=== PATIENT | female | born 1950 | race Caucasian/White ===

== ENCOUNTER → 2018-07-19 10:52 | Outpatient (CLI) | payer MEDICARE, SELFPAY ==
[2018-07-19 10:41] VITALS: BMI 39.2
== END ==
PROVIDERS: PCP Family Medicine; Referring Provider Orthopaedic Surgery; Visit Provider Orthopaedic Surgery
DX: M25.561 Pain in right knee (principal); M25.562 Pain in left knee

== ENCOUNTER → 2018-07-19 10:57 | Outpatient (CLI) | payer MEDICARE, SELFPAY ==
[2018-07-19 10:41] VITALS: BMI 39.2
--- NOTE | 2018-07-19 11:09 | RAD_ITS ---
STUDY: X-RAY - LEFT KNEE REASON FOR EXAM: Female, 67 years old. Knee pain. TECHNIQUE: 4 view(s) of the knee. COMPARISON: None. FINDINGS: Normal visualized distal femur. Normal visualized proximal tibia and fibula. Normal proximal tibiofibular articulation. There is no demonstrated fracture. There is severe degenerative arthrosis of the medial femorotibial compartment with severe joint space narrowing. There is severe degenerative arthrosis of the lateral femorotibial compartment with severe joint space narrowing. There is severe degenerative arthrosis of the patellofemoral articulation. There is no demonstrated joint effusion. The soft tissue structures are unremarkable. RAD/Knee 4 or More Views IMPRESSION: Severe degenerative arthrosis. Electronically Signed: Singh Gomez MD at 23:49 EST Tel , Service support ,
--- NOTE | 2018-07-19 11:09 | RAD_ITS ---
STUDY: X-RAY - RIGHT KNEE REASON FOR EXAM: Female, 67 years old. Knee pain. TECHNIQUE: 4 view(s) of the knee. COMPARISON: None. FINDINGS: Normal visualized distal femur. Normal visualized proximal tibia and fibula. Normal proximal tibiofibular articulation. There is no demonstrated fracture. There is severe degenerative arthrosis of the medial femorotibial compartment with severe joint space narrowing. There is severe degenerative arthrosis of the lateral femorotibial compartment with severe joint space narrowing. There is severe degenerative arthrosis of the patellofemoral articulation. There is lateral subluxation of the patella. There is no demonstrated joint effusion. The soft tissue structures are unremarkable. RAD/Knee 4 or More Views IMPRESSION: Severe degenerative arthrosis. Electronically Signed: Singh Gomez MD at 23:48 EST Tel , Service support ,
--- OUTSIDE RECORDS SUMMARY | 2018-09-20 21:12 | XMS RPT_ITS ---
:1950 Author Organization OHIP Care Team Providers Name Role Phone Armen Westfall Attending Unavailable Natalia Valladares Attending Unavailable BRYCE SOMERS Referring Unavailable Armen Westfall Attending Unavailable Armen Westfall Referring Unavailable Armen Westfall Attending Unavailable Armen Westfall Referring Unavailable ADONIS WEST Attending Unavailable IMNATHANIEL Referring Unavailable Bryce Somers Primary Care Unavailable PROBLEMS PROBLEMS DATE TYPE CONDITION / CODE ATTENDING STATUS SOURCE 07/19/2018 Unknown M25.561 - Pain in Armen Westfall Active [place] right knee / Community M25.561(ICD-10) Hospital Repository 07/19/2018 Unknown M25.562 - Pain in Armen Westfall Active [place] left knee / Community M25.562(ICD-10) Hospital Repository 07/19/2018 Unknown M17.0 - Bilateral Armne Westfall Active [place] primary Community osteoarthritis of Hospital knee / M17.0(ICD-10) Repository PROCEDURES PROCEDURES No Procedure Records FoundRESULTS RESULTS ORTHOPEDIC VISIT Observed: 07/19/2018 Status: F Source: [place] REPORT 12:38 PM [facility] REPOSITORY [facility] [address] [place] [address] [address] [place] [address] OFFICE VISIT Date of Service: 07/19/18 MR#: [id number] Acct: [id number] Name: CONCHIS CHAPPELL Rep #: [id number] : 1950 Provider: Armen Westfall DO Age/Sex: 67/F [place] [facility] Status: Signed Intake Vital Signs07/19/18 Body Mass Index (BMI) 39.2 07/19/18 Height 5 ft 3 in 07/19/18 Weight: 215 lb 07/19/18 Body Mass Index (BMI) 38.0 Intake Visit Reasons: BILAT KNEES Is patient in pain?: Yes Pain scale (1-10): 5 Allergies No Known Allergies Allergy (Verified 07/19/18 10:41) Medications levothyroxine 175 mcg tablet 175 mcg PO DAILY 05/18/18 [History Confirmed 05/18/18] lisinopril 10 mg-hydrochlorothiazide 12.5 mg tablet 1 tab PO DAILY 05/18/18 [History Confirmed 05/18/18] PFSH Medical History Thyroid disorder (Acute) Hypertension (Chronic) Surgical History History of hip replacement (Acute) Hx of cholecystectomy (Acute) Family History Father Heart disease Social History Smoking Status: Never smoker alcohol intake: never substance use type: does not use caffeine: Yes what type of physical activity do you participate in: walking seatbelt use: always do you feel safe at home: Yes additional social history: Gary- both are retired HPI BILAT KNEES: Details: CONCHIS CHAPPELL is a 67 year old F new patient here today for bilateral knee pain, left greater than right. Patient states that she has had bilateral knee pain for many years. Patient notes that she fell directly on her left knee which has increased her pain this past March. Her pain is over her lateral knees. Patient has popping and clicking. She has swelling. Patient has increased pain with ambulation or prolonged standing. She notes that she had supartz injections into her left knee a few years ago which was helpful. She denies any recent cortisone injections. Patient denies any formal physical therapy. She denies any knee bracing. Patient denies any recent xrays or MRI.Denies numbness, tingling or other associated symptoms.She denies any pain medications. Patient has a history of a right hip replacement in 2013. ROS Const Reports system reviewed and no additional complaints, except as docu Eyes Reports system reviewed and no additional complaints, except as docu ENT Reports system reviewed and no additional complaints, except as docu Card Reports system reviewed and no additional complaints, except as docu Resp Reports system reviewed and no additional complaints, except as docu GI Reports system reviewed and no additional complaints, except as docu Reports system reviewed and no additional complaints, except as docu Musc Reports joint pain Skin/Breast Reports system reviewed and no additional complaints, except as docu Neuro Yes system reviewed and no additional complaints, except as docu Psych Reports system reviewed and no additional complaints, except as docu Endo Reports system reviewed and no additional complaints, except as docu Ortho Exam Right Knee Patella Translation: 1 Left Knee Contralateral Normal: No Swelling: No Examination: Yes med jt line tenderness, Yes Lat jt line tenderness Stability: NML: Anterior Drawer, NML: Posterior Drawer, NML: Valgus 0, NML: Varus 0 Patella Translation: 1 KNEE: mild edema. -6 degrees of extension. no jt effusion or erythema. 68 degrees in flexion. faint pedal pulse. No gross motor or sensory deficit Supplemental Info Personally reviewed patients bilateral knee xrays from 07/19/18 which showed severe tricompartmental osteoarthritis. Assessment AND Plan Problems 1. Bilateral primary osteoarthritis of knee M17.0 Plan Discussed continued conservative care versus surgical management risk benefits and alternative alternatives for both were reviewed extensively including risk of bleeding infection blood clot continued pain and stiffness and expected postoperative course for total knee replacement Patient has a history of gastris with naprosyn. Spoke with the patient about being a candidate of a total knee arthroplasty due to her severe OA. Explained the surgery procedure and recovery. She will be in the hospital for a few days and then may go home for home PT. She would begin outpatient PT at 2 weeks post op. Spoke with her about the risk of stiffness. She should begin PT prior to surgery as she would like to wait for surgery to work on her range of motion and quad strengthening. Patient will be on a blood thinner. Follow up 1 month prior to surgery for surgery consent or sooner if pain, swelling, numbness or associated symptoms, or concerns develop. All questions answered. Patient in agreement of plan. Orders Orders: Coding Level of Care Code Off vis,est,level 3 Diagnoses Bilateral primary osteoarthritis of knee M17.0 07/19/18 1238 <Electronically signed by Armen Borruso DO> Date Armen Westfall DO Cosigner Signature: Date (if applicable) CC: Bryce Somers DO KNEE 4 OR MORE Observed: 07/19/2018 Status: F Source: [place] VIEWS 11:10 AM [facility] REPOSITORY [facility] Imaging Services [address] [place] [address] Knee 4 or More Views MR#: [id number] Acct: [id number] Name: CONCHIS CHAPPELL Rep #: [id number] : 1950 F 67 From: Singh Gomez MD PCP: Bryce Somers DO Status: REG CLI Study: Knee 4 or More Views Date of Exam: 07/19/18 Exam# [id number] Ordering Dr: Armen Westfall DO STUDY: X-RAY - RIGHT KNEE REASON FOR EXAM: Female, 67 years old. Knee pain. TECHNIQUE: 4 view(s) of the knee. COMPARISON: None. FINDINGS: Normal visualized distal femur. Normal visualized proximal tibia and fibula. Normal proximal tibiofibular articulation. There is no demonstrated fracture. There is severe degenerative arthrosis of the medial femorotibial compartment with severe joint space narrowing. There is severe degenerative arthrosis of the lateral femorotibial compartment with severe joint space narrowing. There is severe degenerative arthrosis of the patellofemoral articulation. There is lateral subluxation of the patella. There is no demonstrated joint effusion. The soft tissue structures are unremarkable. RAD/Knee 4 or More Views IMPRESSION: Severe degenerative arthrosis. Electronically Signed: Singh Gomez MD at 23:48 EST Tel , Service support , CC: Bryce Somers DO; Armen Westfall DO Digital Advertising Specialist: Signed KNEE 4 OR MORE Observed: 07/19/2018 Status: F Source: [place] VIEWS 11:10 AM [facility] REPOSITORY [facility] Imaging Services [address] [place] [address] Knee 4 or More Views MR#: [id number] Acct: [id number] Name: CONCHIS CHAPPELL Rep #: [id number] : 1950 F 67 From: Singh Gomez MD PCP: Bryce Somers DO Status: REG CLI Study: Knee 4 or More Views Date of Exam: 07/19/18 Exam# [id number] Ordering Dr: Armen Westfall DO STUDY: X-RAY - LEFT KNEE REASON FOR EXAM: Female, 67 years old. Knee pain. TECHNIQUE: 4 view(s) of the knee. COMPARISON: None. FINDINGS: Normal visualized distal femur. Normal visualized proximal tibia and fibula. Normal proximal tibiofibular articulation. There is no demonstrated fracture. There is severe degenerative arthrosis of the medial femorotibial compartment with severe joint space narrowing. There is severe degenerative arthrosis of the lateral femorotibial compartment with severe joint space narrowing. There is severe degenerative arthrosis of the patellofemoral articulation. There is no demonstrated joint effusion. The soft tissue structures are unremarkable. RAD/Knee 4 or More Views IMPRESSION: Severe degenerative arthrosis. Electronically Signed: Singh Gomez MD at 23:49 EST Tel , Service support , CC: Bryce Somers DO; Armen Westfall DO Digital Advertising Specialist: Signed FRAMING INSPECTOR OFFICE VISIT Observed: 05/26/2018 Status: F Source: [place] REPORT 4:15 PM [facility] [place] [place] [facility] [address] [place] [address] OFFICE VISIT Date of Service: 05/18/18 MR#: [id number] Acct: [id number] Name: CONCHIS CHAPPELL Rep #: [id number] : 1950 Provider: Natalia Valladares MD Age/Sex: 67/F Location: [facility] [place] Status: Signed Intake Vital Signs05/18/18 Height 5 ft 2.75 in 05/18/18 Weight: 220 lb 05/18/18 Body Mass Index (BMI) 39.2 05/18/18 Blood Pressure 110/90 H Intake Visit Reasons: PROLAPSE? REFERRED BY PCP Chief Complaint: Prolapse, referred by pcp Die Cast Operator Required: No Is patient in pain?: No Allergies No Known Allergies Allergy (Unverified 05/18/18 15:49) Medications levothyroxine 175 mcg tablet 175 mcg PO DAILY 05/18/18 [History Confirmed 05/18/18] lisinopril 10 mg-hydrochlorothiazide 12.5 mg tablet 1 tab PO DAILY 05/18/18 [History Confirmed 05/18/18] Is last menstrual period known: No Post menopausal: Yes Patient : No : No PFSH Medical History Thyroid disorder (Acute) Hypertension (Chronic) Surgical History History of hip replacement (Acute) Hx of cholecystectomy (Acute) Family History Father Heart disease Social History Smoking Status: Never smoker alcohol intake: never substance use type: does not use caffeine: Yes what type of physical activity do you participate in: walking seatbelt use: always do you feel safe at home: Yes additional social history: Gary- both are retired HPI PROLAPSE? REFERRED BY PCP: Details: CONCHIS CHAPPELL is a 67 year old who presents for rectal vaginal pressure, no urinary issues. no fecal incontinence. she has had this for several months worsening and her PCP referred her here. She denies any abnormal bleeding or discharge Pregancy History 4 Elective abortions Hx Para 4 Spontaneous abortions Past Pregnancies Del. DateName GA/Weeks Outcome Route Bth WeighInfant GeLabor LgtAnesthesiDel LocatProvider FOB t n h a n ROS Const Constitutional: Denies poor appetite, headache(s), fever(s), increased appetite, weight gain, weight loss or fatigue Cardio Card: Denies chest pain Resp Resp: Denies dyspnea or cough GI GI: Reports as per HPI; denies vomiting, nausea, abdominal pain or constipation : Reports as per HPI; denies urinary urgency, vaginal discharge, urinary frequency, vaginal itching, vaginal odor, vaginal dryness, urinary incontinence, urinary hesitancy, difficulty urinating, painful urination or nipple discharge Skin Skin/Breast: Denies breast lump, breast pain, breast skin changes, nipple discharge or change in hair Exam Const General: cooperative, healthy appearing, comfortable, no acute distress, well developed Nutritional Appearance: average body habitus Orientation: alert HENMT Head: normal to inspection, normocephalic Neck Neck: normal visual inspection, trachea midline Thyroid: thyroid normal Resp Effort AND Inspection: normal respiratory effort GI Inspection: normal to inspection, non-distended Palpation: soft, no hepatosplenomegaly General: bladder normal to palpation External Female Exam: normal external appearance, normal appearance of the urethra Urethra: normal appearance of the urethra, normal palpation, no discharge Speculum Exam - Vagina: normal appearance of the vagina, normal vaginal discharge Speculum Exam - Cervix: normal appearance of the cervix, nontender Bimanual Exam- Vagina AND Uterus: bladder normal to palpation, No cervical tenderness, normal bimanual exam, uterine size normal, uterine shape normal, uterine mobility normal, uterine consistency normal, normal cervical palpation, uterus non-tender Bimanual Exam- Adnexa, other: normal adnexae, adnexae mobile, no adnexal masses, rectocele, cystocele, vaginal apex descent Pelvic Support: rectocele, cystocele, vaginal apex descent Skin General: no rashes or lesions noted Assessment AND Plan Problems 1. Incomplete uterovaginal prolapse N81.2 Plan discussed options and patient fitted for pessary to try and if unsuccessful recommend urogyn consult Orders Referrals: Coding Level of Care Code Off vis,new,level 3 Diagnoses Incomplete uterovaginal prolapse N81.2 05/26/18 8057 <Electronically signed by Natalia Valladares MD> Date Natalia Adkins Signature: Date (if applicable) CC: ALLERGIES ALLERGIES DATE TYPE / CODE NAME / CODE REACTION SEVERITY SOURCE 07/19/2018 Drug No Known Unknown [facility] Allergy/416 Allergies/C59859 [facility] 426404(SNOM 0388(RXNORM) Repository ED CT) [id number] NO KNOWN [place] [address]([facility] CT) Repository ENCOUNTERS ENCOUNTERS ADMIT/DISCHARGE ACCOUNT NUMBER ADMITTING ENCOUNTER LOCATION SOURCE CLASS 07/19/2018 [id number] [facility] ding:HPRAD Repository 07/19/2018 [id number] Ambulatory [facility] ding:HPRAD Repository 07/19/2018/07/19/19 [id number] Ambulatory BMSBuilding: [place] [facility] Repository 05/18/2018/05/18/20 [id number] Ambulatory BMSBuilding: [place] [facility] Repository 01/27/2018 [id number] Ambulatory [facility] Repository CENTERBuildi ng:[id number] PAYERS PAYERS ENCOUNTER GUARANTOR PAYER SUBSCRIBER SOURCE 07/19/2018 CONCHIS Primary CONCHIS [place] [id number] Insurance:OWEN SCHAEFFER: Community [place] MEDICARE [place]olicy [id number] Number[place] Repository [id number]: (323) [id number] [phone] () Date:[id number] FELISA MILLS 52818SZ: 07/19/2018 Secondary NOT GIVENUNK [place] Insurance:SELF PAY [facility] Number: Effective Repository Date:2018-07-19 07/19/2018 CONCHIS Primary CONCHIS [place] [id number] Insurance:OWEN CHAPPELLB: Community [place] MEDICARE PPOPolicy [id number] Number: Repository [phone]: [phone]) [id number] [phone] (HP) Date:[id number] [address] [place] [address]AI: 07/19/2018 Secondary NOT GIVENUNK [place] Insurance:SELF PAY [facility] Hospital Number: Effective Repository Date:2018-07-19 07/19/2018 CONCHIS E Primary CONCHIS E [place] [id number] Insurance:BEATRIZKUMAR YVESCHANDUB: Community [place] MEDICARE PPOPolicy [id number] Number: Repository [id number]: (330) [id number] [phone] (HP) Date:4577-23-14AL [address] [place] [address]OQ: 07/19/2018 Secondary NOT GIVENUNK [place] Insurance:SELF PAY [facility] Number: Effective Repository Date:2018-07-19 05/18/2018 CONCHIS Primary CONCHIS [place] [id number] Insurance:BEATRIZKUMAR YVESCHANDUB: Community [place] MEDICARE PPOPolicy [id number] Number: Repository [id number]: (330) [id number] [phone] (HP) Date:[id number] [address] [place] [address] 51119NA: 05/18/2018 Secondary NOT GIVENUNK [place] Insurance:SELF PAY [facility] Number: Effective Repository Date:2018-05-18 01/27/2018 CONCHIS E Primary CONCHIS E [place] [facility] BALYERDOB: Insurance:OWEN SCHAEFFER: Health System MEDIBLUE [id number], [place] Number: [id number]: (330) [id number] [phone] (HP) Date:
== END ==
PROVIDERS: PCP Family Medicine; Referring Provider Orthopaedic Surgery; Visit Provider Orthopaedic Surgery
DX: M25.562 Pain in left knee (principal); M25.561 Pain in right knee
CPT/HCPCS: 73564

== ENCOUNTER → 2018-10-18 06:41 | Outpatient (CLI) | payer MEDICARE, SELFPAY ==
[2018-10-06 08:06] VITALS: BMI 38.6
--- NOTE | 2018-10-18 09:37 | STRESSREP_ITS ---
Stress Test Report Date: 10-18-18 Procedure: Pharmacologic stress nuclear imaging study Indications: Atrial fibrillation; CAD; preoperative cardiovascular evaluation Consent: Per the patient Procedure: The patient underwent pharmacologic (Regadenoson) evaluation with a peak heart rate of 126 beats per minute (83 %predicted maximal heart rate) and a peak blood pressure of 158/82 mmHg. The baseline ECG demonstrated atrial fibrillation. The peak pharmacologic ECG demonstrated no obvious ECG changes. There were no cardiac dysrhythmias pretest, during pharmacologic infusion, or recovery. There was no complaint of chest discomfort during pharmacologic infusion or recovery. The examination was discontinued secondary to completion of protocol. Impression: 1. Pharmacologic (Regadenoson) evaluation 2. Peak pharmacologic ECG with no obvious ECG changes. 3. There were no cardiac dysrhythmias pretest, during pharmacologic infusion, or recovery. 4. Nuclear images pending Myocardial perfusion imaging study: Technique: The patient was injected with 11.5 millicuries of technetium 99m Cardiolite and subsequently rest SPECT Cardiolite nuclear imaging was obtained in the horizontal long, vertical long, and short axis views. The patient underwent pharmacologic (Regadenoson) evaluation with a peak heart rate of 126 beats per minute (83 % percent predicted maximal heart rate) and a peak blood pressure of 158/82 mmHg. The patient was injected with 35.6 millicuries of technetium 99m Cardiolite and subsequently stress SPECT Cardiolite nuclear imaging was obtained in the horizontal long, vertical long, and short axis views. A gated Cardiolite study at peak stress was obtained. Interpretation: Rest and stress SPECT Cardiolite nuclear imaging status post realignment, normalization, and attenuation correction demonstrate relative uniform tracer uptake and myocardial perfusion appearing within normal limits. There is end systolic thickening and brightening. The gated Cardiolite study demonstrates myocardial thickening and inward wall motion. The reported LVEF is 69 %. Impression: 1. Rest and stress SPECT Cardiolite nuclear imaging demonstrate relative uniform tracer uptake and myocardial perfusion appearing within normal limits. 2. The gated Cardiolite study reports an LVEF of 69 %. This note was generated with Stroz Friedbergation software. It may contain incorrect words, spelling, and punctuation that were not noted in checking the note before signing.
== END ==
PROVIDERS: Family Provider Family Medicine; PCP Family Medicine; Referring Provider Internal Medicine Cardiovascular Disease; Visit Provider Internal Medicine Cardiovascular Disease
DX: Z01.810 Encounter for preprocedural cardiovascular examination (principal); I25.10 Atherosclerotic heart disease of native coronary artery without angina pectoris
CPT/HCPCS: 78452; 93017; A9500; A4216; J2785

== ENCOUNTER 2018-11-16 11:20 | Inpatient (IN) | payer MEDICARE, SELFPAY ==
--- NOTE | 2018-11-01 01:28 | HP_ITS ---
Intake Vital Signs 11/01/18 Body Mass Index (BMI) 38.6 Intake Visit Reasons: LEFT KNEE Is patient in pain?: Yes Allergies adhesive tape Adverse Reaction (Intermediate, Verified 11/01/18 10:39) Rash ibuprofen Adverse Reaction (Verified 10/06/18 08:07) Unknown sulfamethoxazole [From Febra] Adverse Reaction (Verified 10/06/18 08:07) Unknown trimethoprim [From ] Adverse Reaction (Verified 10/06/18 08:07) Unknown Medications apixaban 5 mg tablet 5 mg PO BID 09/13/18 [History Confirmed 10/06/18] aspirin 81 mg tablet,delayed release 81 mg PO DAILY 10/01/18 [History Confirmed 10/06/18] levothyroxine 150 mcg tablet 150 mcg PO DAILY 10/01/18 [History Confirmed 10/06/18] lisinopril 20 mg-hydrochlorothiazide 25 mg tablet 1 tab PO DAILY 10/01/18 [History] lactobacillus combination no.4 3 billion cell capsule 3,000 mmu cells PO DAILY 10/06/18 [History Confirmed 10/06/18] metoprolol succinate ER 50 mg tablet,extended release 24 hr 50 mg PO DAILY #90 tab 10/06/18 [Rx Confirmed 10/06/18] multivitamin tablet 1 tab PO DAILY 10/06/18 [History Confirmed 10/06/18] PFSH Medical History Essential (primary) hypertension (Chronic) Acquired hypothyroidism (Chronic) Obesity (Chronic) Osteoarthritis (Chronic) Rosacea (Chronic) Cystitis (Resolved) Surgical History History of total right hip replacement (Resolved) History of tubal ligation (Resolved) Hx of cholecystectomy (Resolved) Family History Father Heart disease CVA (cerebral vascular accident) Sister Cancer lung cancer Social History Smoking Status: Former smoker quit date: 03/22/90 pack-years: 30 alcohol intake: never substance use type: does not use caffeine: Yes what type of physical activity do you participate in: walking seatbelt use: always do you feel safe at home: Yes additional social history: Gary- both are retired HPI LEFT KNEE: Chief Complaint: Left knee Surgical H&P: Yes Details: Parts of this documentation were recorded by a scribe, this documentation accurately reflects the service provided and the decisions made by , Armen Westfall DO 11/01/18 [id number]. CONCHIS CHAPPELL is a 68 year old F here today for surgery consent and review clearance. Her pain continues to ache in the lateral and anterior aspect of the left knee that increases with weather changes and prolonged walking. She is not walking with any assistive devices today. Denies numbness, tingling or other associated symptoms. She does have some lower extremity left leg swelling today. She is taking Eliquis and a baby aspirin Ortho Exam Right Knee Skin/Wound: No erythema, No ecchymosis, Yes swelling Homans Sign: No Knee ROM: Yes ROM-Extension -20 to 0 (5), Yes ROM-Flexion 0-140 (100) Examination: Yes Med jt line tenderness Quad Atrophy: No Stability: NML: Anterior Drawer, NML: Valgus 0, NML: Valgus 30 Patella Translation: 1 Apprehension with Lateral Translation: No Patella Grind: Yes KNEE: No gross motor or sensory deficits she does have mild swelling bilateral lower extremity Left Knee Skin/Wound: Yes swelling Homans Sign: No Knee ROM: No ROM-Extension -20 to 0, No ROM-Flexion 0-140 Examination: Yes Lat jt line tenderness, Yes Pain with flexion Patella Translation: 1 Assessment & Plan Plan Reviewed her use of anti coagulant and that she will need to stop the Eliquis for 72 hrs prior to surgery than can begin again the morning after surgery. Will also get medical clearance from Dr Somers. stop aspirin 1 wk prior. Risks, benefits and alternatives of surgery reviewed including but not limited to bleeding, infection, nerve, artery and/or tissue damage, fracture, VTE, mechanical feel of the knee, continued pain, stiffness and expected post- operative course. Follow up 2 wks post op or sooner if pain, swelling, numbness or associated symptoms, or concerns develop. All questions answered. Patient in agreement of plan. Coding Level of Care Code Off vis,est,level 3 11/01/18 2774 <Electronically signed by Armen Westfall DO> Date Armen Westfall DO
[2018-11-01 10:27] VITALS: BMI 38.6
[2018-11-09 09:08] VITALS: BP 122/90; PULSE 99; RESP 16; TEMP 36.6; O2SAT 95; BMI 39.5
--- NOTE | 2018-11-09 09:33 | SDCEKG_ITS ---
Test Reason : Blood Pressure : / mmHG Vent. Rate : 093 BPM Atrial Rate : 300 BPM P-R Int : 000 ms QRS Dur : 098 ms QT Int : 352 ms P-R-T Axes : 000 -38 -18 degrees QTc Int : 437 ms Atrial fibrillation Left axis deviation Abnormal ECG Confirmed by VIANCA MCCORMICK ([id number]), photographic editor MEAGHAN SUAREZ ([id number]) on 11/15/2018 3:42:28 PM Referred By: Armen Westfall Confirmed By:VIANCA MCCORMICK
--- NOTE | 2018-11-11 12:33 | CASEMGMT ---
Attempted to contact patient at home phone [phone] to discuss discharge planning after LTK surgery, automated message states wireless customer not available. Gloria Rg LPN Clinical Support
[2018-11-16] VITALS (9 sets, daily range): BP systolic 104–135; BP diastolic 63–82; PULSE 79–113; RESP 16–18; TEMP 36–36.7; O2SAT 95–99; BMI 39.5
[2018-11-16] MEDS: oxyCODONE HCl Cr 10 MG Tablet PO (07:16)
[2018-11-16] MEDS: Acetaminophen 500 MG Tablet PO (07:16)
[2018-11-16] MEDS: Pregabalin 75 MG Capsule PO (07:17)
[2018-11-16] MEDS: Cefazolin 2 GM in 0.9% Normal Saline 100 ML IV ×2 (08:25→16:55)
[2018-11-16] MEDS: Morphine 4 MG/ML Syringe (10:15)
[2018-11-16] MEDS: Bupivacaine 0.5% PF 10 ML VIAL (10:15)
--- NOTE | 2018-11-16 11:30 | PCM.OPRPT ---
Report of Operation Date of Procedure: 11/16/18 Description of Surgical Findings:: Preoperative diagnosis: [Left] knee DJD with severe stiffness Postoperative diagnosis: [Same] Procedure: [Left] total knee arthroplasty Implant: [place] triathlon cemented [left] femoral component size 6, cemented tibial baseplate size 5, cemented [asymmetric] patella size 29, polyethylene X3 size [9] [PS] Anesthesia: Spinal with adductor canal block Tourniquet time: 120 minutes at 300 mmHg Complications: None Estimated blood loss: [25] cc Indication for procedure: This is a extent 68-year-old female with long standing degenerative joint disease of the knee who has failed conservative treatment and wished to proceed with elective total knee arthroplasty. She did have preoperative flexion contracture of 50 degrees from full extension and only 75 degrees of flexion. risk benefits and alternatives were reviewed including; risk of bleeding, infection, nerve artery and tissue damage, continued pain, postoperative stiffness, venous thromboembolism, need for postoperative rehabilitation, mechanical feel to the knee, and expected postoperative course. Procedure: The patient was met in the preoperative holding area. The operative extremity was identified by both patient and physician and was marked. Patient was met by anesthesia. An adductor canal block was placed by anesthesia postoperatively. The patient was brought back to the operating room on a wheeled cart and transferred to the operating table in the supine position. Anesthesia was started. A well-padded tourniquet was placed on the operative extremity. The patient was prepped and draped in the usual sterile fashion. A timeout was called to ensure the proper patient procedure and extremity were being contemplated. An Esmarch was used to exsanguinate the extremity. The tourniquet was inflated. A 10 blade scalpel was used to make a midline incision down through the skin and subcutaneous tissue. Skin retractors placed. Bovie was used to perform meticulous hemostasis. full-thickness flaps were elevated medial and lateral along the joint capsule. A deep blade scalpel was used to perform a medial parapatellar arthrotomy, due to the severity of the knee stiffness a quadriceps snip was performed. The knee was brought to full extension. A Bovie was used to release the soft tissues off the most proximal aspect of the medial tibial plateau a three-quarter inch curved osteotome was also used for this process. The infrapatellar fat pad was excised. [The fat pad was excised partially anterior lateral portion the anterior medial was elevated from the femur]. the patella had significant wear and with large osteophytes which were removed with a rongure and was everted. The knee was brought into flexion. An intramedullary drill was used followed by flexible intramedullary guide joe. The distal femoral cutting block was placed and set to remove 10 mm of bone and [5] degrees of valgus. The block was secured with pins and an oscillating saw was used to complete the distal femoral cut. During this, and all bony cuts retractors were used to protect the collateral ligaments. At this point a femoral sizer was used to measure the AP dimension of the femur. The sizer block was pinned in however there was significant posterior wear on the posterior femoral condyle so the cutting block was pinned and 0 degrees of external rotation which was perpendicular to Whitesides line and parallel to the epicondylar axis. The sizing block was removed and the appropriately sized 4-in-1 cutting block was placed over the previously made pinholes. It was checked with an alexander wing and the block was secured with pins. An oscillating saw was used to complete the anterior cut followed by the posterior cut followed by the posterior chamfer cut followed by the anterior chamfer cut. The block was removed as well as the fragments. A ronguer was used to remove excess osteophytes. The medial and lateral meniscus were excised as well as the ACL. A box cutting guide was attached to the distal end of the femur and pinned into place. The blunt end of an osteotome was placed over the tibial plateau and a reciprocating saw was used on the bower for the box cut. An osteotome was used at the base of the box. The cutting guide was removed and a Stefano and a Bovie were used to remove the bone and PCL from the box. A rasp was also used. At this point a PCL retractor was placed and an intramedullary drill was passed down the tibial canal followed by a solid intramedullary guide joe. The tibial cutting block was attached and set to remove 9 mm of bone from the high side. This was checked with an external alignment drop joe for slope and tilt. It was pinned into place. An oscillating saw was used to complete the tibial plateau cut and the block was removed. A large osteotome was used to elevate the fragment and a Rafael and a Bovie were used to free the fragment from the surrounding soft tissue. A rongeur was once again used to remove osteophytes a lamina juvenile court liaison was used to evaluate the posterior capsular structures. A three-quarter inch curved osteotome was used to remove posterior osteophytes. A spacer block was inserted in both extension and flexion to ensure adequate spacing. Trials were inserted full extension and flexion were achieved in varus and valgus stability throughout range of motion were seen, balancing techniques were performed. At this point the attention was turned towards the patella. A caliper was used to ensure sufficient bone stock to remove 10 mm of bone. A reamer was used to perform this task. Lug holes were made for the appropriate-sized patella. The patella trial was inserted and there was good patellar tracking with knee range of motion. The tibial baseplate was allowed to float into rotation and was marked on the tibial plateau with a Bovie. Trials were removed. The tibial baseplate was then sized and its preparation was completed with a fin punch. The knee was thoroughly irrigated. A posterior capsular injection was performed . The knee was brought into flexion and irrigated again. The tibial baseplate was cemented. Excess cement was removed with curettes. The femoral component was cemented. The polyethylene component was inserted. The knee was brought into full extension and placed on a bump. The patellar component was cemented. At this point a Betadine rinse was placed and thoroughly irrigated after a few minutes. At this point all gloves were changed. The knee was thoroughly irrigated the joint capsule was closed with #1 Ethibond. Tourniquet was let down followed by 0 Vicryl and 2-0 Vicryl in the subcutaneous tissues. followed by daljit in the skin. Dressing was applied in the form of Xeroform 4 x 4 ABD web roll and an Rell wrap from the foot to the groin. The patient tolerated the procedure well, all counts were correct patient was brought back to the PACU in stable condition.
--- NOTE | 2018-11-16 11:48 | RAD_ITS ---
STUDY: X-RAY - LEFT KNEE REASON FOR EXAM: Female, 68 years old. Total knee replacement. TECHNIQUE: 2 view(s) of the knee. COMPARISON: Comparison is made with prior study dated July 19, 2018. FINDINGS: Normal visualized distal femur. Normal visualized proximal tibia and fibula. Normal proximal tibiofibular articulation. The patient is status post total knee replacement. There is good alignment. Postoperative soft tissue changes. RAD/Knee 1 or 2 Views IMPRESSION: Total knee replacement. There is good alignment. Postoperative soft tissue changes. Electronically Signed: James Carter, at 14:00 EDT , Service support ,
[2018-11-16] MEDS: Lactated Ringers 1,000 ML 100 ML IV ×2 (13:05→23:03)
[2018-11-16] MEDS: Acetaminophen 500 MG Tablet 1000 MG PO ×2 (13:05→22:52)
[2018-11-16] MEDS: Glucerna Shake 120 ML LIQUID PO (16:55)
[2018-11-16] MEDS: oxyCODONE 5 MG Tablet PO ×2 (17:53→19:48)
[2018-11-16] MEDS: Senna/Docusate Sodium 1 Tablet 2 TABLET PO (22:51)
[2018-11-16] MEDS: HYDROmorphone 0.5 MG/0.5 ML SYRINGE IV (22:52)
[2018-11-16] MEDS: 0.9% NaCl Peripheral Flush Adult/Peds IV (22:52)
[2018-11-17] MEDS: Cefazolin 2 GM in 0.9% Normal Saline 100 ML IV (00:21)
[2018-11-17 04:45] VITALS: BP 132/114; PULSE 129; RESP 20; TEMP 36.7; O2SAT 95
[2018-11-17] MEDS: oxyCODONE 5 MG Tablet PO ×5 (04:50→23:22)
[2018-11-17] MEDS: Levothyroxine 150 MCG Tablet PO (05:02)
[2018-11-17] MEDS: Acetaminophen 500 MG Tablet 1000 MG PO ×3 (05:03→23:01)
[2018-11-17 06:19] LABS: Hematocrit 35.6 % (37-47); Hemoglobin 11.9 g/dl (12.0-15.0); Mean Corp Hgb Conc 33.4 g/gl (32-36); Mean Corpuscular Hgb 31.9 pg (27.0-32.0); Mean Corpuscular Volume 95.4 fL (81-99); Mean Platelet Vol. 10.5 fl (6.2-12.0); Platelet Count 188 K/mm3 (150-450); RBC Distribution Width CV 12.9 % (11.6-14.6); RBC Distribution Width SD 43.3 fl (35.1-43.9); Red Blood Count 3.73 M/mm3 (4.2-5.4); White Blood Count 11.4 K/mm3 (4.4-11.0)
[2018-11-17 06:20] LABS: Scan Indicated on CBC? Y/N NO
[2018-11-17] MEDS: APIXABAN 2.5 MG TABLET PO ×2 (06:25→23:00)
[2018-11-17 06:50] LABS: Anion Gap 9 (5-15); BUN 16 mg/dL (7-18); BUN/Creat Ratio 19.1 RATIO (10-20); Calcium,Total 8.1 mg/dL (8.5-10.1); Chloride 102 mmol/L (98-107); Creatinine, Serum 0.84 mg/dL (0.55-1.02); EST Glomerular Filtration Rate 72 mL/min (>60); Est Glom Filt Rate - Afr Amer 87 mL/min (>60); Estimated Creatinine Clearance 52.29 ml/min; Glucose 150 mg/dL (74-106); Potassium 3.7 mmol/L (3.5-5.1); Sodium Level 134 mmol/L (136-145)
[2018-11-17] MEDS: 0.9% NaCl Peripheral Flush Adult/Peds IV ×2 (07:15→23:24)
--- NOTE | 2018-11-17 07:27 | PCM.PN.ORT ---
Patient Problems: Active and Suspected Problems (Last Reviewed 10/06/18 @ 10:56 by Wilian Taylor MD) Total knee replacement status (Acute) Subjective: Seen and examined doing well. No fevers chills nausea vomiting shortness of breath chest pain pain controlled. Was able to sleep overnight no complaints - Physical Exam General: Alert, Oriented x3, Cooperative, No apparent distress Extremities: - - Left lower extremity dressing clean dry and intact compartments soft thigh and calf neurovascularly intact EHL tibialis anterior gastrocsoleus intact sensation to light touch good pulses Vital Signs Temp Pulse Resp BP Pulse Ox 98.0 F 129 H 20 H 132/114 H 95 11/17/18 04:45 11/17/18 04:45 11/17/18 04:45 11/17/18 04:45 11/17/18 04:45 Oxygen Delivery Method Room Air Weight: 223 lb 1.725 oz Body Mass Index (BMI) 39.5 Intake and Output for Last 24 Hours 11/15/18 11/16/18 11/17/18 23:59 23:59 23:59 Intake Total 4331 / 4331 308 / 308 Balance 4331 / 4331 308 / 308 Laboratory Tests Past 24 Hrs 11/17/18 11/17/18 05:50 05:50 WBC 11.4 H RBC 3.73 L Hgb 11.9 L Hct 35.6 L MCV 95.4 MCH 31.9 MCHC 33.4 RDW 12.9 RDW Differential 43.3 Plt Count 188 MPV 10.5 Sodium 134 L Potassium 3.7 Chloride 102 Carbon Dioxide 23.0 Anion Gap 9 BUN 16 Creatinine 0.84 Estim Creat Clear Calc 52.29 Est GFR (MDRD) Af Amer 87 Est GFR (MDRD) Non-Af 72 BUN/Creatinine Ratio 19.1 Glucose 150 H Calcium 8.1 L Medical Necessity - Tobacco Use Smoking Status: Former smoker Tobacco Use: Cigarettes Assessment/Plan All Active Problems (Last Reviewed 10/06/18 @ 10:56 by Wilian Taylor MD) Total knee replacement status (Acute) Preop cardiovascular exam (Acute) New onset atrial fibrillation (Acute) Postop day #1 left total knee arthroplasty Eliquis 2.5 mg twice daily started this a.m. we will resume 5 mg twice daily her home dose tomorrow morning continue SCDs JOHN hose physical therapy weightbearing as tolerated plan for discharge home tomorrow with home health care Dressing to be changed in the a.m. by nursing and cleaned daily at this point
[2018-11-17 08:15] VITALS: PULSE 126
[2018-11-17] MEDS: Metoprolol(XL)Succ 50 MG Tablet PO (08:15)
[2018-11-17] MEDS: Senna/Docusate Sodium 1 Tablet 2 TABLET PO ×2 (08:15→23:00)
[2018-11-17] MEDS: Multivitamins,Therapeutic Tablet 1 TABLET PO (08:15)
[2018-11-17] MEDS: hydroCHLOROthiazide 25 MG Tablet PO (08:16)
[2018-11-17] MEDS: Glucerna Shake 120 ML LIQUID PO ×2 (08:16→11:07)
[2018-11-17] MEDS: Lisinopril 20 MG Tablet PO (08:16)
[2018-11-17 10:45] VITALS: BP 128/85; PULSE 92; RESP 18; TEMP 37.1; O2SAT 95
--- NOTE | 2018-11-17 12:10 | CASEMGMT ---
NEHEMIAS CROFT Face to Face with patient for initial transition planning/care coordination assessment. RN CM introduced self and role at [facility]. Patient sitting in chair, alert and oriented, at bedside. Patient willing to participate in assessment and is able to answer all questions appropriately. Care providers, pharmacy, and demographics verified. Patient wishes to discharge home with [facility] and would like [facility]. Patient states she has no further needs or concerns at this time. CM to follow for discharge planning needs that may arise. Referral sent to [facility] and they are able to accept the patient. PCP: Yonis Specialists: Claudia associate counsel Preferred Pharmacy: [facility] Mian Insurance: [employer] [facility] Prescription Benefit: yes Living Will/HPOA: yes, Gary Michelle LNOK: Living Arrangements: Patient lives with in 1 story home with 3 step to enter the home. will be getting a railing for steps. Transportation: DME/HHC: Patient states she has a walker, shower chair, raised toilet seat at home. HHC setup with [facility]. Disposition Plan: Patient to discharge home with [facility], family support, and follow-up plans in place. Inez PACHECO, RN, CM
[2018-11-17 16:45] VITALS: BP 115/63; PULSE 102; RESP 18; TEMP 36.9; O2SAT 97
[2018-11-17 22:45] VITALS: BP 129/94; PULSE 118; RESP 20; TEMP 37; O2SAT 96
[2018-11-18] MEDS: oxyCODONE 5 MG Tablet PO ×3 (03:47→12:08)
[2018-11-18 03:49] VITALS: BP 117/72; PULSE 117; RESP 18; TEMP 36.8; O2SAT 96
[2018-11-18 05:50] LABS: Hematocrit 35.5 % (37-47); Hemoglobin 11.8 g/dl (12.0-15.0); Mean Corp Hgb Conc 33.2 g/gl (32-36); Mean Corpuscular Hgb 31.8 pg (27.0-32.0); Mean Corpuscular Volume 95.7 fL (81-99); Mean Platelet Vol. 10.3 fl (6.2-12.0); Platelet Count 176 K/mm3 (150-450); RBC Distribution Width CV 13.2 % (11.6-14.6); RBC Distribution Width SD 44.1 fl (35.1-43.9); Red Blood Count 3.71 M/mm3 (4.2-5.4); Scan Indicated on CBC? Y/N NO
[2018-11-18] MEDS: Levothyroxine 150 MCG Tablet PO (06:15)
[2018-11-18] MEDS: Acetaminophen 500 MG Tablet 1000 MG PO (06:16)
--- NOTE | 2018-11-18 07:17 | DCINST_ITS ---
Discharge Diet: No Restrictions Weight Bearing Status: Weight bearing as tolerated Call your doctor if you observe: Fever of 101 or Higher, Shortness of breath, Chest pain, Uncontrolled pain Additional Instructions: Ice and elevate next week while not ambulating. Encourage ambulation weightbearing as tolerated. Encourage FULL knee extension and flexion 1 time EVERY time you get up and down and MULTIPLE times per day. Begin showering postop day #3. Remove the dressing prior to shower gently wash with warm water and antibacterial soap then pat dry place ABD pad and JOHN hose over top. This is to be done daily. If not showering daily must clean incision and change dressing daily. Do not allow animals near incision keep clean. Follow anticoagulation recommendations. Call Dr. Westfall with any concerns. Allergies/Adverse Reactions: Allergies adhesive tape Adverse Reaction (Intermediate, Verified 11/09/18 09:01) Rash ibuprofen Adverse Reaction (Verified 11/09/18 09:01) Unknown sulfamethoxazole [From ] Adverse Reaction (Verified 11/09/18 09:01) Unknown trimethoprim [From ] Adverse Reaction (Verified 11/09/18 09:01) Unknown Medications to take at Discharge apixaban 5 mg tablet 5 mg PO BID 09/13/18 levothyroxine 150 mcg tablet 150 mcg PO DAILY 10/01/18 lisinopril 20 mg-hydrochlorothiazide 25 mg tablet 1 tab PO DAILY 10/01/18 lactobacillus combination no.4 3 billion cell capsule 3,000 mmu cells PO DAILY 10/06/18 multivitamin tablet 1 tab PO DAILY 10/06/18 Metoprolol Succinate 50 mg PO DAILY 11/09/18 Apixaban [Eliquis] 5 mg PO BID tablet 11/18/18 Oxycodone [Oxyir] 5 - 10 mg PO Q4H PRN PRN 7 Days tablet 11/18/18 Oxycodone [Oxyir] 5 - 10 mg PO Q4H PRN PRN 7 Days #60 tablet 11/18/18 The following prescriptions were given: Oxycodone [Oxyir] 5 - 10 mg PO Q4H PRN PRN 7 Days tablet PRN Reason: Mod-Severe Pain (4-10/10) Oxycodone [Oxyir] 5 - 10 mg PO Q4H PRN PRN 7 Days #60 tablet PRN Reason: Pain Primary Care Physician: Bryce Somers [Primary Care Provider] - Test Results: Test results from this visit will be discussed in further detail at your follow- up appointment, if applicable. Please Follow Up With: Armen Westfall DO - 2 weeks
--- NOTE | 2018-11-18 07:21 | DS.PCM_ITS ---
Discharge Date and Diagnosis - Problem List Patient Problems: Active and Suspected Problems (Last Reviewed 10/06/18 @ 10:56 by Wilian Taylor MD) Total knee replacement status (Acute) Date of Admission: 11/16/18 Date of Discharge: 11/18/18 - Primary Discharge Diagnosis Active and Suspected Problems (Last Reviewed 10/06/18 @ 10:56 by Wilian Taylor MD) Total knee replacement status (Acute) - Secondary Discharge Diagnosis Chronic Problems (Last Reviewed 10/06/18 @ 10:56 by Wilian Taylor MD) Essential (primary) hypertension (Chronic) Hospital Course and Treatment Summary of Care Provided: The patient is a 68 year old F who has long history of degenerative joint disease to the knee who has failed conservative treatment and wished to undergo elective total knee arthroplasty. Patient underwent the A4 mentioned procedure on the admission date without any intraoperative complications, she did have a severe stiffness and deformity of the knee. She did receive pre-and postoperative antibiotics which were discontinued within 23 hours postoperatively. She did receive spinal anesthesia as well as an adductor canal block postoperatively her pain was controlled with IV and transition to p.o. pain medication she will be discharged home with oxycodone and will continue Tylenol as well. She had minimal intraoperative blood loss and tranexamic acid was administered there was no need for postoperative blood transfusion her vital signs remained stable. She was started on both mechanical and chemical DVT per prophylaxis postoperatively in the form of SCDs JOHN hose and Eliquis 2.5 mg twice daily on postop day #1 postop day #2 she resumed her 5 mg twice daily dose for which she will continue post hospital discharge. Her dressing was changed on postop day #2 without any concerning signs she will begin showering on postop day #3 and will change her dressing daily at this point. She will follow-up in the office in 2 weeks. No intrahospital complications. Patient Problems: Active and Suspected Problems (Last Reviewed 10/06/18 @ 10:56 by Wilian Taylor MD) Total knee replacement status (Acute) Subjective: Alert and oriented no acute distress no complaints of chest pain palpitation shortness of breath nausea vomiting or dizziness slept well overnight - Physical Exam General: Alert, Oriented x3, Cooperative Musculoskeletal: - - Incision well approximated daljit intact nose significant drainage no sign of infection compartments soft Vital Signs Temp Pulse Resp BP Pulse Ox 98.2 F 117 H 18 117/72 96 11/18/18 03:49 11/18/18 03:49 11/18/18 03:49 11/18/18 03:49 11/18/18 03:49 Oxygen Delivery Method Room Air Weight: 223 lb 1.725 oz Body Mass Index (BMI) 39.5 Intake and Output for Last 24 Hours 11/16/18 11/17/18 11/18/18 23:59 23:59 23:59 Intake Total 4331 / 4331 308 / 308 650 / 650 Balance 4331 / 4331 308 / 308 650 / 650 Laboratory Tests Past 24 Hrs 11/18/18 05:18 WBC 13.0 H RBC 3.71 L Hgb 11.8 L Hct 35.5 L MCV 95.7 MCH 31.8 MCHC 33.2 RDW 13.2 RDW Differential 44.1 H Plt Count 176 MPV 10.3 Discharge Diet: No Restrictions Weight Bearing Status: Weight bearing as tolerated Call your doctor if you observe: Fever of 101 or Higher, Shortness of breath, Chest pain, Uncontrolled pain Home Medications: Medications to take at Discharge apixaban 5 mg tablet 5 mg PO BID 09/13/18 levothyroxine 150 mcg tablet 150 mcg PO DAILY 10/01/18 lisinopril 20 mg-hydrochlorothiazide 25 mg tablet 1 tab PO DAILY 10/01/18 lactobacillus combination no.4 3 billion cell capsule 3,000 mmu cells PO DAILY 10/06/18 multivitamin tablet 1 tab PO DAILY 10/06/18 Metoprolol Succinate 50 mg PO DAILY 11/09/18 Apixaban [Eliquis] 5 mg PO BID tablet 11/18/18 Oxycodone [Oxyir] 5 - 10 mg PO Q4H PRN PRN 7 Days tablet 11/18/18 Oxycodone [Oxyir] 5 - 10 mg PO Q4H PRN PRN 7 Days #60 tablet 11/18/18 Following Prescrptions Were Given to Patient: Oxycodone [Oxyir] 5 - 10 mg PO Q4H PRN PRN 7 Days tablet PRN Reason: Mod-Severe Pain (4-1010) Oxycodone [Oxyir] 5 - 10 mg PO Q4H PRN PRN 7 Days #60 tablet PRN Reason: Pain Primary Care Physician: Bryce Somers [Primary Care Provider] - Please Follow Up With: Armen Westfall DO - 2 weeks Additional Instructions: Ice and elevate next week while not ambulating. Encourage ambulation weightbearing as tolerated. Encourage FULL knee extension and flexion 1 time EVERY time you get up and down and MULTIPLE times per day. Begin showering postop day #3. Remove the dressing prior to shower gently wash with warm water and antibacterial soap then pat dry place ABD pad and JOHN hose over top. This is to be done daily. If not showering daily must clean incision and change dressing daily. Do not allow animals near incision keep clean. Follow an ticoagulation recommendations. Call Dr. Westfall with any concerns. Medical Necessity - Tobacco Use Smoking Status: Former smoker Tobacco Use: Cigarettes Meaningful Use Info Meaningful Use Diagnoses (Choose all that apply): None applicable
[2018-11-18] MEDS: Multivitamins,Therapeutic Tablet 1 TABLET PO (08:29)
[2018-11-18] MEDS: Glucerna Shake 120 ML LIQUID PO ×2 (08:33→11:20)
[2018-11-18 08:34] VITALS: BP 127/83; PULSE 135; RESP 18; TEMP 36.1; O2SAT 97
[2018-11-18 09:40] VITALS: PULSE 118
[2018-11-18 09:42] VITALS: PULSE 118
[2018-11-18] MEDS: Metoprolol(XL)Succ 50 MG Tablet PO (09:42)
[2018-11-18] MEDS: Lisinopril 20 MG Tablet PO (09:42)
[2018-11-18] MEDS: APIXABAN 5 MG TABLET PO (09:43)
[2018-11-18] MEDS: hydroCHLOROthiazide 25 MG Tablet PO (09:43)
[2018-11-18] MEDS: Senna/Docusate Sodium 1 Tablet 2 TABLET PO (09:43)
[2018-11-18 11:15] VITALS: BP 140/85; PULSE 116; RESP 18; TEMP 36.7; O2SAT 94
== END 2018-11-18 13:10 | disposition home or self-care (01) | DRG 470 ==
PROVIDERS: Admitting Provider Orthopaedic Surgery; Family Provider Family Medicine; PCP Family Medicine; Referring Provider Orthopaedic Surgery; Visit Provider Orthopaedic Surgery
PROC: 0SRD0J9 Replacement of Left Knee Joint with Synthetic Substitute, Cemented, Open Approach (ICD-10-PCS; CPT 27447; principal; 2018-11-16 08:00)
DX: M17.12 Unilateral primary osteoarthritis, left knee (principal); I10 Essential (primary) hypertension; I48.91 Unspecified atrial fibrillation; E03.9 Hypothyroidism, unspecified; Z87.891 Personal history of nicotine dependence; Z79.01 Long term (current) use of anticoagulants; Z96.641 Presence of right artificial hip joint; Z98.51 Tubal ligation status; Z90.49 Acquired absence of other specified parts of digestive tract; L71.9 Rosacea, unspecified; E66.9 Obesity, unspecified; Z68.39 Body mass index [BMI] 39.0-39.9, adult
CPT/HCPCS: 36415; 73560; 80048; 85027; 87081; 93005; 97110; 97116; 97162; 97166; 97530; 97535; C1776; J7120; A4216; J2405; J3490

== ENCOUNTER 2018-12-28 07:20 | Day surgery (SDC) | payer MEDICARE, SELFPAY ==
[2018-12-27 10:50] VITALS: BMI 39.5
[2018-12-28] VITALS (9 sets, daily range): BP systolic 100–153; BP diastolic 66–129; PULSE 89–143; RESP 18–24; TEMP 36.2–36.6; O2SAT 93–100; BMI 38.2
--- NOTE | 2018-12-28 09:57 | PCM.HP.BLA ---
History and Physical Date of Admission: 12/28/18 MR#: [id number] Acct: [id number] Name: CONCHIS CHAPPELL Rep #: [id number] : 1950 Provider: Armen Westfall DO Age/Sex: 68/F Location: [facility] [place] Status: Signed Intake Vital Signs 12/27/18 Body Mass Index (BMI) 39.5 Intake Visit Reasons: LEFT KNEE Chief Complaint: 6 week post left TKA. Accompanied by: Self Is patient in pain?: Yes Pain scale (1-10): 3 Allergies adhesive tape Adverse Reaction (Intermediate, Verified 12/27/18 10:24) Rash ibuprofen Adverse Reaction (Verified 12/27/18 10:24) Unknown sulfamethoxazole [From ] Adverse Reaction (Verified 12/27/18 10:24) Unknown trimethoprim [From ] Adverse Reaction (Verified 12/27/18 10:24) Unknown Medications apixaban 5 mg tablet 5 mg PO BID 09/13/18 [History Confirmed 12/27/18] levothyroxine 150 mcg tablet 150 mcg PO DAILY 10/01/18 [History Confirmed 12/27/18] lisinopril 20 mg-hydrochlorothiazide 25 mg tablet 1 tab PO DAILY 10/01/18 [History Confirmed 12/27/18] lactobacillus combination no.4 3 billion cell capsule 3,000 mmu cells PO DAILY 10/06/18 [History Confirmed 12/27/18] multivitamin tablet 1 tab PO DAILY 10/06/18 [History Confirmed 12/27/18] Metoprolol Succinate 50 mg PO DAILY 11/09/18 [History Confirmed 12/27/18] Apixaban [Eliquis] 5 mg PO BID tab 11/18/18 [Rx Confirmed 12/27/18] hydrocodone 5 mg-acetaminophen 325 mg tablet 1 tab PO Q4H PRN #50 tab 11/24/18 [Rx Confirmed 12/27/18] hydrocodone 5 mg-acetaminophen 325 mg tablet 1 tab PO Q6H PRN #56 tab 12/06/18 [Rx Confirmed 12/27/18] PFSH Medical History Essential (primary) hypertension (Chronic) Acquired hypothyroidism (Chronic) Obesity (Chronic) Osteoarthritis (Chronic) Rosacea (Chronic) Cystitis (Resolved) Surgical History History of total right hip replacement (Resolved) History of tubal ligation (Resolved) Hx of cholecystectomy (Resolved) Family History Father Heart disease CVA (cerebral vascular accident) Sister Cancer lung cancer Social History (Updated 12/27/18 @ 11:53 by Armen Westfall DO) Smoking Status: Former smoker quit date: 03/22/90 pack-years: 30 alcohol intake: never substance use type: does not use caffeine: Yes what type of physical activity do you participate in: walking seatbelt use: always do you feel safe at home: Yes additional social history: Gary- both are retired HPI LEFT KNEE: Chief Complaint: Left knee arthrofibrosis Surgical H&P: Yes Details: Parts of this documentation were recorded by a scribe, this documentation accurately reflects the service provided and the decisions made by me, Armen Westfall DO 12/27/18 08. CONCHIS CHAPPELL is a 68 year old F here today for 6 week post left TKA. Continues on physical therapy with out complaint. site still has some bruising, but pt states feels tight and has been using ice. She rates pain a 3/10 will come and go with ambulation, and also notes that movement feels stiff. Last Thursday a small red lump was noticed at top of incision site, and was asked if a stitch or staple may have been left in, she denies any abnormal discomfort in that area. To recall her preoperative range of motion was very poor for many years Ortho Exam Right Knee Date of Surgery: 11/16/18 Skin/Wound: Yes swelling Knee ROM: No ROM-Extension -20 to 0 (8), No ROM-Flexion 0-140 (58) Examination: Yes Pain with flexion Left Knee Skin/Wound: No ecchymosis, No erythema, No swelling Homans Sign: Yes Knee ROM: Yes ROM-Extension -20 to 0 (8), Yes ROM-Flexion 0-140 (158) KNEE: Small stitch abscess at the superior part of the incision no sign of infection of the knee compartments soft thigh and calf. There is mild low intensity purplish discoloration which is appropriate from her bruising. Negative [facility] Assessment & Plan Problems 1. Orthopedic aftercare Z47.89 2. 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 Instructed to continue to progress through PT and she may benefit from an LENO to get to a goal of 90. She has the same rom as prior to surgery but needs some progression. Explained that she will have some return of pain and we will prescribe pain medication to aid in relief to work on rom. Instructed to monitor the knee for redness from the suture and keep it clean and dry. She may resume driving when she can get in and out of car well and is not using pain medications. Reviewed the pre-operative plans with the patient. Risks and benefits of the procedure were fully explained, including but not limited to infection, neurovascular injury, continued pain, arthritis, stiffness, need for further surgery, re-injury, DVT, PE, general risks of anesthesia, and loss of limb or life. The patient understands all the risks and does wish to proceed with written consent. Also risk of tendon rupture or periprosthetic fracture Follow up in one month or sooner if pain, swelling, numbness or associated symptoms, or concerns develop. All questions answered. Patient in agreement of plan. 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
[2018-12-28] MEDS: Cefazolin 2 GM in 0.9% Normal Saline 100 ML IV (09:58)
--- NOTE | 2018-12-28 10:28 | OP.PCM_ITS ---
Report of Operation Date of Procedure: 12/28/18 Description of Surgical Findings:: Preoperative diagnosis: Left knee arthrofibrosis Postoperative diagnosis: Same Procedure: Left knee manipulation under anesthesia Anesthesia: MAC EBL: None Complications: None Condition: Stable to PACU Indication for procedure: This is a 68-year-old female patient who underwent total knee arthroplasty approximately 6 weeks ago. She had a history of knee contracture with only about 50 degrees of knee flexion for many years pos toperatively she failed to gain flexion limiting her flexion to only 50 degrees we did discuss risk benefits of a manipulation including risk of bleeding tendon rupture fracture increased pain and recurrence of contracture Procedure: Patient was met in the preoperative holding area once again the operative extremity was identified by both patient and physician was marked. Patient was brought back to the operating room and transferred the operating table supine position anesthesia was started. A timeout was called to ensure the proper patient procedure and extremity are being contemplated. With gentle technique the knee was brought to full extension patellar mobilization was performed followed by flexion of the knee able to achieve 100 degrees of knee flexion with the knee just hanging to gravity patient tolerated the procedure well she was brought back to the PACU in stable condition no complications
== END 2018-12-28 11:54 | disposition home or self-care (01) ==
LOC: SDC 07:21 → AC 07:23
PROVIDERS: Family Provider Family Medicine; PCP Family Medicine; Referring Provider Orthopaedic Surgery; Visit Provider Orthopaedic Surgery
PROC: (CPT 27570; principal; 2018-12-28 09:05)
DX: M24.662 Ankylosis, left knee (principal); I10 Essential (primary) hypertension; M19.90 Unspecified osteoarthritis, unspecified site; E66.9 Obesity, unspecified; Z68.38 Body mass index [BMI] 38.0-38.9, adult; Z71.3 Dietary counseling and surveillance; L71.9 Rosacea, unspecified; E03.9 Hypothyroidism, unspecified; Z79.899 Other long term (current) drug therapy; Z87.891 Personal history of nicotine dependence; T81.41XA Infection following a procedure, superficial incisional surgical site, initial encounter; Y83.8 Other surgical procedures as the cause of abnormal reaction of the patient, or of later complication, without mention of misadventure at the time of the procedure
CPT/HCPCS: 27570; J7120

== ENCOUNTER 2019-01-20 16:30 | Outpatient (RCR) | payer MEDICARE, SELFPAY ==
[2018-11-16 12:54] VITALS: BMI 39.5
--- NOTE | 2018-12-08 16:17 | HP.PTEVAL_ITS ---
Patient's Visit Information CONCHIS CHAPPELL is a 68 year old F referred to Physical Therapy by Armen Westfall DO with a diagnosis of Left TKR 11/16/18. Date of Evaluation: 12/08/18 Physical Therapist: Tiana Lara DPT - Visit Plan Frequency: 3x /Week Duration: 4 Weeks Plan: Focus on LE ROM and functional mobility- sustained holds for ROM - Subjective Findings: Left TKR 11/16/[address] Gonzalez. Went home a few days after surgery- has had home health- discharged yesterday. Single story home with a basement- not [employer] using- lives with her who can help as needed. 2 stairs to enter home. Knee was bad for at least 15 years prior to surgery- no AD prior to surgery and was fully I. 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 The knee is sore- and feels really tight. Pain is located on the medial and lateral joint line- no radiating pain. Describes the pain as achy. Worst: 5/10 Agg: standing on it for awhile. Eases: elevating it, ice, medication Best: 3/10. Sleep: not disturbed- sleeping on the couch in a reclyned position. She is able to roll a little better now. Has exercises from home health- most she ever got was 75 degrees- but is mostly around 65 degrees of flexion. PMHx/Meds: none since surgery. - Objective Posture: FH, RS, increased kyphosis- can correct but does not maintan. Gait: straight cane- decreased stance on the left LE with poor heel/toe pattern and decreased bandar. Stairs: asc- recip with circumduction bilateral LE to avoid bending the knee uses 2 HR, desc- sideways with the right LE leading 2 hands on single rail. HR/TR: able with UE A- HR decreased by 50%. SLS: Weight shift but can only SLS for approx 2 seconds. Observation: incision healing well- single steri-strip left. ROM: 5-65 degrees. Strength: Ankle: 4+/5, Knee: 4/5, Hip: 4- /5 throughout Core: fair minus. Palpation: tender along medial and lateral joint line - Goals Goal 1:: Patient will be I with HEP and progression Goal Time Frame: 4-6 Weeks Goal 2:: Patient will asc/desc 8 stairs recip with 1 HR Goal Time Frame: 4-6 Weeks Goal 3:: Patient will ambulate >300 feet with a normalized gait pattern and no AD Goal Time Frame: 4-6 Weeks Goal 4:: Patient will report sleeping through the night for 1 week in bed with no pain Goal Time Frame: 4-6 Weeks Goal 5:: Patient will demo 0-100 degrees of ROM Goal Time Frame: 4-6 Weeks - Rehabilitation Potential Physical Therapy Diagnosis: Patient presents with hypomobility- she has decreased ROm, strength, flex and muscular endurance s/p TKR leading to abnormal gait and decreased particpiation in ADL's. Rehabilitation Potential: Fair - Anticipated Interventions Patient/Client Instruction: Educate patient on: Benefits of Fitness Program Therapeutic Exercise to Include: Strength training, Endurance training, Balance training, Coordination, Agility training, Body mechanics, Postural training, Flexibilty training, Gait and locomotor training, Passive ROM, Active ROM, Dynamic Lumbar Stabilization, Scapular Strength/Stabilization For the Purpose of:: To improve muscle performance and motor function Manual Therapy Techniques to Include: Passive ROM, Soft tissue mobilization For the Purpose of:: To improve nutrient delivery to tissue TENS: Yes Cryotherapy (ice pack, ice massage): Yes Thermo therapy (hot pack): Yes Ultrasound (thermal/non thermal): No For the Purpose of:: To decrease pain Thank you for the opportunity to evaluate your patient. For Medicare and Medicare HMO plans, please review the plan of care and approve it. It will need to be FAXED BACK to us at [phone] for Medicare purposes. For Medicare only, by signing this I certify the plan of care. Please let me know if there are questions or concerns regarding this plan of care. Physician Signature: Date:
--- NOTE | 2019-01-20 16:59 | HP.PTDCSUM ---
HP - PT D/C Summary It has been my pleasure to treat CONCHIS CHAPPELL under orders from Armen Westfall DO, for the diagnosis of Left TKR 11/16/18 for a total of 7 visit(s). Discharge Date: Please see the following information for a summary of their discharge status. - Subjective Subjective: Reports that she had to have a manipulation and its bending better now. Worst: 5/10 Best: 3/10. There is no ADL's that she is unable to perform. Feels that she is 85% better. The other knee is really bad but she does not want to have it done becuase of the pain. - Pain LEFT KNEE Pain Intensity (Out of 10): 3 - Overall Improvement % Improvement: 85 - Objective Objective/Function: Posture: FH, RS, increased kyphosis- can correct but does not maintan. Gait: no AD- decreased stance on the left LE with decreased heel/toe pattern. Stairs: step to pattern with 2 HR HR/TR: able with UE A. SLS: Weight shift but can only SLS for approx 4 seconds. ROM: 5-90 degrees. Palpation: tender along medial and lateral joint line Strength: Ankle: 4+/5, Knee: 4+5, Hip: 4-/5 throughout Core: fair minus. - Goals Goal 1:: Patient will be I with HEP and progression Goal Progress: Goal Met Goal 2:: Patient will asc/desc 8 stairs recip with 1 HR Goal Progress: Progressing Goal 3:: Patient will ambulate >300 feet with a normalized gait pattern and no AD Goal Progress: Progressing Goal 4:: Patient will report sleeping through the night for 1 week in bed with no pain Goal Progress: Goal Met Goal 5:: Patient will demo 0-100 degrees of ROM Goal Progress: Progressing - Plan Plan: Patient reports that she would like to be discharged to home exercise program. Reviewed today. Encouraged ROM. - D/C Information If there are questions or concerns regarding this patient's physical therapy, please feel free to call me at [phone]. Thank you for the referral of this patient. Sincerely, Tiana Lara DPT
== END 2019-01-20 17:20 | disposition home or self-care (01) ==
LOC: PT 16:30
PROVIDERS: Family Provider Family Medicine; PCP Family Medicine; Referring Provider Orthopaedic Surgery; Visit Provider Orthopaedic Surgery
DX: Z98.890 Other specified postprocedural states (principal)
CPT/HCPCS: 97110; 97161; 97164

== ENCOUNTER → 2019-04-11 09:22 | Outpatient (CLI) | payer MEDICARE, SELFPAY ==
[2019-04-04 11:37] VITALS: BMI 38.0
== END ==
LOC: PSN 09:24
PROVIDERS: Family Provider Family Medicine; PCP Family Medicine; Referring Provider Physician Assistant Medical; Visit Provider Physician Assistant Medical
DX: I48.91 Unspecified atrial fibrillation (principal)
CPT/HCPCS: 93225; 93226

== ENCOUNTER → 2019-11-30 10:55 | Outpatient (CLI) | payer MEDICARE, SELFPAY ==
[2019-11-30 10:52] VITALS: BMI 38.0
--- NOTE | 2019-11-30 10:56 | RAD_ITS ---
STUDY: X-RAY - LEFT KNEE REASON FOR EXAM: Female, 69 years old. PAIN TECHNIQUE: 4 view(s) of the knee. COMPARISON: None. FINDINGS: Knee prosthesis is noted in anatomic alignment and position. No acute fracture or dislocation. No radiographic evidence for loosening or infection. This may be further assessed with three-phase bone scan if indicated RAD/Knee 4 or More Views IMPRESSION: Stable appearance to knee prosthesis. No acute fracture or other significant bony pathology Electronically Signed: Dixon Avilez MD at 21:25 EDT , Service support ,
== END ==
PROVIDERS: PCP Family Medicine; Referring Provider Orthopaedic Surgery; Visit Provider Orthopaedic Surgery
DX: Z96.659 Presence of unspecified artificial knee joint (principal)
CPT/HCPCS: 73564

== ENCOUNTER 2022-05-03 19:27 | Inpatient (IN) | payer MEDICARE, SELFPAY ==
[2022-05-03 19:28] VITALS: BP 118/60; BP 136/95; PULSE 132; PULSE 144; RESP 18; RESP 28; TEMP 38.5; O2SAT 92; BMI 43.9
[2022-05-03 19:40] VITALS: O2SAT 93
--- NOTE | 2022-05-03 19:43 | EKG12_ITS ---
Test Reason : DYSRYTHMIA Blood Pressure : / mmHG Vent. Rate : 139 BPM Atrial Rate : 000 BPM P-R Int : 000 ms QRS Dur : 088 ms QT Int : 296 ms P-R-T Axes : 000 -49 083 degrees QTc Int : 450 ms Atrial fibrillation with rapid ventricular response Left anterior fascicular block Nonspecific ST abnormality Abnormal ECG Confirmed by MARGE MONCADA, MAURICE ([id number]), story editor JNAEY MILLER ([id number]) on 05/05/2022 1:04:58 PM Referred By: ANASTASIA Confirmed By:MAURICE BIRD MD
--- NOTE | 2022-05-03 20:04 | CT_ITS ---
STUDY: CT BRAIN WITHOUT CONTRAST REASON FOR EXAM: Female, 71 years old. fall on eliquis. Confused RADIATION DOSAGE (If Supplied By Facility): CTDIvol = ( 44.99 ) mGy, DLP = ( 796.11 ) mGycm TECHNIQUE: Transaxial CT imaging of the brain was performed without administration of intravenous contrast material. Individualized dose optimization techniques were used for this CT. COMPARISON: No relevant priors. FINDINGS: Normal soft tissue structures. Normal calvarium. There is mild cerebral atrophy with widening of the extra-axial spaces and ventricular dilatation. Normal white matter tracts of the cerebral hemispheres. There is no intracranial hemorrhage. There are no findings of an acute ischemic infarction. Normal visualized paranasal sinuses. CT/Brain/Head without Contrast IMPRESSION: No acute findings. Chronic involutional changes of the brain. Electronically Signed: Mayra Rodriguez MD at 21:18 EDT Reading Location ID and State: [id number] / Tel , Service support ,
--- NOTE | 2022-05-03 20:08 | EDS_ITS ---
HPI History of Present Illness Chief Complaint: Shortness of Breath Detail of Chief Complaint: Generalized weakness. Fall. A. fib. Informant: patient and spouse/S.O. Onset/Context/Timing Onset: Today Context: Gradual Onset Timing: Continuous Current Severity: Moderate Maximum Severity: Moderate Narrative Narrative: 71-year-old female history of A. fib on Eliquis. According to her and her she been feeling well. He went out to run some errands. When he came home she was on the floor. Patient does not believe she fell. She denies any headache or neck pain. said he got out of bed she seemed little confused and not right. They brought her in the emergency department. She denies any recent illness. She denies any headache, chest pain or injuries.. She denies any abdominal pain. Prior similar symptoms: No Recent Illness/Hospitalization: No [facility], [facility] Medical History (Updated 05/03/22 @ 22:[address] Javed Carlos MD) Acquired hypothyroidism Cystitis Essential (primary) hypertension New onset atrial fibrillation (09/2018) Obesity Osteoarthritis Persistent atrial fibrillation Preop cardiovascular exam Rosacea Home Medications levothyroxine 150 mcg tablet 150 mcg PO DAILY thyroid 10/01/18 [History Last Taken 12/28/18 05:30] multivitamin 1 tab PO DAILY supplement 10/06/18 [History Last Taken Unknown] hydrocodone-acetaminophen 5-325mg 5mg-325mg 1 tab PO Q4H PRN pain #56 tabs 12/27/18 [Rx Last Taken Unknown] lisinopril 20 mg-hydrochlorothiazide 25 mg tablet 1 tab PO DAILY blood pressure #90 tabs 10/10/20 [Rx Last Taken Unknown] metoprolol succinate 50 mg tablet,extended release 24 hr 50 mg PO BID heart #180 tabs 11/18/21 [Rx Last Taken Unknown] apixaban 5 mg tablet (Eliquis) 5 mg PO BID afib #180 tabs 01/07/22 [Rx Last Taken Unknown] Allergy/AdvReac Type Severity Reaction Status Date / Time adhesive tape AdvReac Intermediate Rash Verified 09/25/21 11:23 ibuprofen AdvReac Unknown Verified 09/25/21 11:23 sulfamethoxazole AdvReac Unknown Verified 09/25/21 11:23 [From ] trimethoprim [From ] AdvReac Unknown Verified 09/25/21 11:23 Family History Father Heart disease CVA (cerebral vascular accident) Sister Cancer lung cancer Surgical History History of left knee replacement History of total right hip replacement History of tubal ligation Hx of cholecystectomy Social History Smoking Status: Former smoker quit date: 03/22/90 pack-years: 30 alcohol intake: never substance use type: does not use caffeine: Yes what type of physical activity do you participate in: walking seatbelt use: always do you feel safe at home: Yes additional social history: Gary- both are retired ROS ROS ED ROS Narrative Weakness. Review of Systems ROS Unobtainable: Denies due to encephalopathy Constitutional Constitutional ED: Denies chills or fever(s) Eyes Eyes: Denies blurry vision ENT ENT ED: Denies ear pain Cardiovascular Cardiovascular: Denies chest pain Respiratory/Chest Respiratory/Chest: Denies cough or dyspnea Gastrointestinal Gastrointestinal: Denies abdominal pain Genitourinary Genitourinary ED: Denies dysuria or hematuria Musculoskeletal Musculoskeletal: Denies arthralgias Integumentary Denies abscess Neurologic Neurologic: Denies headache(s) Psychiatric Psychiatric: Denies anxiety Endocrine Endocrinology: Denies cold intolerance Hematologic/Lymphatic Hematologic/Lymphatic: Reports none Allergic/Immunologic Allergic/Immunologic ED: Denies mouth swelling or tongue swelling EXAM Physical Exam Narrative Exam Narrative: 69-year-old female vital signs her temperature is one 1.3. Heart rates 140s in A. fib. Pulse ox 90% room air no hypoxia. She does not look septic or toxic. H EENT exam unremarkable atraumatic. Neck nontender. Lungs clear to auscultation bilaterally. Heart irregular irregular A. fib rate about 145. Chest were nontender. Abdomen soft nontender. Moving all 4 extremities. Nontender no deformity. Hips are nontender. Back nontender. Neurologically she is awake and alert. She knows the date, month, year where she is at. She knows the president night states. She has no focal motor deficits. Const Vital Signs: 05/03/22 19:28 05/03/22 19:28 05/03/22 19:40 Temperature 101.3 F H Temperature Source Oral Pulse Rate 132 H 144 H Respiratory Rate 18 28 H Respiratory Effort Normal Blood Pressure 136/95 H 118/60 Blood Pressure Mean 108 79 Pulse Ox 92 92 Oxygen Delivery Method Room Air Room Air Room Air Oxygen Flow Rate (L/min) 05/03/22 20:50 05/03/22 21:07 Temperature Temperature Source Pulse Rate 104 H 98 Respiratory Rate 18 20 H Respiratory Effort Blood Pressure 87/38 L 82/59 L Blood Pressure Mean 54 66 Pulse Ox 94 96 Oxygen Delivery Method Nasal Cannula Nasal Cannula Oxygen Flow Rate (L/min) 2 2 Positive well nourished, well developed and obese; Negative for cachectic, contractures or unkempt General Appearance ED: well developed and NAD; Negative for unkempt, cachectic, contractures, cyanotic or diaphoretic Nutritional Appearance: obese; Negative for cachectic HEENT Reports moist mucous membranes; Denies dry mucous membranes or other Negative for trauma, tenderness or other Mouth ED: No dry mucous membranes Mouth: No dry mucous membranes Eyes PERRL and EOMs intact bilaterally General Eye ED: Negative for pale conjunctiva or scleral icterus Neck no lymphadenopathy, supple and no JVD Lymph Lymphatic: Negative for other Chest Wall inspection of chest normal and palpation of chest normal Chest: Negative for other Resp normal respiratory effort and clear to auscultation bilaterally Effort and Inspection: Negative for retractions, pain with movement or other Auscultation: Negative for rales, rhonchi or wheezes Cardio S1 normal heart sound, S2 normal heart sound and no murmurs; Negative for regular rate or regular rhythm Rate: tachycardic and other Other Details: A. fib RVR rate around 145. GI normal to inspection, nondistended, normoactive bowel sounds, non-tender, non- distended and no masses Inspection: Negative for abdominal distention Auscultation: normoactive bowel sounds Palpation: soft; Negative for tender or guarding Back/Spine no CVA tenderness General Back: Negative for CVA tenderness Cervical Spine: Negative for cervical spine tenderness Extremity normal to inspection General Extremety ED: Negative for edema or tenderness General Extremity: Negative for edema Neuro oriented x3 Sensorium / Orientation: alert and orientation impaired; Negative for lethargic or stuporous Motor Exam: strength 5/5 throughout Psych mental status grossly normal Appearance: Negative for unkempt Attitude: No agitated Mood & Affect: Negative for depressed, anxious or tearful Skin no rashes or lesions noted and no wounds Rashes: No rashes noted Trauma: Negative for abrasion Wounds: Negative for wounds noted MDM MDM MDM Narrative Medical decision making narrative: 71-year-old female with fever, generalized weakness transient confusion and A. fib RVR. Undergoing work-up. CAT scan of her head. IV fluids. Patient most likely need to be admitted. Will be started on IV Cardizem. Tylenol for fever. Repeat exam patient is resting comfortably at 10:20 PM. Blood pressure is 101/ 60. Heart rates 95-105 remains in A. fib. She and I went over her test results. I will speak to the hospitalist for admission. I do not have a specific source for her fever. Lab Data Attestation: I reviewed the patient's lab results. Lab results narrative: CBC normal white count of 10 H&H of 14.1 and 42. Platelets 300. Lactic acid normal 1.9. Chemistries unremarkable. Sodium 135. Normal BUN and creatinine. Normal gap. BUN and creatinine 18 and 1. Liver enzymes unremarkable. Urinalysis negative. No white or red cells. No nitrates. Chest x-ray unremarkable. Rapid COVID test negative. Troponin normal at 32. Labs: Laboratory Results - last 24 hr 05/03/22 05/03/22 05/03/22 20:10 20:10 20:10 WBC 10.0 RBC 4.31 Hgb 14.1 Hct 42.4 MCV 98.4 MCH 32.7 H MCHC 33.3 RDW Std Deviation 47.9 H RDW Coeff of Jeovanny 13.3 Plt Count 300 MPV 9.6 Immature Gran % (Auto) 0.900 Neut % (Auto) 88.4 H Lymph % (Auto) 5.6 L [place] % (Auto) 4.8 Eos % (Auto) 0.0 Baso % (Auto) 0.3 Absolute Neuts (auto) 8.8 H Absolute Lymphs (auto) 0.56 L Nucleated RBC % 0 Differential Comment SCANNED Sodium Cancelled Potassium Cancelled Chloride Cancelled Carbon Dioxide Cancelled Anion Gap Cancelled BUN Cancelled Creatinine Cancelled Estim Creat Clear Calc Cancelled Est GFR (MDRD) Af Amer Cancelled Est GFR (MDRD) Non-Af Cancelled BUN/Creatinine Ratio Cancelled Glucose Cancelled Lactic Acid 1.9 Calcium Cancelled Total Bilirubin Cancelled AST Cancelled ALT Cancelled Alkaline Phosphatase Cancelled Troponin I High Sens Cancelled Total Protein Cancelled Albumin Cancelled Globulin Cancelled Albumin/Globulin Ratio Cancelled Urine Color Urine Clarity Urine pH Ur Specific [place] Urine Protein Urine Glucose (UA) Urine Ketones Urine Occult Blood Urine Nitrite Urine Bilirubin Urine Urobilinogen Ur Leukocyte Esterase Urine RBC Urine WBC Ur Squamous Epith Cells Urine Bacteria Urine Mucus 05/03/22 05/03/22 20:40 20:45 WBC RBC Hgb Hct MCV MCH MCHC RDW Std Deviation RDW Coeff of Jeovanny Plt Count MPV Immature Gran % (Auto) Neut % (Auto) Lymph % (Auto) [place] % (Auto) Eos % (Auto) Baso % (Auto) Absolute Neuts (auto) Absolute Lymphs (auto) Nucleated RBC % Differential Comment Sodium 135 L Potassium 4.1 Chloride 104 Carbon Dioxide 23.0 Anion Gap 8 BUN 18 Creatinine 1.03 H Estim Creat Clear Calc 39.05 Est GFR (MDRD) Af Amer 68 Est GFR (MDRD) Non-Af 56 L BUN/Creatinine Ratio 17.5 Glucose 122 H Lactic Acid Calcium 8.1 L Total Bilirubin 0.60 AST 52 H ALT 28 Alkaline Phosphatase 67 Troponin I High Sens 32 Total Protein 7.2 Albumin 2.6 L Globulin 4.6 H Albumin/Globulin Ratio 0.6 L Urine Color Yellow Urine Clarity Clear Urine pH 8.0 Ur Specific [place] 1.015 Urine Protein Negative Urine Glucose (UA) Normal Urine Ketones Negative Urine Occult Blood Negative Urine Nitrite Negative Urine Bilirubin Negative Urine Urobilinogen Normal Ur Leukocyte Esterase Negative Urine RBC 0 SEEN Urine WBC 0 SEEN Ur Squamous Epith Cells 0 SEEN Urine Bacteria 0 SEEN Urine Mucus 0 SEEN Radiography Chest X-Ray - ED: 1 View, Read by ED Physician, Heart, Lungs, Mediastinum, Bony Structures, No Acute Disease and Chronic Changes Diagnostic Testing: Clinical Impression(s) from Imaging Studies Brain CT 05/03/22 20:04 IMPRESSION: No acute findings. Chronic involutional changes of the brain. Electronically Signed: Mayra Rodriguez MD at 21:18 EDT Reading Location ID and State: [id number] / Tel , Service support , Chest X-Ray 05/03/22 20:50 IMPRESSION: No radiographic evidence of acute cardiopulmonary disease. Electronically Signed: Mayra Rodriguez MD at 21:21 EDT , Chest x-ray, portable, single view interpreted by myself and radiologist shows no acute process. Chronic changes. No infiltrates. Rhythm Strip Rhythm Strip: A-fib Rate: 139 Ectopy: None EKG Initial EKG: Attestation: I personally reviewed and interpreted this EKG as follows: Interpretation: No Acute Injury Pattern and Atrial Fibrillation Comments: A. fib with rapid ventricular rate of 139. No acute signs of LA or ischemia. Discharge Plan Triage Chief Complaint: Shortness of Breath ED Provider: Javed Carlos Dx/Rx/DC Orders Clinical Impression: Atrial fibrillation with rapid ventricular response, Weakness, Fall, Fever, Chronic anticoagulation Prescriptions: No Action multivitamin tablet 1 tab PO DAILY hydrocodone-acetaminophen 5-325 mg tablet 1 tab PO Q4H PRN (Reason: pain) Qty: 56 0RF Rx Instructions: 1-2 tabs po Q 4hr prn pain lisinopril-hydrochlorothiazide 20-25 mg tablet 1 tab PO DAILY Qty: 90 3RF levothyroxine 150 mcg tablet 150 mcg PO DAILY metoprolol succinate 50 mg tablet extended release 24 hr 50 mg PO BID Qty: 180 3RF Eliquis 5 mg tablet 5 mg PO BID Qty: 180 3RF Primary Care Provider: Bryce Somers Referrals: Bryce Somers DO [Primary Care Provider] - Disposition Disposition: Acute Care Hospital [facility]
[2022-05-03] MEDS: dilTIAZem 25 MG/5 ML Vial IV BOLUS (20:15)
[2022-05-03] MEDS: Acetaminophen 500 MG Tablet 1000 MG PO (20:16)
[2022-05-03] MEDS: 0.9% Normal Saline 1,000 ML 999 ML IV (20:17)
[2022-05-03 20:19] LABS: Absolute Lymphocyte Count 0.56 X10^3/uL (0.83-4.51); Absolute Neutrophil Count 8.8 X10^3/uL (2.0-7.7); Basophil# 0.03 X10^3/uL; Basophil% 0.3 % (0-1); Hematocrit 42.4 % (37-47); Hemoglobin 14.1 g/dL (12.0-15.0); Lymphocyte # 0.56 X10^3/ul (0.83-4.51); Lymphocyte % 5.6 % (19-41); Mean Corp Hgb Conc 33.3 g/dL (32-36); Mean Corpuscular Hgb 32.7 pg (27.0-32.0); Mean Corpuscular Volume 98.4 fL (81-99); Mean Platelet Vol. 9.6 fl (6.2-12.0); Monocyte# 0.48 X10^3/uL; Monocyte% 4.8 % (0-10); NRBC Flagged by Analyzer 0 % (0-5); Neutrophil # 8.79 X10^3/uL (2.7-7.7); Neutrophil % 88.4 % (47-70); POSITIVE DIFFERENTIAL YES; Platelet Count 300 K/mm3 (150-450); RBC Distribution Width CV 13.3 % (11.6-14.6); RBC Distribution Width SD 47.9 fl (35.1-43.9); Red Blood Count 4.31 M/mm3 (4.2-5.4)
[2022-05-03 20:25] LABS: Differential Indicated SCAN CRITERIA MET
[2022-05-03 20:43] LABS: Bacteria 0 SEEN /hpf (None Seen); Mucous, Urine 0 SEEN /hpf (<or=2+); Red Blood Cells-Urine 0 SEEN /hpf (0-5); Squamous Epithelial Cells - UA 0 SEEN /hpf (5-10); White Blood Cells 0 SEEN /hpf (0-5)
[2022-05-03 20:48] LABS: Color, Urine Yellow (Yellow); Glucose, Dipstick Normal (Normal); Ketone-Dipstick Negative (Negative); Leukocyte Esterase-Dipstick Negative /ul (Negative); Nitrite-Dipstick Negative (Negative); Occult Blood-Urine Negative /ul (Negative); Protein-Dipstick Negative (Negative); Specific Gravity, Urine 1.015 (1.002-1.030); Urine Bilirubin Dipstick Negative (Negative); Urine Clarity Clear (Clear); Urine Urobilinogen Normal (Normal)
[2022-05-03 20:50] VITALS: BP 87/38; PULSE 104; RESP 18; O2SAT 94
--- NOTE | 2022-05-03 20:50 | RAD_ITS ---
INDICATION: weakness EXAMINATION/TECHNIQUE: X-RAY - XR Chest 1 View COMPARISON: None. FINDINGS: LINES/DEVICES: None. LUNGS: No consolidation, edema or effusion. No pneumothorax. MEDIASTINUM AND CARDIOVASCULAR STRUCTURES: Cardiac silhouette not enlarged. Central airways and mediastinal contour are unremarkable. BONES AND SOFT TISSUES: Unremarkable. RAD/Chest 1 View (Portable) IMPRESSION: No radiographic evidence of acute cardiopulmonary disease. Electronically Signed: Mayra Rodriguez MD at 21:21 EDT Reading Location ID and State: [id number] / Tel , Service support ,
[2022-05-03 20:53] LABS: Lactic Acid 1.9 mmol/L (0.4-1.9)
[2022-05-03 21:05] LABS: Differential Comment SCANNED
[2022-05-03 21:07] VITALS: BP 82/59; PULSE 98; RESP 20; O2SAT 96
[2022-05-03 21:20] LABS: ALB/GLOB Ratio 0.6 RATIO (0.9-2.4); AST(SGOT) 52 U/L (15-37); Alanine Aminotransfer ALT/SGPT 28 U/L (13-56); Albumin, Serum 2.6 g/dL (3.2-5.0); Alkaline Phosphatase 67 U/L (45-117); Anion Gap 8 (5-15); BUN 18 mg/dL (7-18); BUN/Creat Ratio 17.5 RATIO (10-20); Calcium,Total 8.1 mg/dL (8.5-10.1); Chloride 104 mmol/L (98-107); Creatinine, Serum 1.03 mg/dL (0.55-1.02); EST Glomerular Filtration Rate 56 mL/min (>60); Est Glom Filt Rate - Afr Amer 68 mL/min (>60); Estimated Creatinine Clearance 39.05 ml/min; Globulin 4.6 g/dL (2.2-4.2); Glucose 122 mg/dL (74-106); Potassium 4.1 mmol/L (3.5-5.1); Protein, Total 7.2 g/dL (6.4-8.2); Sodium Level 135 mmol/L (136-145); Troponin-I HS (w/2H Reflex) 32 pg/mL (3.0-54.0)
[2022-05-03 22:20] VITALS: BP 101/52; PULSE 102; RESP 16; TEMP 37; O2SAT 96
[2022-05-03 22:37] VITALS: BP 87/64; PULSE 104; RESP 20; TEMP 37; O2SAT 97
--- NOTE | 2022-05-03 22:39 | ECHOD_ITS ---
Reason For Study: afib Procedure This was a 2D Doppler, Color Flow transthoracic echocardiogram. Exam performed portable in patient room. Left Ventricle Normal LV size. Left ventricular systolic function is normal. The estimated ejection fraction is 60 %. No regional wall motion abnormalities noted. Right Ventricle Normal RV size. Normal systolic function. Atria The left atrium is mildly enlarged. Normal right atrium. Mitral Valve There is mild to moderate mitral annular calcification. Mild (1+) eccentric mitral valve insufficiency. Tricuspid Valve Normal tricuspid valve. Mild tricuspid valve insufficiency. Pulmonary artery systolic pressure is 21 mmHg. Aortic Valve Trisinus/trileaflet aortic valve. Pulmonic Valve Normal pulmonic valve. Great Vessels Normal aortic root. The pulmonary artery is normal size. Normal inferior vena cava. Pericardium/Pleural No pericardial effusion. MMode/2D Measurements & Calculations LVIDd: 4.7 cm IVSd: 0.80 cm Ao root diam: 2.8 cm LVIDs: 4.1 cm LVPWd: 0.88 cm RVDd: 3.1 cm FS: 13.0 % LAV(MOD-bp): 81.9 ml LVAd ap4: 25.3 cm2 SV(MOD-sp4): 47.4 ml LAV(MOD-bp) Indexed: 39.1 ml/m2 LVLd ap4: 7.0 cm LAV(MOD-sp2): 76.2 ml EDV(MOD-sp4): 73.9 ml LAV(MOD-sp4): 79.8 ml EDV(sp4-el): 77.0 ml LVAs ap4: 13.4 cm2 LVLs ap4: 6.2 cm ESV(MOD-sp4): 26.5 ml ESV(sp4-el): 24.5 ml EF(MOD-sp4): 64.1 % EF(sp4-el): 68.2 % SV(sp4-el): 52.5 ml LA A4 area: 25.8 cm2 LA dimension(2D): 4.3 cm RA A4 area: 20.9 cm2 Doppler Measurements & Calculations MV E max kathleen: 98.3 cm/sec MV V2 max: 111.4 cm/sec Ao V2 max: 167.7 cm/sec MV max P.0 mmHg Ao max P.3 mmHg MV V2 mean: 66.0 cm/sec Ao V2 mean: 122.4 cm/sec MV mean P.1 mmHg Ao mean P.7 mmHg MV V2 VTI: 19.9 cm Ao V2 VTI: 31.6 cm LV V1 max: 81.8 cm/sec PA V2 max: 103.2 cm/sec TR max kathleen: 212.1 cm/sec LV V1 max P.7 mmHg PA V2 mean: 72.5 cm/sec TR max P.0 mmHg LV V1 mean P.7 mmHg LV V1 mean: 60.5 cm/sec LV V1 VTI: 15.9 cm ECHO/Echo Complete Interpretation Summary Normal LV size. Left ventricular systolic function is normal. The estimated ejection fraction is 60 %. The left atrium is mildly enlarged. There is mild to moderate mitral annular calcification. Mild (1+) eccentric mitral valve insufficiency. Ordering Physician: Emerita Jarrett Performed By: Diamond Hamilton RCS
--- NOTE | 2022-05-03 22:41 | HP.PCM.HOS_ITS ---
HPI - General General Date of Admission: 05/03/22 Date of Service: 05/03/22 Chief Complaint: Shortness of breath HPI Narrative CONCHIS CHAPPELL, is a 71 F who presented to the emergency department [facility] on 05/03/2022 with shortness of breath. Upon presentation her was present he told the emergency department physician that she had been feeling well. He indicated he went out to run some errands and when he returned she was on the floor. The patient did not believe that she fell but was unable to completely recall the events that occurred. Her indicated that when she got out of bed she seemed confused so he brought her to the emergency department. She denied any recent illnesses and reported that she been feeling well. She denied headache, nasal congestion or drainage, fever or chills, chest pain, abdominal pain, nausea or vomiting, constipation, or tingling numbness or focal weakness. She has had some generalized weakness and is complaining of some left knee pain that has been ongoing for couple months now. She does have that knee replaced previously. Vital signs upon presentation demonstrated a fever of 101.3, heart rate of 132 and the patient was noted to be in A. fib with RVR, blood pressure 136/95 however her blood pressure did drop after she got 25 of Cardizem and she was temporarily hypotensive but responded to some IV fluids. Her oxygen saturation was 92% on room air however she did have some drop in her oxygenation per discussion with the ER physician so she was placed on 2 L nasal cannula. Respiratory rate has been anywhere from 16-28. Her CBC was unremarkable with a normal white count however she does have a left shift with a neutrophilia of 88.4%. Her chemistry panel was overall unimpressive. Her lactic acid was 1.9. Her AST was mildly elevated at 52 however her ALT was normal. Initial troponin was 32. Her UA is unremarkable. Her chest x-ray shows no acute process. Her COVID-19 test was negative. The patient does have a chronic history of atrial fibrillation however she was noted to be in RVR and was given diltiazem 25 mg x 1 some acetaminophen for her fever and a normal saline bolus in the emergency department. Blood cultures were obtained but no empiric antibiotics were started at that time. Request for admission was made given her A. fib with RVR and fever of unknown etiology. [facility], [facility] Medical History (Reviewed 05/04/22 @ 01:[address] Emerita Jarrett DO) Acquired hypothyroidism Chronic anticoagulation Cystitis Essential (primary) hypertension Obesity Osteoarthritis Persistent atrial fibrillation Preop cardiovascular exam Rosacea Home Medications levothyroxine 150 mcg tablet 150 mcg PO DAILY thyroid 10/01/18 [History Last Taken 05/02/22] multivitamin 1 tab PO DAILY supplement 10/06/18 [History Last Taken 05/02/22] hydrocodone-acetaminophen 5-325mg 5mg-325mg 1 tab PO Q4H PRN pain #56 tabs 12/27/18 [Rx Last Taken Unknown] metoprolol succinate 50 mg tablet,extended release 24 hr 50 mg PO BID heart #180 tabs 11/18/21 [Rx Last Taken 05/02/22] apixaban 5 mg tablet (Eliquis) 5 mg PO BID afib #180 tabs 01/07/22 [Rx Last Taken 05/02/22] lisinopril 20 mg-hydrochlorothiazide 25 mg tablet 0.5 tab PO DAILY blood pressure 05/03/22 [History Last Taken 05/02/22] Allergy/AdvReac Type Severity Reaction Status Date / Time adhesive tape AdvReac Intermediate Rash Verified 09/25/21 11:23 ibuprofen AdvReac Unknown Verified 09/25/21 11:23 sulfamethoxazole AdvReac Unknown Verified 09/25/21 11:23 [From Septra] trimethoprim [From Septra] AdvReac Unknown Verified 09/25/21 11:23 Family History (Reviewed 05/04/22 @ 01:[address] Emerita Jarrett DO) Father Heart disease CVA (cerebral vascular accident) Sister Cancer lung cancer Surgical History (Reviewed 05/04/22 @ 01:[address] Emerita Jarrett DO) History of left knee replacement History of total right hip replacement History of tubal ligation Hx of cholecystectomy Social History (Reviewed 05/04/22 @ 01:[address] Emerita Jarrett DO) Smoking Status: Former smoker quit date: 03/22/90 pack-years: 30 alcohol intake: never substance use type: does not use caffeine: Yes what type of physical activity do you participate in: walking seatbelt use: always do you feel safe at home: Yes additional social history: Melvin lee are retired ROS Constitutional Constitutional: Denies anorexia, change in weight, chills, fatigue, fever(s), malaise, night sweats, weakness or other Eyes Eyes: Denies blurry vision, change in eye color, change in vision, discharge from eye(s), double vision, erythema, eye pain, loss of vision or other ENT HEENT: Denies abnormal hearing, dysphagia, ear pain, epistaxis, headache(s), hearing loss, nasal congestion, nasal discharge, post nasal drip, sinus pressure, sore throat or other Cardiovascular Cardiovascular: Reports dyspnea on exertion and rapid heart rate; Denies chest pain, claudication, edema, lightheadedness, orthopnea, palpitations, paroxysmal nocturnal dyspnea, syncope or other Respiratory/Chest Respiratory/Chest: Reports dyspnea, shortness of breath at rest and shortness of breath with exertion; Denies cough, excessive phlegm production, hemoptysis, productive cough, wheezing or other Gastrointestinal Gastrointestinal: Denies abdominal pain, coffee ground emesis, constipation, diarrhea, dyspepsia, hematemesis, hematochezia, loose stools, melena, nausea, vomiting or other Genitourinary Genitourinary: Denies burning urination, difficulty urinating, dysuria, hematuria, nocturia, urinary frequency, urinary hesitancy, urinary incontinence, urinary urgency or other Musculoskeletal Musculoskeletal: Reports joint pain and other Details: Left knee pain Neurologic Neurologic: Reports abnormal gait Psychiatric Psychiatric: Denies anxiety, depression, homicidal ideation, suicidal ideation or other Endocrine Endocrinology: Denies change in body appearance, cold intolerance, excessive sweating, heat intolerance, polydipsia, polyuria or other Hematologic/Lymphatic Hematologic/Lymphatic: Denies anemia, easy bleeding, easy bruising, lymphadenopathy or other Allergic/Immunologic Allergic/Immunologic: Denies rhinitis, hives, eczemia, asthma or other Vital Signs Vital Signs Vital Signs: 05/03/22 19:28 05/03/22 19:28 05/03/22 19:40 Temperature 101.3 F H Temperature Source Oral Pulse Rate 132 H 144 H Respiratory Rate 18 28 H Respiratory Effort Normal Blood Pressure 136/95 H 118/60 Blood Pressure Mean 108 79 Pulse Ox 92 92 Oxygen Delivery Method Room Air Room Air Room Air Oxygen Flow Rate (L/min) 05/03/22 20:50 05/03/22 21:07 05/03/22 22:20 Temperature 98.6 F Temperature Source Oral Pulse Rate 104 H 98 102 H Respiratory Rate 18 20 H 16 Respiratory Effort Blood Pressure 87/38 L 82/59 L 101/52 L Blood Pressure Mean 54 66 68 Pulse Ox 94 96 96 Oxygen Delivery Method Nasal Cannula Nasal Cannula Nasal Cannula Oxygen Flow Rate (L/min) 2 2 2 05/03/22 22:37 Temperature 98.6 F Temperature Source Oral Pulse Rate 104 H Respiratory Rate 20 H Respiratory Effort Blood Pressure 87/64 L Blood Pressure Mean 71 Pulse Ox 97 Oxygen Delivery Method Nasal Cannula Oxygen Flow Rate (L/min) 2 Weight Weight: 108.9 kg Body Mass Index (BMI) 43.9 Physical Exam Const alert, oriented x3, no apparent distress and well nourished Constitutional Narrative: Morbidly obese, white female, older, sitting up in bed, appears comfortable and nontoxic General Appearance: cooperative HEENT normocephalic, head/scalp atraumatic, hearing grossly normal bilaterally and moist oral mucous membranes HEENT Narrative: Dentition is poor, Mallampati is 2-3, no thrush Eyes PERRL, EOMs intact bilaterally and conjunctivae normal Eyes Narrative: No scleral icterus Neck no lymphadenopathy, supple, no JVD and no carotid bruits Neck Narrative: Trachea midline, no thyroid enlargement Resp normal respiratory effort, no retractions, no use of accessory muscles and clear to auscultation bilaterally Auscultation: Negative for crackles, rales, rhonchi or wheezes Cardio S1 normal heart sound, S2 normal heart sound, no murmurs, no rub, no gallops and no clicks Cardio Narrative: Irregular irregular rhythm with rate between 101 10 GI normal to inspection, nondistended, normoactive bowel sounds, soft to palpation and non-tender Extremity no clubbing, cyanosis or edema Extremity Narrative: 2+ pedal pulses Skin Skin Narrative: Increased tissue temperature over left knee with pain on palpation, no significant effusion appreciated on exam, pain with passive range of motion Neuro oriented x3, CN's II-XII intact bilaterally, moves all extremities and no focal motor deficits Neuro Narrative: Generalized weakness Speech: speech normal Psych affect normal Psych Narrative: Very pleasant and appropriately interactive Results Lab / Micro Data Attestation: I reviewed the patient's lab results. Result Diagrams: 05/03/22 20:10 05/03/22 20:45 Labs: Laboratory Results - last 24 hr 05/03/22 20:10: WBC 10.0, RBC 4.31, Hgb 14.1, Hct 42.4, MCV 98.4, MCH 32.7 H, MCHC 33.3, RDW Std Deviation 47.9 H, RDW Coeff of Jeovanny 13.3, Plt Count 300, MPV 9.6, Immature Gran % (Auto) 0.900, Neut % (Auto) 88.4 H, Lymph % (Auto) 5.6 L, [place] % (Auto) 4.8, Eos % (Auto) 0.0, Baso % (Auto) 0.3, Absolute Neuts (auto) 8.8 H, Absolute Lymphs (auto) 0.56 L, Nucleated RBC % 0, Differential Comment SCANNED 05/03/22 20:10: Sodium Cancelled, Potassium Cancelled, Chloride Cancelled, Carbon Dioxide Cancelled, Anion Gap Cancelled, BUN Cancelled, Creatinine Cancelled, Estim Creat Clear Calc Cancelled, Est GFR (MDRD) Af Amer Cancelled, Est GFR (MDRD) Non-Af Cancelled, BUN/Creatinine Ratio Cancelled, Glucose Ca ncelled, Calcium Cancelled, Total Bilirubin Cancelled, AST Cancelled, ALT Cancelled, Alkaline Phosphatase Cancelled, Troponin I High Sens Cancelled, Total Protein Cancelled, Albumin Cancelled, Globulin Cancelled, Albumin/Globulin Ratio Cancelled 05/03/22 20:10: Lactic Acid 1.9 05/03/22 20:40: Urine Color Yellow, Urine Clarity Clear, Urine pH 8.0, Ur Sp ecific [place] 1.015, Urine Protein Negative, Urine Glucose (UA) Normal, Urine Ketones Negative, Urine Occult Blood Negative, Urine Nitrite Negative, Urine Bilirubin Negative, Urine Urobilinogen Normal, Ur Leukocyte Esterase Negative, Urine RBC 0 SEEN, Urine WBC 0 SEEN, Ur Squamous Epith Cells 0 SEEN, Urine Bacteria 0 SEEN, Urine Mucus 0 SEEN 05/03/22 20:45: Sodium 135 L, Potassium 4.1, Chloride 104, Carbon Dioxide 23.0, Anion Gap 8, BUN 18, Creatinine 1.03 H, Estim Creat Clear Calc 39.05, Est GFR (MDRD) Af Amer 68, Est GFR (MDRD) Non-Af 56 L, BUN/Creatinine Ratio 17.5, Glucose 122 H, Calcium 8.1 L, Total Bilirubin 0.60, AST 52 H, ALT 28, Alkaline Phosphatase 67, Troponin I High Sens 32, Total Protein 7.2, Albumin 2.6 L, Globulin 4.6 H, Albumin/Globulin Ratio 0.6 L Micro: Microbiology 05/03/22 20:10 Nasal Secretion SARS-CoV-2 Antigen (Rapid) - Final Rhythm Strip Rhythm Strip: A-fib Rate: 139 Ectopy: None Radiology Impression Brain CT 05/03/22 20:04 IMPRESSION: No acute findings. Chronic involutional changes of the brain. Electronically Signed: Mayra Rodriguez MD at 21:18 EDT Reading Location ID and State: [place] / Tel , Service support , Chest X-Ray 05/03/22 20:50 IMPRESSION: No radiographic evidence of acute cardiopulmonary disease. Electronically Signed: Mayra Rodriguez MD at 21:21 EDT Reading Location ID and State: [place] Pacheco MD Tel , Service support , Assessment & Plan Assessment/Plan (1) Atrial fibrillation with rapid ventricular response: (2) Fever: (3) Fall: (4) Weakness: (5) Left knee pain: PLAN: Plan Fever -Etiology unclear -Chest x-ray is unremarkable -UA is not suggestive of infection -Blood cultures are pending -Respiratory viral panel pending -X-ray of her knee is unremarkable -Check procalcitonin -Check ESR and CRP -Start broad-spectrum antibiotics with vancomycin and Zosyn given etiology of fever is unclear -If above work-up is unremarkable may want to consider MRI/CT of left knee to rule out septic joint -Fever did come down nicely with acetaminophen A. fib with RVR -Patient with persistent atrial fibrillation at baseline -Continue home oral -Continue home apixaban -Patient was given Cardizem 25x1 dose the emergency department--> this did result in some temporary hypotension -Check TSH -Last echo in 2019 therefore we will repeat echocardiogram -Cycle cardiac enzymes Left knee pain -X-ray overtly unremarkable -If etiology of fever is not clear with work-up could consider advanced imaging -Patient did have left knee replacement remotely -Patient was placed on broad-spectrum antibiotics on admission given her fever Generalized weakness/fall -PT/OT consultation Hypothyroidism -Continue home levothyroxine Hypertension -Continue home metoprolol -Hold home lisinopril/hydrochlorothiazide given soft blood pressure after Cardizem -May be able to restart lisinopril/hydrochlorothiazide tomorrow depending on blood pressures -As needed hydralazine available for systolic pressure greater than 160 Morbid obesity -Recommend weight loss -Complicates treatment, prognosis, outcomes -BMI 41.5 DVT prophylaxis -Apixaban CODE STATUS -Full code Charges/Coding Visit Charges Inpatient E&M: 70748 Init Hosp L3
[2022-05-03 22:56] LABS: Reflex Troponin-HS? (from REC) Y
--- NOTE | 2022-05-03 23:25 | RAD_ITS ---
INDICATION: pain EXAMINATION/TECHNIQUE: X-RAY - LEFT XR Knee 3 Views 3 VIEWS COMPARISON: 11/30/2019 FINDINGS: SOFT TISSUES: No soft tissue swelling or gas. No radiopaque foreign body. BONES/JOINTS: No acute fracture. Stable appearance of the knee prosthesis without pathologic lucency. Degenerative changes of the patellofemoral joint.. No sclerotic or destructive changes observed. RAD/Knee 3 Views IMPRESSION: Status post left knee replacement with stable degenerative changes. No acute bony abnormality. Electronically Signed: Michael Hurst MD at 1:02 EDT ,
[2022-05-03 23:50] VITALS: BMI 41.5
[2022-05-04] VITALS (15 sets, daily range): BP systolic 108–137; BP diastolic 69–98; PULSE 87–102; RESP 18–20; TEMP 35.9–37.2; O2SAT 95–98
[2022-05-04] LABS: Troponin-I HS 41 pg/mL (3.0-54.0)
[2022-05-04] MEDS: 0.9% Saline Lock 10 ML Syringe IV ×3 (01:20→13:53)
[2022-05-04 02:48] LABS: Procalcitonin 0.56 ng/mL (0.00-0.09)
[2022-05-04 02:57] LABS: Erythrocyte Sedimentation Rate 67 mm/hr (0-30)
[2022-05-04 03:11] LABS: Troponin-I HS 38 pg/mL (3.0-54.0)
--- NOTE | 2022-05-04 03:57 | PCM.RX.CS ---
Consult Pharmacy has been consulted to manage selected antiobiotic: Vancomycin Type of Consult: New start Labs: Sodium 135 mmol/L (136-145) L 05/03/22 20:45 Potassium 4.1 mmol/L (3.5-5.1) 05/03/22 20:45 Chloride 104 mmol/L (98-107) 05/03/22 20:45 Carbon Dioxide 23.0 mmol/L (21.0-32.0) 05/03/22 20:45 Anion Gap 8 (5-15) 05/03/22 20:45 BUN 18 mg/dL (7-18) 05/03/22 20:45 Creatinine 1.03 mg/dL (0.55-1.02) H 05/03/22 20:45 Est GFR (MDRD) Af Amer 68 mL/min (>60) 05/03/22 20:45 Est GFR (MDRD) Non-Af 56 mL/min (>60) L 05/03/22 20:45 BUN/Creatinine Ratio 17.5 RATIO (10-20) 05/03/22 20:45 Glucose 122 mg/dL (74-106) H 05/03/22 20:45 Microbiology: Microbiology 05/03/22 20:10 Nasal Secretion SARS-CoV-2 Antigen (Rapid) - Final Goal Trough: 15-20 mcg/mL Pharmacy Plan for Drug Dosing: Pharmacy Service will continue to monitor and adjust dosing as required. Medications Vancomycin HCl (Vancomycin) 1,000 mg in 200 mls @ 200 mls/hr IV Q12H CAIT Discontinued Medications Vancomycin HCl 2,000 mg/ (Sodium Chloride) 540 mls @ 250 mls/hr IV X1 ONE Stop: 05/04/22 02:39 Last Admin: 05/04/22 03:43 Dose: Infused Follow-Up Labs: Trough Vancomycin Labs to be done on [date and time ordered]: 05/05 @ 1230
[2022-05-04] MEDS: Levothyroxine 150 MCG Tablet PO (05:37)
--- NOTE | 2022-05-04 07:45 | PCM.PN.HOSP ---
Subjective Subjective Follow-up for fever, A. fib with RVR Objective Data Objective Data Vital Signs: Vital Signs Temp Pulse Resp BP Pulse Ox O2 Del Method O2 Flow Rate 97.9 F 92 20 H 124/69 H 97 Room Air 2 05/04/22 05:36 05/04/22 06:43 05/04/22 05:36 05/04/22 05:36 05/04/22 05:36 05/04/22 05:36 05/03/22 22:37 Oxygen Flow Rate (L/min) 2 Oxygen Delivery Method Room Air Weight: 234 lb 5.622 oz Body Mass Index (BMI) 41.5 Intake & Output: Intake and Output for Last 24 Hours 05/02/22 05/03/22 05/04/22 23:59 23:59 22:59 Intake Total 1000 / 1000 830 / 830 Balance 1000 / 1000 830 / 830 Lab / Micro Data Result Diagrams: 05/04/22 01:55 EST 05/04/22 08:40 Labs: Laboratory Results - last 24 hr 05/03/22 20:10: WBC 10.0, RBC 4.31, Hgb 14.1, Hct 42.4, MCV 98.4, MCH 32.7 H, MCHC 33.3, RDW Std Deviation 47.9 H, RDW Coeff of Jeovanny 13.3, Plt Count 300, MPV 9.6, Immature Gran % (Auto) 0.900, Neut % (Auto) 88.4 H, Lymph % (Auto) 5.6 L, [place] % (Auto) 4.8, Eos % (Auto) 0.0, Baso % (Auto) 0.3, Absolute Neuts (auto) 8.8 H, Absolute Lymphs (auto) 0.56 L, Nucleated RBC % 0, Differential Comment SCANNED 05/03/22 20:10: Sodium Cancelled, Potassium Cancelled, Chloride Cancelled, Carbon Dioxide Cancelled, Anion Gap Cancelled, BUN Cancelled, Creatinine Cancelled, Estim Creat Clear Calc Cancelled, Est GFR (MDRD) Af Amer Cancelled, Est GFR (MDRD) Non-Af Cancelled, BUN/Creatinine Ratio Cancelled, Glucose Cancelled, Calcium Cancelled, Total Bilirubin Cancelled, AST Cancelled, ALT Cancelled, Alkaline Phosphatase Cancelled, Troponin I High Sens Cancelled, Total Protein Cancelled, Albumin Cancelled, Globulin Cancelled, Albumin/Globulin Ratio Cancelled 05/03/22 20:10: Lactic Acid 1.9 05/03/22 20:40: Urine Color Yellow, Urine Clarity Clear, Urine pH 8.0, Ur Specific [place] 1.015, Urine Protein Negative, Urine Glucose (UA) Normal, Urine Ketones Negative, Urine Occult Blood Negative, Urine Nitrite Negative, Urine Bilirubin Negative, Urine Urobilinogen Normal, Ur Leukocyte Esterase Negative, Urine RBC 0 SEEN, Urine WBC 0 SEEN, Ur Squamous Epith Cells 0 SEEN, Urine Bacteria 0 SEEN, Urine Mucus 0 SEEN 05/03/22 20:45: Sodium 135 L, Potassium 4.1, Chloride 104, Carbon Dioxide 23.0, Anion Gap 8, BUN 18, Creatinine 1.03 H, Estim Creat Clear Calc 39.05, Est GFR (MDRD) Af Amer 68, Est GFR (MDRD) Non-Af 56 L, BUN/Creatinine Ratio 17.5, Glucose 122 H, Calcium 8.1 L, Total Bilirubin 0.60, AST 52 H, ALT 28, Alkaline Phosphatase 67, Troponin I High Sens 32, Total Protein 7.2, Albumin 2.6 L, Globulin 4.6 H, Albumin/Globulin Ratio 0.6 L 05/03/22 23:35: Troponin I High Sens 41 05/04/22 01:55 EST: Troponin I High Sens 38, C-React Prot Ext Range 14.20 H 05/04/22 01:55 EST: ESR 67 H 05/04/22 01:55 EST: Procalcitonin 0.56 H Micro: Microbiology 05/03/22 20:10 Nasal Secretion SARS-CoV-2 Antigen (Rapid) - Final Radiography Diagnostic Testing: Radiology Impression Brain CT 05/03/22 20:04 IMPRESSION: No acute findings. Chronic involutional changes of the brain. Electronically Signed: Mayra Rodriguez MD at 21:18 EDT Reading Location ID and State: [id number] / Tel , Service support , Chest X-Ray 05/03/22 20:50 IMPRESSION: No radiographic evidence of acute cardiopulmonary disease. Electronically Signed: Mayra Rodriguez MD at 21:21 EDT , Knee X-Ray 05/03/22 23:25 IMPRESSION: Status post left knee replacement with stable degenerative changes. No acute bony abnormality. Electronically Signed: Michael Hurst MD at 1:02 EDT , Rhythm Strip Rhythm Strip: A-fib Rate: 139 Ectopy: None Physical Exam Narrative Patient admitted with shortness of breath, not feeling well and fever. She also has left knee pain, swelling and warmth for 2 to 3 weeks. She states he slept from the bed and on the floor but denies any major impact or injury. She had left TKR in 2019. T-max in ED 101.3 Fahrenheit Physical exam General: Alert, Oriented x3, Cooperative HEENT: Atraumatic, PERRLA, EOMI, Normocephalic Oral: No Gingival or Mucosal Lesions/ Ulcerations Neck: Supple, No JVD, Negative Carotid Bruits Lungs: Air entry diminished in bilateral lung bases. No crepitation/rhonchi Cardiovascular: Irregular rate and rhythm, A. fib in 90s, Normal S1, Normal S2, No murmurs Abdomen: Bowel Sounds Present, Soft, Non Tender, Non-Distended : No renal angle tenderness. No suprapubic tenderness. Extremities: No edema, Capillary Refill Less than 3 Seconds Skin: No rashes, No breakdown Musculoskeletal: Left knee status post TKR, mild warmth, tenderness. No appreciable swelling compared to right. Right knee degenerative arthritis Neurological: Cranial nerves II-XII grossly intact, DTR 2+/4 and Symmetrical, Neuro grossly intact Psych/Mental Status: Normal Affect, Appropriate. Assessment & Plan Assessment/Plan (1) Atrial fibrillation with rapid ventricular response: (2) Fever: (3) Fall: (4) Weakness: (5) Left knee pain: PLAN: Plan This is an 7-year-old female was admitted for shortness of breath, A. fib with RVR not feeling good for about 1 week and 2 to 3 weeks of left knee pain, warmth generalized weakness and fever: 1. Fever, exact etiology unclear, rule out left PJI: Patient is being admitted in PCU. I called orthopedic surgeon Dr. Westfall and requested to see patient to rule out PUI. Left knee x-ray reports prosthesis in alignment position with no acute bony abnormality. Patient is on broad-spectrum IV antibiotic vancomycin and Zosyn. ESR and CRP are elevated. Procalcitonin 0.56.Rapid SARS-CoV-2 antigen negative.Blood culture and respiratory panel pending. Continue broad-spectrum antibiotic IV vancomycin and Zosyn. Lactic acid normal. Chest x-ray does not show acute abnormality. UA WBC 0, 0 bacteria. Patient does not have acute dysuria/lower urinary tract symptoms. 2. A. fib with RVR: Heart rate is controlled in 90s. Patient is on apixaban. Cardizem 25 IV bolus was given in ED which helped to transient hypotension but patient BP recovered. TSH 39.8. Free T4 ordered. Patient on levothyroxine 150 mg daily increased to 175 mcg daily. Serial troponins negative. ACS ruled -Last echo in 2018, repeat echo ordered. Last echo in 08/2018 reported EF 60% with severely dilated LA. Stress test in 2019 was negative for ischemia. 3. Generalized weakness/fall -PT/OT consultation 4. Hypothyroidism: Levothyroxine dose increased as TSH is high. Rest as mentioned above Hypertension -Continue home metoprolol -Hold home lisinopril/hydrochlorothiazide given transient low blood pressure after Cardizem. Blood pressure is still systolic 119 therefore continue holding it - Morbid obesity -Recommend weight loss -Complicates treatment, prognosis, outcomes -BMI 41.5 DVT prophylaxis -Apixaban CODE STATUS -Full code Total time of the visit including total time spent in counseling or coordination of care, (more than 50% of the total time, spent in obtaining medical information from nurses and other ancillary care providers,explaining to the patient about labs, imaging, diagnosis and management of active complex medical conditions), discussion with orthopedic surgeon, review of labs and imaging is 40 minutes. Clinical Impression(s) from Imaging Studies Brain CT 05/03/22 20:04 IMPRESSION: No acute findings. Chronic involutional changes of the brain. Electronically Signed: Mayra Rodriguez MD at 21:18 EDT Reading Location ID and State: [id number] / Tel , Service support , Chest X-Ray 05/03/22 20:50 IMPRESSION: No radiographic evidence of acute cardiopulmonary disease. Electronically Signed: Mayra Rodriguez MD at 21:21 EDT Reading Location ID and State: [place] / Tel , Service support , Knee X-Ray 05/03/22 23:25 IMPRESSION: Status post left knee replacement with stable degenerative changes. No acute bony abnormality. Microbiology Past 72 Hours 05/03/22 20:10 Nasal Secretion SARS-CoV-2 Antigen (Rapid) - Final Laboratory Results 05/03/22 20:10: WBC 10.0, RBC 4.31, Hgb 14.1, Hct 42.4, MCV 98.4, MCH 32.7 H, MCHC 33.3, RDW Std Deviation 47.9 H, RDW Coeff of Jeovanny 13.3, Plt Count 300, MPV 9.6, Immature Gran % (Auto) 0.900, Neut % (Auto) 88.4 H, Lymph % (Auto) 5.6 L, [place] % (Auto) 4.8, Eos % (Auto) 0.0, Baso % (Auto) 0.3, Absolute Neuts (auto) 8.8 H, Absolute Lymphs (auto) 0.56 L, Nucleated RBC % 0, Differential Comment SCANNED 05/03/22 20:10: Lactic Acid 1.9 05/03/22 20:40: Urine Color Yellow, Urine Clarity Clear, Urine pH 8.0, Ur Specific [place] 1.015, Urine Protein Negative, Urine Glucose (UA) Normal, Urine Ketones Negative, Urine Occult Blood Negative, Urine Nitrite Negative, Urine Bilirubin Negative, Urine Urobilinogen Normal, Ur Leukocyte Esterase Negative, Urine RBC 0 SEEN, Urine WBC 0 SEEN, Ur Squamous Epith Cells 0 SEEN, Urine Bacteria 0 SEEN, Urine Mucus 0 SEEN 05/03/22 20:45: Sodium 135 L, Potassium 4.1, Chloride 104, Carbon Dioxide 23.0, Anion Gap 8, BUN 18, Creatinine 1.03 H, Estim Creat Clear Calc 39.05, Est GFR (MDRD) Af Amer 68, Est GFR (MDRD) Non-Af 56 L, BUN/Creatinine Ratio 17.5, Glucose 122 H, Calcium 8.1 L, Total Bilirubin 0.60, AST 52 H, ALT 28, Alkaline Phosphatase 67, Troponin I High Sens 32, Total Protein 7.2, Albumin 2.6 L, Globulin 4.6 H, Albumin/Globulin Ratio 0.6 L 05/03/22 23:35: Troponin I High Sens 41 05/04/22 01:55 EST: WBC 9.7, RBC 4.32, Hgb 14.2, Hct 42.6, MCV 98.6, MCH 32.9 H, MCHC 33.3, RDW Std Deviation 48.8 H, RDW Coeff of Jeovanny 13.3, Plt Count 307, MPV 10.2, Immature Gran % (Auto) 0.800, Neut % (Auto) 88.7 H, Lymph % (Auto) 5.8 L, [place] % (Auto) 4.2, Eos % (Auto) 0.1, Baso % (Auto) 0.4, Absolute Neuts (auto) 8.6 H, Absolute Lymphs (auto) 0.56 L, Nucleated RBC % 0, Differential Comment SCANNED 05/04/22 01:55 EST: Troponin I High Sens 38, C-React Prot Ext Range 14.20 H 05/04/22 01:55 EST: ESR 67 H 05/04/22 01:55 EST: Procalcitonin 0.56 H 05/04/22 08:40: Sodium 139, Potassium 3.4 L, Chloride 104, Carbon Dioxide 26.0, Anion Gap 9, BUN 14, Creatinine 0.86, Estim Creat Clear Calc 48.91, Est GFR (MDRD) Af Amer 83, Est GFR (MDRD) Non-Af 68, BUN/Creatinine Ratio 16.2, Glucose 101, Calcium 7.9 L, Phosphorus 2.2 L, Magnesium 2.1, Total Bilirubin 0.60, AST 84 H, ALT 37, Alkaline Phosphatase 66, Total Protein 6.8, Albumin 2.6 L, Globulin 4.2, Albumin/Globulin Ratio 0.6 L, TSH 39.80 H Charges/Coding Visit Charges Inpatient E&M: 81813 Subs Hosp L3
[2022-05-04 07:46] LABS: Absolute Lymphocyte Count 0.56 X10^3/uL (0.83-4.51); Absolute Neutrophil Count 8.6 X10^3/uL (2.0-7.7); Basophil# 0.04 X10^3/uL; Basophil% 0.4 % (0-1); Eosinophil# 0.01 X10^3/uL; Eosinophils% 0.1 % (0-5); Hematocrit 42.6 % (37-47); Hemoglobin 14.2 g/dL (12.0-15.0); Lymphocyte # 0.56 X10^3/ul (0.83-4.51); Lymphocyte % 5.8 % (19-41); Mean Corp Hgb Conc 33.3 g/dL (32-36); Mean Corpuscular Hgb 32.9 pg (27.0-32.0); Mean Corpuscular Volume 98.6 fL (81-99); Mean Platelet Vol. 10.2 fl (6.2-12.0); Monocyte# 0.41 X10^3/uL; Monocyte% 4.2 % (0-10); NRBC Flagged by Analyzer 0 % (0-5); Neutrophil # 8.61 X10^3/uL (2.7-7.7); Neutrophil % 88.7 % (47-70); POSITIVE DIFFERENTIAL YES; Platelet Count 307 K/mm3 (150-450); RBC Distribution Width CV 13.3 % (11.6-14.6); RBC Distribution Width SD 48.8 fl (35.1-43.9); Red Blood Count 4.32 M/mm3 (4.2-5.4); White Blood Count 9.7 K/mm3 (4.4-11.0)
[2022-05-04 07:51] LABS: Differential Indicated SCAN CRITERIA MET
[2022-05-04] MEDS: APIXABAN 5 MG TABLET PO ×2 (08:27→21:58)
[2022-05-04] MEDS: Multivitamins,Therapeutic Tablet 1 TABLET PO (08:27)
[2022-05-04] MEDS: Metoprolol(XL)Succ 50 MG Tablet PO ×2 (08:27→21:58)
[2022-05-04 09:16] LABS: Differential Comment SCANNED
[2022-05-04 09:23] LABS: ALB/GLOB Ratio 0.6 RATIO (0.9-2.4); AST(SGOT) 84 U/L (15-37); Alanine Aminotransfer ALT/SGPT 37 U/L (13-56); Albumin, Serum 2.6 g/dL (3.2-5.0); Alkaline Phosphatase 66 U/L (45-117); Anion Gap 9 (5-15); BUN 14 mg/dL (7-18); BUN/Creat Ratio 16.2 RATIO (10-20); Calcium,Total 7.9 mg/dL (8.5-10.1); Chloride 104 mmol/L (98-107); Creatinine, Serum 0.86 mg/dL (0.55-1.02); EST Glomerular Filtration Rate 68 mL/min (>60); Est Glom Filt Rate - Afr Amer 83 mL/min (>60); Estimated Creatinine Clearance 48.91 ml/min; Globulin 4.2 g/dL (2.2-4.2); Glucose 101 mg/dL (74-106); Magnesium 2.1 mg/dL (1.6-2.6); Phosphorus 2.2 mg/dL (2.5-4.9); Potassium 3.4 mmol/L (3.5-5.1); Protein, Total 6.8 g/dL (6.4-8.2); Sodium Level 139 mmol/L (136-145)
[2022-05-04] MEDS: Vancomycin IV 1,000 MG/200 ML BAG 200 MG IV (12:28)
--- NOTE | 2022-05-04 15:10 | CON.PCM.OR_ITS ---
HPI Consult Data Date of Consult: 05/04/22 HPI Narrative HPI Narrative: CONCHIS CHAPPELL, is a 71 F who is being consulted on today regarding left knee pain and concern for possible joint infection. She had a left knee TKA DOS: 11/16/2018 and a left knee manipulation under anaesthesia, DOS: 12/28/2018. Patient presented to the ED 05/03/2022 due to shortness of breath and confusion. She denies any recent illnesses and per the patient and her they state that over the last few months she has been well without any significant health concerns. However, they state that for at least 2 weeks, if not 3, her left knee has become painful especially with ambulation and stairs. She even made an appointment for 05/05/22 to follow up with Dr. Westfall regarding her concerns about new onset swelling, pain and warmth of her left knee. Before this, her left TKA had been without any issues or concerns. However, she was admitted to [facility] 05/04/2022 for atrial fibrillation with RVR and fever of unknown etiology. No history of gout. [facility] Medical History (Reviewed 05/04/22 @ 01:[address] Emerita Jarrett DO) Acquired hypothyroidism Chronic anticoagulation Cystitis Essential (primary) hypertension Obesity Osteoarthritis Persistent atrial fibrillation Preop cardiovascular exam Rosacea Home Medications levothyroxine 150 mcg tablet 150 mcg PO DAILY thyroid 10/01/18 [History Last Taken 05/02/22] multivitamin 1 tab PO DAILY supplement 10/06/18 [History Last Taken 05/02/22] hydrocodone-acetaminophen 5-325mg 5mg-325mg 1 tab PO Q4H PRN pain #56 tabs 12/27/18 [Rx Last Taken Unknown] metoprolol succinate 50 mg tablet,extended release 24 hr 50 mg PO BID heart #180 tabs 11/18/21 [Rx Last Taken 05/02/22] apixaban 5 mg tablet (Eliquis) 5 mg PO BID afib #180 tabs 01/07/22 [Rx Last Taken 05/02/22] lisinopril 20 mg-hydrochlorothiazide 25 mg tablet 0.5 tab PO DAILY blood pressure 05/03/22 [History Last Taken 05/02/22] Allergy/AdvReac Type Severity Reaction Status Date / Time adhesive tape AdvReac Intermediate Rash Verified 09/25/21 11:23 ibuprofen AdvReac Unknown Verified 09/25/21 11:23 sulfamethoxazole AdvReac Unknown Verified 09/25/21 11:23 [From Febra] trimethoprim [From ] AdvReac Unknown Verified 09/25/21 11:23 Family History (Reviewed 05/04/22 @ 01:[address] Emerita Jarrett DO) Father Heart disease CVA (cerebral vascular accident) Sister Cancer lung cancer Surgical History (Reviewed 05/04/22 @ 01:[address] Emerita Jarrett DO) History of left knee replacement History of total right hip replacement History of tubal ligation Hx of cholecystectomy Social History (Reviewed 05/04/22 @ 01:[address] Emerita Jarrett DO) Smoking Status: Former smoker quit date: 03/22/90 pack-years: 30 alcohol intake: never substance use type: does not use caffeine: Yes what type of physical activity do you participate in: walking seatbelt use: always do you feel safe at home: Yes additional social history: Gary- both are retired ROS Gastrointestinal Gastrointestinal: Denies nausea or vomiting Musculoskeletal Musculoskeletal: Reports arthralgias, difficulty walking, joint pain, joint stiffness, joint swelling, limited range of motion and stiffness Integumentary Integumentary: Denies rash Neurologic Neurologic: Denies abnormal speech, confusion or headache(s) Vital Signs Vital Signs Vital Signs: 05/03/22 19:28 05/03/22 19:28 05/03/22 19:40 Temperature 101.3 F H Temperature Source Oral Pulse Rate 132 H 144 H Pulse Strength Respiratory Rate 18 28 H Respiratory Effort Normal Respiratory Depth Respiratory Pattern Blood Pressure 136/95 H 118/60 Blood Pressure Mean 108 79 Blood Pressure Source Blood Pressure Position Blood Pressure Location Pulse Ox 92 92 Oxygen Delivery Method Room Air Room Air Room Air Oxygen Flow Rate (L/min) 05/03/22 20:50 05/03/22 21:07 05/03/22 22:20 Temperature 98.6 F Temperature Source Oral Pulse Rate 104 H 98 102 H Pulse Strength Respiratory Rate 18 20 H 16 Respiratory Effort Respiratory Depth Respiratory Pattern Blood Pressure 87/38 L 82/59 L 101/52 L Blood Pressure Mean 54 66 68 Blood Pressure Source Blood Pressure Position Blood Pressure Location Pulse Ox 94 96 96 Oxygen Delivery Method Nasal Cannula Nasal Cannula Nasal Cannula Oxygen Flow Rate (L/min) 2 2 2 05/03/22 22:37 05/04/22 00:03 05/04/22 01:25 EDT Temperature 98.6 F 96.6 F L Temperature Source Oral Temporal Pulse Rate 104 H 92 87 Pulse Strength Respiratory Rate 20 H 20 H Respiratory Effort Respiratory Depth Respiratory Pattern Blood Pressure 87/64 L 108/69 Blood Pressure Mean 71 82 Blood Pressure Source Monitor Blood Pressure Position Semi-Fowlers Blood Pressure Location Right Arm Pulse Ox 97 97 Oxygen Delivery Method Nasal Cannula Room Air Oxygen Flow Rate (L/min) 2 05/04/22 03:08 05/04/22 05:34 05/04/22 05:36 Temperature 97.9 F 97.9 F Temperature Source Oral Oral Pulse Rate 97 92 92 Pulse Strength Respiratory Rate 20 H 20 H Respiratory Effort Respiratory Depth Respiratory Pattern Blood Pressure 124/69 H 124/69 H Blood Pressure Mean 87 87 Blood Pressure Source Monitor Blood Pressure Position Semi-Fowlers Blood Pressure Location Right Forearm Pulse Ox 97 97 Oxygen Delivery Method Room Air Room Air Oxygen Flow Rate (L/min) 05/04/22 06:43 05/04/22 07:44 05/04/22 08:27 Temperature Temperature Source Pulse Rate 92 98 Pulse Strength Respiratory Rate Respiratory Effort Respiratory Depth Respiratory Pattern Blood Pressure 117/81 H Blood Pressure Mean Blood Pressure Source Blood Pressure Position Blood Pressure Location Pulse Ox 96 Oxygen Delivery Method Room Air Oxygen Flow Rate (L/min) 05/04/22 08:25 05/04/22 08:43 05/04/22 11:30 Temperature 97.9 F Temperature Source Oral Pulse Rate 99 Pulse Strength Normal (2+) Respiratory Rate 18 Respiratory Effort Normal Non-Labored Respiratory Depth Normal Respiratory Pattern Normal Blood Pressure 119/81 H Blood Pressure Mean 93 Blood Pressure Source Monitor Blood Pressure Position Semi-Fowlers Blood Pressure Location Right Forearm Pulse Ox 95 Oxygen Delivery Method Room Air Room Air Oxygen Flow Rate (L/min) 05/04/22 11:30 05/04/22 14:00 Temperature 97.9 F Temperature Source Oral Pulse Rate 99 Pulse Strength Respiratory Rate 18 Respiratory Effort Normal Non-Labored Respiratory Depth Normal Respiratory Pattern Normal Blood Pressure 119/81 H Blood Pressure Mean 93 Blood Pressure Source Blood Pressure Position Blood Pressure Location Pulse Ox 95 Oxygen Delivery Method Room Air Room Air Oxygen Flow Rate (L/min) 2 Weight Weight: 234 lb 5.622 oz Body Mass Index (BMI) 41.5 Physical Exam Const alert, oriented x3 and no apparent distress General Appearance: cooperative Orientation / Consciousness: Negative for confused Extremity Extremity Narrative: Upon inspection of the left lower extremity there is no evident ecchymosis, erythema or open wounds. The incision site is healed. Some minor swelling noted compared to her right knee. Able to fully extend left knee without any pain. Difficultly bilaterally flexing her knees due to her position in bed and pain. Both knees are painful in flexion. Soft compartments. Negative Homans. Intact sensation to light touch throughout left lower extremity. Palpable pedal pulses. Able to plantarflex and dorsiflex. No hypersensitivity to light touch. No obvious palpable defect of the left quadriceps. Lab / Micro Data Result Diagrams: 05/04/22 01:55 EST 05/04/22 08:40 Labs: Laboratory Results - last 24 hr 05/03/22 20:10: WBC 10.0, RBC 4.31, Hgb 14.1, Hct 42.4, MCV 98.4, MCH 32.7 H, MCHC 33.3, RDW Std Deviation 47.9 H, RDW Coeff of Jeovanny 13.3, Plt Count 300, MPV 9.6, Immature Gran % (Auto) 0.900, Neut % (Auto) 88.4 H, Lymph % (Auto) 5.6 L, M lisa % (Auto) 4.8, Eos % (Auto) 0.0, Baso % (Auto) 0.3, Absolute Neuts (auto) 8.8 H, Absolute Lymphs (auto) 0.56 L, Nucleated RBC % 0, Differential Comment SCANNED 05/03/22 20:10: Sodium Cancelled, Potassium Cancelled, Chloride Cancelled, Carbon Dioxide Cancelled, Anion Gap Cancelled, BUN Cancelled, Creatinine Cancelled, Estim Creat Clear Calc Cancelled, Est GFR (MDRD) Af Amer Cancelled, Est GFR (MDRD) Non-Af Cancelled, BUN/Creatinine Ratio Cancelled, Glucose Cancelled, Calcium Cancelled, Total Bilirubin Cancelled, AST Cancelled, ALT Cancelled, Alkaline Phosphatase Cancelled, Troponin I High Sens Cancelled, Total Protein Cancelled, Albumin Cancelled, Globulin Cancelled, Albumin/Globulin Ratio Cancelled 05/03/22 20:10: Lactic Acid 1.9 05/03/22 20:40: Urine Color Yellow, Urine Clarity Clear, Urine pH 8.0, Ur Specific [place] 1.015, Urine Protein Negative, Urine Glucose (UA) Normal, Urine Ketones Negative, Urine Occult Blood Negative, Urine Nitrite Negative, Urine Bilirubin Negative, Urine Urobilinogen Normal, Ur Leukocyte Esterase Negative, Urine RBC 0 SEEN, Urine WBC 0 SEEN, Ur Squamous Epith Cells 0 SEEN, Urine Bacteria 0 SEEN, Urine Mucus 0 SEEN 05/03/22 20:45: Sodium 135 L, Potassium 4.1, Chloride 104, Carbon Dioxide 23.0, Anion Gap 8, BUN 18, Creatinine 1.03 H, Estim Creat Clear Calc 39.05, Est GFR (MDRD) Af Amer 68, Est GFR (MDRD) Non-Af 56 L, BUN/Creatinine Ratio 17.5, Glucose 122 H, Calcium 8.1 L, Total Bilirubin 0.60, AST 52 H, ALT 28, Alkaline Phosphatase 67, Troponin I High Sens 32, Total Protein 7.2, Albumin 2.6 L, Globulin 4.6 H, Albumin/Globulin Ratio 0.6 L 05/03/22 23:35: Troponin I High Sens 41 05/04/22 01:55 EST: WBC 9.7, RBC 4.32, Hgb 14.2, Hct 42.6, MCV 98.6, MCH 32.9 H, MCHC 33.3, RDW Std Deviation 48.8 H, RDW Coeff of [place]ovanny 13.3, Plt Count 307, MPV 10.2, Immature Gran % (Auto) 0.800, Neut % (Auto) 88.7 H, Lymph % (Auto) 5.8 L, [place] % (Auto) 4.2, Eos % (Auto) 0.1, Baso % (Auto) 0.4, Absolute Neuts (auto) 8.6 H, Absolute Lymphs (auto) 0.56 L, Nucleated RBC % 0, Differential Comment SCANNED 05/04/22 01:55 EST: Sodium Cancelled, Potassium Cancelled, Chloride Cancelled, Carbon Dioxide Cancelled, Anion Gap Cancelled, BUN Cancelled, Creatinine Cancelled, Estim Creat Clear Calc Cancelled, Est GFR (MDRD) Af Amer Cancelled, Est GFR (MDRD) Non-Af Cancelled, BUN/Creatinine Ratio Cancelled, Glucose Cance lled, Calcium Cancelled, Phosphorus Cancelled, Magnesium Cancelled, Total Bilirubin Cancelled, AST Cancelled, ALT Cancelled, Alkaline Phosphatase Cancelled, Total Protein Cancelled, Albumin Cancelled, Globulin Cancelled, Albumin/Globulin Ratio Cancelled, TSH Cancelled 05/04/22 01:55 EST: Troponin I High Sens 38, C-React Prot Ext Range 14.20 H 05/04/22 01:55 EST: ESR 67 H 05/04/22 01:55 EST: Procalcitonin 0.56 H 05/04/22 08:40: Sodium 139, Potassium 3.4 L, Chloride 104, Carbon Dioxide 26.0, Anion Gap 9, BUN 14, Creatinine 0.86, Estim Creat Clear Calc 48.91, Est GFR (MDRD) Af Amer 83, Est GFR (MDRD) Non-Af 68, BUN/Creatinine Ratio 16.2, Glucose 101, Calcium 7.9 L, Phosphorus 2.2 L, Magnesium 2.1, Total Bilirubin 0.60, AST 84 H, ALT 37, Alkaline Phosphatase 66, Total Protein 6.8, Albumin 2.6 L, Globulin 4.2, Albumin/Globulin Ratio 0.6 L, TSH 39.80 H Micro: Microbiology 05/03/22 20:10 Nasal Secretion SARS-CoV-2 Antigen (Rapid) - Final Rhythm Strip Rhythm Strip: A-fib Rate: 139 Ectopy: None Radiology Impression Brain CT 05/03/22 20:04 IMPRESSION: No acute findings. Chronic involutional changes of the brain. Electronically Signed: Mayra Rodriguez MD at 21:18 EDT Reading Location ID and State: [place] MD Tel , Service support , Chest X-Ray 05/03/22 20:50 IMPRESSION: No radiographic evidence of acute cardiopulmonary disease. Electronically Signed: Mayra Rodriguez MD at 21:21 EDT Reading Location ID and State: [place] MD Tel , Service support , Knee X-Ray 05/03/22 23:25 IMPRESSION: Status post left knee replacement with stable degenerative changes. No acute bony abnormality. Electronically Signed: Michael Hurst MD at 1:02 EDT , Assessment & Plan Assessment/Plan (1) Left knee pain: (2) S/P total knee arthroplasty: (3) Fever: PLAN: Plan Patient was consulted on for concerns regarding left knee pain, swelling and fever with unknown etiology. She has a history of left TKA, DOS:11/16/2018. Reviewed x-rays of the left knee that were taken on 05/03/22 and these revealed no acute abnormalities. Reviewed recent labs. Significant findings - ESR 67mm/hr, CRP 14.2 mg/L, procalcitonin 0.56 ng/mL. She is afebrile currently, T max 101.3. Currently on broad spectrum IV antibiotics vancomycin and Zosyn. Discussed the case with Dr. Westfall. He will preform a joint aspiration tomorrow morning and the joint fluid will be sent for analysis. Will order a uric acid as well. Will follow up with the results from these tests and discuss further plans. The patient and her husbands questions were answered. They are in agreement with the plan.
[2022-05-04 17:06] LABS: Uric Acid 4.3 mg/dL (2.6-6.0)
[2022-05-04 17:10] LABS: Probe Check PASS; Specimen Processing Control PASS
[2022-05-05] VITALS (16 sets, daily range): BP systolic 112–142; BP diastolic 75–86; PULSE 88–100; RESP 16–20; TEMP 36–36.9; O2SAT 94–98
[2022-05-05] MEDS: Vancomycin IV 1,000 MG/200 ML BAG 200 MG IV ×2 (01:03→12:32)
[2022-05-05] MEDS: Levothyroxine 175 MCG Tablet PO (05:12)
[2022-05-05 07:03] LABS: Absolute Neutrophil Count 5.7 X10^3/uL (2.0-7.7); Basophil# 0.04 X10^3/uL; Basophil% 0.4 % (0-1); Eosinophil# 0.16 X10^3/uL; Eosinophils% 1.8 % (0-5); Hematocrit 38.1 % (37-47); Hemoglobin 12.9 g/dL (12.0-15.0); Lymphocyte % 21.1 % (19-41); Mean Corp Hgb Conc 33.9 g/dL (32-36); Mean Corpuscular Hgb 33.4 pg (27.0-32.0); Mean Corpuscular Volume 98.7 fL (81-99); Mean Platelet Vol. 9.6 fl (6.2-12.0); Monocyte# 1.16 X10^3/uL; Monocyte% 12.9 % (0-10); NRBC Flagged by Analyzer 0 % (0-5); Neutrophil # 5.71 X10^3/uL (2.7-7.7); Neutrophil % 63.2 % (47-70); Platelet Count 249 K/mm3 (150-450); RBC Distribution Width CV 13.6 % (11.6-14.6); RBC Distribution Width SD 49.6 fl (35.1-43.9); Red Blood Count 3.86 M/mm3 (4.2-5.4)
[2022-05-05 07:39] LABS: Anion Gap 5 (5-15); BUN 15 mg/dL (7-18); BUN/Creat Ratio 18.3 RATIO (10-20); Calcium,Total 8.4 mg/dL (8.5-10.1); Chloride 106 mmol/L (98-107); Creatinine, Serum 0.82 mg/dL (0.55-1.02); EST Glomerular Filtration Rate 73 mL/min (>60); Est Glom Filt Rate - Afr Amer 88 mL/min (>60); Glucose 103 mg/dL (74-106); Potassium 3.5 mmol/L (3.5-5.1); Sodium Level 135 mmol/L (136-145); T4 Free Direct 0.37 ng/dL (0.76-1.46)
--- NOTE | 2022-05-05 08:37 | PN.ORTHO_ITS ---
Subjective Subjective And seen and examined and reviewed consultation from my PA yesterday and agree. In regards to her left knee she has had about 2 weeks of pain although she states since being admitted to the hospital her pain is resolved. Concern was from standpoint that she had elevated ESR CRP fever with her admission A. fib with RVR with history of knee pain wanting to rule out infection. She did have stiffness postoperatively and did require manipulation her stiffness and range of motion has not changed acutely. She denies calf pain or radicular symptoms. No fevers or chills reported by patient currently, or prior to admission but did have elevated temperature in the hospital, no white count. Objective Data Objective Data Vital Signs: Vital Signs Temp Pulse Resp BP Pulse Ox O2 Del Method O2 Flow Rate 96.8 F L 98 16 112/78 94 Room Air 2 05/05/22 08:14 05/05/22 08:14 05/05/22 08:14 05/05/22 08:14 05/05/22 08:14 05/05/22 08:14 05/04/22 17:30 Oxygen Flow Rate (L/min) 2 Oxygen Delivery Method Room Air Weight: 234 lb 5.622 oz Body Mass Index (BMI) 41.5 Intake & Output: Intake and Output for Last 24 Hours 05/04/22 05/04/22 05/05/22 00:59 23:59 23:59 Intake Total 490 / 490 Output Total 450 / 450 Balance 40 / 40 Lab / Micro Data Result Diagrams: 05/05/22 06:15 05/05/22 06:15 Labs: Laboratory Results - last 24 hr 05/04/22 01:55 EST: Differential Comment SCANNED 05/04/22 08:40: Sodium 139, Potassium 3.4 L, Chloride 104, Carbon Dioxide 26.0, Anion Gap 9, BUN 14, Creatinine 0.86, Estim Creat Clear Calc 48.91, Est GFR (MDRD) Af Amer 83, Est GFR (MDRD) Non-Af 68, BUN/Creatinine Ratio 16.2, Glucose 101, Calcium 7.9 L, Phosphorus 2.2 L, Magnesium 2.1, Total Bilirubin 0.60, AST 84 H, ALT 37, Alkaline Phosphatase 66, Total Protein 6.8, Albumin 2.6 L, Globulin 4.2, Albumin/Globulin Ratio 0.6 L, TSH 39.80 H 05/04/22 08:40: Uric Acid 4.3 05/04/22 14:55: COVID-19 (JENNY) Negative 05/05/22 06:15: Sodium 135 L, Potassium 3.5, Chloride 106, Carbon Dioxide 24.0, Anion Gap 5, BUN 15, Creatinine 0.82, Estim Creat Clear Calc 51.30, Est GFR (MDRD) Af Amer 88, Est GFR (MDRD) Non-Af 73, BUN/Creatinine Ratio 18.3, Glucose 103, Calcium 8.4 L, Free T4 0.37 L 05/05/22 06:15: WBC 9.0, RBC 3.86 L, Hgb 12.9, Hct 38.1, MCV 98.7, MCH 33.4 H, MCHC 33.9, RDW Std Deviation 49.6 H, RDW Coeff of Jeovanny 13.6, Plt Count 249, MPV 9.6, Immature Gran % (Auto) 0.600, Neut % (Auto) 63.2, Lymph % (Auto) 21.1, [place] % (Auto) 12.9 H, Eos % (Auto) 1.8, Baso % (Auto) 0.4, Absolute Neuts (auto) 5.7, Absolute Lymphs (auto) 1.90, Nucleated RBC % 0 Micro: Microbiology 05/03/22 20:10 Nasal Secretion SARS-CoV-2 Antigen (Rapid) - Final Rhythm Strip Rhythm Strip: A-fib Rate: 139 Ectopy: None Physical Exam Const alert, oriented x3 and no apparent distress Extremity Extremity Narrative: Patient is obese bilateral lower extremity swelling no erythema around the knee she does have varicosities. Very faint if any joint effusion on examination. Intact extensor mechanism no collateral instability 0 to 75 degrees of flexion without pain. Negative Homans. Assessment & Plan Assessment/Plan (1) S/P total knee arthroplasty: (2) Left knee pain: (3) Atrial fibrillation with rapid ventricular response: PLAN: Plan Discussed with patient concern since we do not have a focus for reason for fever and elevated inflammatory markers with 2-week of left knee pain although resolved now, would like to confirm no periprosthetic joint infection left knee patient agrees and obtained verbal consent. Patient's left knee was prepped with alcohol and Betadine and using a standard superior lateral approach an 18- gauge needle was used to aspirate 9 cc of cloudy synovial fluid had more of an inflammatory appearance than an infectious appearance possibly resembling gout, and only 9 cc would expect more with periprosthetic joint infection, sent for stat synovial fluid analysis we will also check uric acid level crystals culture and recommendations to follow.
[2022-05-05 08:41] LABS: Synovial Fld Mononuclear WBC # 3.245 10^3/ul; Synovial Fld Mononuclear WBC % 9.9 %; Synovial Fld Polynuclear WBC % 90.1 %
[2022-05-05 08:45] LABS: RBC /Synovial Fluid 0.008 10^6/uL (0)
[2022-05-05 08:45] LABS: Uric Acid 3.2 mg/dL (2.6-6.0)
[2022-05-05 08:50] LABS: AUTO B FLUID DILUENT BKGD CT WBC <0.1 RBC <0.01 (W<.1,R<.01); Source- Body Fluid SYNOVIAL
[2022-05-05 08:51] LABS: Appearance /Synovial Fluid Turbid (CLEAR); Color / Synovial Fluid Yellow (Pale Yellow); Source / Synovial Fluid LFT KNEE; Viscosity / Synovial Fluid Mod. Viscous (HIGH)
[2022-05-05] MEDS: Metoprolol(XL)Succ 50 MG Tablet PO ×2 (09:33→21:19)
[2022-05-05] MEDS: Multivitamins,Therapeutic Tablet 1 TABLET PO (09:34)
[2022-05-05] MEDS: APIXABAN 5 MG TABLET PO (09:34)
[2022-05-05 10:46] LABS: Lymph 5 %; Monocyte /Synovial Fluid 8 %; Neutrophil 87 % (0-25)
[2022-05-05 10:49] LABS: Body Fluid QC Type(s) BF1Q,BF2Q
[2022-05-05 13:02] LABS: Pathologist Comment Reviewed
[2022-05-05 13:11] LABS: Vancomycin, Trough Level 12.5 ug/mL (5.0-15.0)
--- NOTE | 2022-05-05 13:37 | CASEMGMT ---
Attempts x2 to see pt without success as has had pt care both times. CM to attempt again later. SStshiela RN CM
--- NOTE | 2022-05-05 13:53 | PCM.RX.CS ---
Consult Pharmacy has been consulted to manage selected antiobiotic: Vancomycin Type of Consult: Follow-up Labs: Sodium 135 mmol/L (136-145) L 05/05/22 06:15 Potassium 3.5 mmol/L (3.5-5.1) 05/05/22 06:15 Chloride 106 mmol/L (98-107) 05/05/22 06:15 Carbon Dioxide 24.0 mmol/L (21.0-32.0) 05/05/22 06:15 Anion Gap 5 (5-15) 05/05/22 06:15 BUN 15 mg/dL (7-18) 05/05/22 06:15 Creatinine 0.82 mg/dL (0.55-1.02) 05/05/22 06:15 Est GFR (MDRD) Af Amer 88 mL/min (>60) 05/05/22 06:15 Est GFR (MDRD) Non-Af 73 mL/min (>60) 05/05/22 06:15 BUN/Creatinine Ratio 18.3 RATIO (10-20) 05/05/22 06:15 Glucose 103 mg/dL (74-106) 05/05/22 06:15 Vancomycin Trough 12.5 ug/mL (5.0-15.0) 05/05/22 12:30 Microbiology: Microbiology 05/05/22 07:20 Fluid - Synovial (joint) Gram Stain - Final 05/03/22 20:10 Nasal Secretion SARS-CoV-2 Antigen (Rapid) - Final Goal Trough: 15-20 mcg/mL Pharmacy Plan for Drug Dosing: VANCOMYCIN LEVEL RECEIVED Current Vancomycin Dose: 1000mg q12h (,) Number of Doses Received: Vancomycin Level: 12.5 Hours Since Last Dose: 11.5 Renal Function: SrCr 0.82 Renal Function Trend: SrCr improving (was 1.03) Lab/Micro: pending Vancomycin Plan/Comments: resulted trough of 12.5 is below the ordered goal trough range of 15-20. recommend increased Vancomycin dose from 1000mg q12h to 1250mg q12h starting 05/06/22 at 0100. trough before the 4th dose Pending Level: 05/07/22 at 1230 Pharmacy Service will continue to monitor and adjust dosing as required. Follow-Up Labs: Trough Vancomycin - 05/07/22 at 1230
--- NOTE | 2022-05-05 14:16 | PCM.CONS.GEN ---
Assessment & Plan Assessment/Plan (1) S/P total knee arthroplasty: (2) Left knee pain: PLAN: Aspiration with elevated wbc, poly predominant. Ortho following. Cxs and crystal study pending. On empiric vanc/zosyn. Will follow, thank you (3) Fever: HPI Consult Data Date of Consult: 05/05/22 HPI Narrative Reason for Consultation: knee pain HPI Narrative: CONCHIS CHAPPELL, is a 71 F who presented 05/03 with sudden onset fatigue, encephalopathy, L knee pain with prior replacement. was gone short period of time and found her on floor. L knee with swelling, redness, tenderness; worse with movement. No fever or chills. No h/o gout. Admitted on vanc/zosyn, feeling a little better. Aspiration done today. Full ROS performed and neg except as noted above. [facility] Medical History Acquired hypothyroidism Chronic anticoagulation Cystitis Essential (primary) hypertension Obesity Osteoarthritis Persistent atrial fibrillation Preop cardiovascular exam Rosacea Home Medications levothyroxine 150 mcg tablet 150 mcg PO DAILY thyroid 10/01/18 [History Last Taken 05/02/22] multivitamin 1 tab PO DAILY supplement 10/06/18 [History Last Taken 05/02/22] hydrocodone-acetaminophen 5-325mg 5mg-325mg 1 tab PO Q4H PRN pain #56 tabs 12/27/18 [Rx Last Taken Unknown] metoprolol succinate 50 mg tablet,extended release 24 hr 50 mg PO BID heart #180 tabs 11/18/21 [Rx Last Taken 05/02/22] apixaban 5 mg tablet (Eliquis) 5 mg PO BID afib #180 tabs 01/07/22 [Rx Last Taken 05/02/22] lisinopril 20 mg-hydrochlorothiazide 25 mg tablet 0.5 tab PO DAILY blood pressure 05/03/22 [History Last Taken 05/02/22] Allergy/AdvReac Type Severity Reaction Status Date / Time adhesive tape AdvReac Intermediate Rash Verified 09/25/21 11:23 ibuprofen AdvReac Unknown Verified 09/25/21 11:23 sulfamethoxazole AdvReac Unknown Verified 09/25/21 11:23 [From ] trimethoprim [From ] AdvReac Unknown Verified 09/25/21 11:23 Family History (Reviewed 05/04/22 @ 01:[address] Emerita Jarrett DO) Father Heart disease CVA (cerebral vascular accident) Sister Cancer lung cancer Surgical History (Reviewed 05/04/22 @ 01:[address] Emerita Jarrett DO) History of left knee replacement History of total right hip replacement History of tubal ligation Hx of cholecystectomy Social History (Reviewed 05/04/22 @ 01:[address] Emerita Jarrett DO) Smoking Status: Former smoker quit date: 03/22/90 pack-years: 30 alcohol intake: never substance use type: does not use caffeine: Yes what type of physical activity do you participate in: walking seatbelt use: always do you feel safe at home: Yes additional social history: Gary- both are retired Physical Exam Const alert, oriented x3 and no apparent distress General Appearance: cooperative HEENT normocephalic and head/scalp atraumatic Eyes PERRL and EOMs intact bilaterally Neck supple and No nodes Resp normal air movement and clear to auscultation bilaterally Cardio Negative for regular rhythm Rate: tachycardic GI soft to palpation, non-tender and non-distended Extremity General Extremity: edema Skin Skin Narrative: L knee with swelling, warmth, soreness Neuro CN's II-XII intact bilaterally Lab / Micro Data Attestation: I reviewed the patient's lab results. Result Diagrams: 05/05/22 06:15 05/05/22 06:15 Labs: Laboratory Results - last 24 hr 05/04/22 08:40: Uric Acid 4.3 05/04/22 14:55: COVID-19 (JENNY) Negative 05/05/22 06:15: Sodium 135 L, Potassium 3.5, Chloride 106, Carbon Dioxide 24.0, Anion Gap 5, BUN 15, Creatinine 0.82, Estim Creat Clear Calc 51.30, Est GFR (MDRD) Af Amer 88, Est GFR (MDRD) Non-Af 73, BUN/Creatinine Ratio 18.3, Glucose 103, Calcium 8.4 L, Free T4 0.37 L 05/05/22 06:15: WBC 9.0, RBC 3.86 L, Hgb 12.9, Hct 38.1, MCV 98.7, MCH 33.4 H, MCHC 33.9, RDW Std Deviation 49.6 H, RDW Coeff of Jeovanny 13.6, Plt Count 249, MPV 9.6, Immature Gran % (Auto) 0.600, Neut % (Auto) 63.2, Lymph % (Auto) 21.1, [place] % (Auto) 12.9 H, Eos % (Auto) 1.8, Baso % (Auto) 0.4, Absolute Neuts (auto) 5.7, Absolute Lymphs (auto) 1.90, Nucleated RBC % 0 05/05/22 06:15: Uric Acid 3.2 05/05/22 07:20: Fluid Crystals SEE PATH REV, Fluid Crystal Source SYNOVIAL, Synovial Source LFT KNEE, Synovial Color Yellow, Synovial Appearance Turbid, Synovial Viscosity Mod. Viscous, Synovial WBC 33.7830 H, Synovial RBC 0.008 H, Synovial Tot Cell Ct 34.0500 H, Synov Polynuclear WBCs 29.500, Synov Mononuclear WBCs 3.245, Synovial Neutrophils 87 H, Synovial Lymphocytes 5, Synovial Monocytes 8, Synovial Polynuclear % 90.1, Synovial Mononuclear % 9.9, Synovial Path Comment Reviewed 05/05/22 12:30: Vancomycin Trough 12.5 Micro: Microbiology 05/05/22 07:20 Fluid - Synovial (joint) Gram Stain - Final Rhythm Strip Rhythm Strip: A-fib Rate: 139 Ectopy: None Radiology Impression Echocardiogram 05/03/22 22:39 Interpretation Summary Normal LV size. Left ventricular systolic function is normal. The estimated ejection fraction is 60 %. The left atrium is mildly enlarged. There is mild to moderate mitral annular calcification. Mild (1+) eccentric mitral valve insufficiency. Ordering Physician: Emerita Jarrett Performed By: Diamond Hamilton RCS
--- NOTE | 2022-05-05 15:15 | PCM.PN.ORT ---
Subjective Subjective Return to discuss aspiration results with patient and . Significantly elevated WBC count 33,000 and setting of a elevated ESR CRP indicative of infection. Antibiotics started prior to consultation and aspiration, no organisms on Gram stains yet to grow. No crystals identified uric acid within normal limits further points to periprosthetic joint infection. considering symptoms have been only present for 2 weeks discussed proceeding with open irrigation debridement and polyethylene exchange with IV antibiotics in attempt to eradicate infection, thorough discussion was had including risk of continued infection despite this. alternatively hardware removal and antibiotic spacers would be an option but considering this being caught early on washout and polyexchange is an option which they wish to proceed with. Ricardo Hunt , plan for surgery 05/07/2022 continue antibiotics. Objective Data Objective Data Vital Signs: Vital Signs Temp Pulse Resp BP Pulse Ox O2 Del Method O2 Flow Rate 96.8 F L 95 16 125/75 H 98 Room Air 2 05/05/22 14:56 05/05/22 15:02 05/05/22 14:56 05/05/22 14:56 05/05/22 14:56 05/05/22 14:56 05/05/22 14:56 Oxygen Flow Rate (L/min) 2 Oxygen Delivery Method Room Air Weight: 234 lb 5.622 oz Body Mass Index (BMI) 41.5 Intake & Output: Intake and Output for Last 24 Hours 05/04/22 05/04/22 05/05/22 00:59 23:59 23:59 Intake Total 740 / 740 Output Total 450 / 450 Balance 290 / 290 Lab / Micro Data Result Diagrams: 05/05/22 06:15 05/05/22 06:15 Labs: Laboratory Results - last 24 hr 05/04/22 08:40: Uric Acid 4.3 05/04/22 14:55: COVID-19 (JENNY) Negative 05/05/22 06:15: Sodium 135 L, Potassium 3.5, Chloride 106, Carbon Dioxide 24.0, Anion Gap 5, BUN 15, Creatinine 0.82, Estim Creat Clear Calc 51.30, Est GFR (MDRD) Af Amer 88, Est GFR (MDRD) Non-Af 73, BUN/Creatinine Ratio 18.3, Glucose 103, Calcium 8.4 L, Free T4 0.37 L 05/05/22 06:15: WBC 9.0, RBC 3.86 L, Hgb 12.9, Hct 38.1, MCV 98.7, MCH 33.4 H, MCHC 33.9, RDW Std Deviation 49.6 H, RDW Coeff of Jeovanny 13.6, Plt Count 249, MPV 9.6, Immature Gran % (Auto) 0.600, Neut % (Auto) 63.2, Lymph % (Auto) 21.1, Josephine % (Auto) 12.9 H, Eos % (Auto) 1.8, Baso % (Auto) 0.4, Absolute Neuts (auto) 5.7, Absolute Lymphs (auto) 1.90, Nucleated RBC % 0 05/05/22 06:15: Uric Acid 3.2 05/05/22 07:20: Fluid Crystals SEE PATH REV, Fluid Crystal Source SYNOVIAL, Synovial Source LFT KNEE, Synovial Color Yellow, Synovial Appearance Turbid, Synovial Viscosity Mod. Viscous, Synovial WBC 33.7830 H, Synovial RBC 0.008 H, Synovial Tot Cell Ct 34.0500 H, Synov Polynuclear WBCs 29.500, Synov Mononuclear WBCs 3.245, Synovial Neutrophils 87 H, Synovial Lymphocytes 5, Synovial Monocytes 8, Synovial Polynuclear % 90.1, Synovial Mononuclear % 9.9, Synovial Path Comment Reviewed 05/05/22 12:30: Vancomycin Trough 12.5 Micro: Microbiology 05/05/22 07:20 Fluid - Synovial (joint) Gram Stain - Final 05/03/22 20:10 Nasal Secretion SARS-CoV-2 Antigen (Rapid) - Final Radiography Diagnostic Testing: Radiology Impression Echocardiogram 05/03/22 22:39 Interpretation Summary Normal LV size. Left ventricular systolic function is normal. The estimated ejection fraction is 60 %. The left atrium is mildly enlarged. There is mild to moderate mitral annular calcification. Mild (1+) eccentric mitral valve insufficiency. Ordering Physician: Emerita Jarrett Performed By: Diamond Hamilton RCS Rhythm Strip Rhythm Strip: A-fib Rate: 139 Ectopy: None
--- NOTE | 2022-05-05 15:25 | CASEMGMT ---
NEHEMIAS CROFT assessment: Face to Face with patient for initial transition planning/care coordination assessment. RN LANG introduced self and role at [facility], pt voices understanding and consents to assessment. Pt is sitting up in bed in no distress on room air. Pt is A/Ox4 and answers all questions appropriately.? Care providers, pharmacy,?and demographics verified. ? Presentation: Pt c/o SOB, not feeling well Admitting dx: Fever, Afib RVR PCP: Yonis Specialists: Khoi, ortho; Claudia, cardio; Luis Carlos uro Preferred Pharmacy: [facility] [place] Insurance: [facility] Prescription Benefit:?Yes Living Will/HPOA: Pt has LW/HPOA and is aware that they are not on file at [facility]. Pt states her , Gary Michelle, is HPOA. LNOK: Gary Michelle, /HPOA; León Michelle, son Living Arrangements: Pt lives with in 1 story home with laundry in basement and states no concerns at home. Pt is independent with ADL's. Transportation: Pt drives self and states no transportation concerns. DME/HHC: Pt has a WW and Shower chair and states no need for any further DME. Pt states has had [facility] s/p knee replacement and has been to [facility] and [place] for rehab in the past. Pt states no concerns with going home at time of discharge. Pt is retired. Pt does not smoke cigarettes or drink ETOH. Pt voices no further concerns/needs. Pt is scheduled to have surgery w/ Dr. Westfall on 05/07/22 for open irrigation debridement and polyethylene exchange with IV antibiotics in attempt to eradicate infection. CM to follow for therapy and ID recommendations for d/c and any further discharge planning/needs. Advised pt to ask for CM if any further questions/concerns/needs arise, voices understanding. ? Pt Goal: Home Plan: TBD, pending clinical course. SStaten NEHEMIAS CROFT
--- NOTE | 2022-05-05 20:27 | PCM.PN.HOSP ---
Subjective Subjective Patient was seen and examined today, I talked with orthopedic surgery about her care, orthopedic surgery is concerned the patient has a left knee periprosthetic infection, the plan is for the patient undergo removal of her left knee hardware on Thursday. Patient is currently on Eliquis which was stopped today. Also talked with infectious diseases about her care and had them see her in consultation. I explained to the patient and her that she would be undergoing surgery on Thursday and that orthopedic surgery will talk with her further today. Objective Data Objective Data Vital Signs: Vital Signs Temp Pulse Resp BP Pulse Ox O2 Del Method O2 Flow Rate 96.8 F L 88 16 125/75 H 98 Room Air 2 05/05/22 14:56 05/05/22 19:56 05/05/22 14:56 05/05/22 14:56 05/05/22 14:56 05/05/22 14:56 05/05/22 14:56 Oxygen Flow Rate (L/min) 2 Oxygen Delivery Method Room Air Weight: 106.3 kg Body Mass Index (BMI) 41.5 Intake & Output: Intake and Output for Last 24 Hours 05/04/22 05/04/22 05/05/22 00:59 23:59 23:59 Intake Total 790 / 790 Output Total 450 / 450 Balance 340 / 340 Lab / Micro Data Result Diagrams: 05/06/22 06:30 05/06/22 06:30 Labs: Laboratory Results - last 24 hr 05/05/22 06:15: Sodium 135 L, Potassium 3.5, Chloride 106, Carbon Dioxide 24.0, Anion Gap 5, BUN 15, Creatinine 0.82, Estim Creat Clear Calc 51.30, Est GFR (MDRD) Af Amer 88, Est GFR (MDRD) Non-Af 73, BUN/Creatinine Ratio 18.3, Glucose 103, Calcium 8.4 L, Free T4 0.37 L 05/05/22 06:15: WBC 9.0, RBC 3.86 L, Hgb 12.9, Hct 38.1, MCV 98.7, MCH 33.4 H, MCHC 33.9, RDW Std Deviation 49.6 H, RDW Coeff of Jeovanny 13.6, Plt Count 249, MPV 9.6, Immature Gran % (Auto) 0.600, Neut % (Auto) 63.2, Lymph % (Auto) 21.1, [place] % (Auto) 12.9 H, Eos % (Auto) 1.8, Baso % (Auto) 0.4, Absolute Neuts (auto) 5.7, Absolute Lymphs (auto) 1.90, Nucleated RBC % 0 05/05/22 06:15: Uric Acid 3.2 05/05/22 07:20: Fluid Crystals SEE PATH REV, Fluid Crystal Source SYNOVIAL, Synovial Source LFT KNEE, Synovial Color Yellow, Synovial Appearance Turbid, Synovial Viscosity Mod. Viscous, Synovial WBC 33.7830 H, Synovial RBC 0.008 H, Synovial Tot Cell Ct 34.0500 H, Synov Polynuclear WBCs 29.500, Synov Mononuclear WBCs 3.245, Synovial Neutrophils 87 H, Synovial Lymphocytes 5, Synovial Monocytes 8, Synovial Polynuclear % 90.1, Synovial Mononuclear % 9.9, Synovial Path Comment Reviewed 05/05/22 12:30: Vancomycin Trough 12.5 Micro: Microbiology 05/05/22 07:20 Fluid - Synovial (joint) Gram Stain - Final 05/03/22 20:10 Nasal Secretion SARS-CoV-2 Antigen (Rapid) - Final Radiography Diagnostic Testing: Radiology Impression Echocardiogram 05/03/22 22:39 Interpretation Summary Normal LV size. Left ventricular systolic function is normal. The estimated ejection fraction is 60 %. The left atrium is mildly enlarged. There is mild to moderate mitral annular calcification. Mild (1+) eccentric mitral valve insufficiency. Ordering Physician: Emerita Jarrett Performed By: Diamond Hamilton RCS Rhythm Strip Rhythm Strip: A-fib Rate: 139 Ectopy: None Physical Exam Const alert, oriented x3, no apparent distress and healthy appearing General Appearance: cooperative, well kempt and well developed Orientation / Consciousness: awake, oriented to person, oriented to place and oriented to time HEENT normocephalic and moist oral mucous membranes Eyes PERRL, EOMs intact bilaterally and conjunctivae normal Neck supple, no JVD, thyroid normal and no carotid bruits General: trachea midline Resp normal respiratory effort and clear to auscultation bilaterally Auscultation: Negative for rales, rhonchi or wheezes Cardio regular rate, regular rhythm, no murmurs, no rub and no gallops GI normal to inspection, nondistended, normoactive bowel sounds, soft to palpation, non-tender and non-distended Extremity no clubbing, cyanosis or edema Skin no rashes or lesions noted General Skin Exam: no breakdown Neuro oriented x3, CN's II-XII intact bilaterally, no focal motor deficits and no sensory deficits noted Sensorium / Orientation: awake and alert Speech: speech normal Psych affect normal Assessment & Plan Assessment/Plan (1) Left knee pain: PLAN: Plan 1. Left periprosthetic knee infection-patient will need surgery later this week, patient is on IV antibiotics, these will be adjusted by infectious diseases. #2 permanent atrial fibrillation with RVR-patient's heart rate is currently controlled on rate limiting medications, patient's Eliquis will have to be held due to her upcoming surgery. #3 essential hypertension-patient will continue on her present medications #4 hypothyroidism-patient will remain on her present medication (Synthroid) Charges/Coding Visit Charges Inpatient E&M: 09360 Subs Hosp L2
[2022-05-05] MEDS: 0.9% Saline Lock 10 ML Syringe IV (21:21)
[2022-05-06] VITALS (17 sets, daily range): BP systolic 114–152; BP diastolic 55–83; PULSE 79–89; RESP 18–20; TEMP 35.9–36.9; O2SAT 94–98; BMI 41.3
[2022-05-06] MEDS: 0.9% Saline Lock 10 ML Syringe IV (05:36)
[2022-05-06] MEDS: Levothyroxine 175 MCG Tablet PO (05:40)
[2022-05-06 07:25] LABS: Absolute Lymphocyte Count 2.04 X10^3/uL (0.83-4.51); Absolute Neutrophil Count 5.3 X10^3/uL (2.0-7.7); Basophil# 0.03 X10^3/uL; Basophil% 0.4 % (0-1); Eosinophil# 0.22 X10^3/uL; Eosinophils% 2.6 % (0-5); Hematocrit 37.3 % (37-47); Hemoglobin 12.5 g/dL (12.0-15.0); Lymphocyte # 2.04 X10^3/ul (0.83-4.51); Lymphocyte % 23.9 % (19-41); Mean Corp Hgb Conc 33.5 g/dL (32-36); Mean Corpuscular Hgb 33.5 pg (27.0-32.0); Mean Platelet Vol. 9.6 fl (6.2-12.0); Monocyte% 10.6 % (0-10); NRBC Flagged by Analyzer 0 % (0-5); Neutrophil # 5.28 X10^3/uL (2.7-7.7); Neutrophil % 61.8 % (47-70); Platelet Count 238 K/mm3 (150-450); RBC Distribution Width CV 13.6 % (11.6-14.6); RBC Distribution Width SD 50.3 fl (35.1-43.9); Red Blood Count 3.73 M/mm3 (4.2-5.4); White Blood Count 8.5 K/mm3 (4.4-11.0)
[2022-05-06 07:53] LABS: Anion Gap 3 (5-15); BUN 12 mg/dL (7-18); BUN/Creat Ratio 14.3 RATIO (10-20); Calcium,Total 8.4 mg/dL (8.5-10.1); Chloride 107 mmol/L (98-107); Creatinine, Serum 0.84 mg/dL (0.55-1.02); EST Glomerular Filtration Rate 71 mL/min (>60); Est Glom Filt Rate - Afr Amer 86 mL/min (>60); Estimated Creatinine Clearance 50.08 ml/min; Glucose 90 mg/dL (74-106); Potassium 3.8 mmol/L (3.5-5.1); Sodium Level 138 mmol/L (136-145)
[2022-05-06] MEDS: Multivitamins,Therapeutic Tablet 1 TABLET PO (09:23)
[2022-05-06] MEDS: Metoprolol(XL)Succ 50 MG Tablet PO ×2 (09:23→20:48)
--- NOTE | 2022-05-06 10:19 | PCM.PN.ID ---
Physical Exam Narrative Feeling about the same, some L knee soreness, no fever, mild loose stool Const alert and no apparent distress Resp normal air movement and clear to auscultation bilaterally Cardio regular rate and regular rhythm GI soft to palpation, non-tender and non-distended Extremity General Extremity: edema Skin Skin Narrative: L knee soreness, no rash ID ID: Route of nutrition/ use of supplements: [] Nutritional Intake: [] IV Site: [] Navarro Catheter: [] Assessment & Plan Assessment/Plan (1) S/P total knee arthroplasty: (2) Left knee pain: PLAN: Aspiration with elevated wbc, poly predominant. Ortho following. Cxs pending and crystal study neg. On empiric vanc/zosyn. Some loose stool, will change zosyn to ceftriaxone. OR planned for tomorrow for knee. Will follow (3) Fever:
--- NOTE | 2022-05-06 15:01 | NURSING ---
This RN taking over care of pt at this time
[2022-05-06 16:31] LABS: GLUCOSE, SYNOVIAL FLUID < 2 mg/dL (.)
--- NOTE | 2022-05-06 18:07 | PN.HOSP_ITS ---
Subjective Subjective Patient was seen and examined today, I talked extensively with the patient and her who was in the room at the time of my examination. Patient is scheduled to have a washout and possibly exchange of her left knee tomorrow. She is now on ceftriaxone and vancomycin per ID. Patient appears medically stable at this time. Patient's white blood cell count today was 8.5. Objective Data Objective Data Vital Signs: Vital Signs Temp Pulse Resp BP Pulse Ox O2 Del Method O2 Flow Rate 97.9 F 81 18 117/75 98 Room Air 2 05/06/22 14:49 05/06/22 14:55 05/06/22 14:49 05/06/22 14:49 05/06/22 14:49 05/06/22 14:49 05/06/22 11:00 Oxygen Flow Rate (L/min) 2 Oxygen Delivery Method Room Air Weight: 106.3 kg Body Mass Index (BMI) 41.5 Intake & Output: Intake and Output for Last 24 Hours 05/04/22 05/05/22 05/06/22 23:59 23:59 23:59 Intake Total 790 / 790 700 / 700 Output Total 450 / 450 Balance 340 / 340 700 / 700 Lab / Micro Data Result Diagrams: 05/06/22 06:30 05/06/22 06:30 Labs: Laboratory Results - last 24 hr 05/05/22 07:20: Synovial Glucose < 2 05/06/22 06:30: WBC 8.5, RBC 3.73 L, Hgb 12.5, Hct 37.3, MCV 100.0 H, MCH 33.5 H , MCHC 33.5, RDW Std Deviation 50.3 H, RDW Coeff of Jeovanny 13.6, Plt Count 238, MPV 9.6, Immature Gran % (Auto) 0.700, Neut % (Auto) 61.8, Lymph % (Auto) 23.9, [place]ley % (Auto) 10.6 H, Eos % (Auto) 2.6, Baso % (Auto) 0.4, Absolute Neuts (auto) 5.3, Absolute Lymphs (auto) 2.04, Nucleated RBC % 0 05/06/22 06:30: Sodium 138, Potassium 3.8, Chloride 107, Carbon Dioxide 28.0, A nion Gap 3 L, BUN 12, Creatinine 0.84, Estim Creat Clear Calc 50.08, Est GFR (MDRD) Af Amer 86, Est GFR (MDRD) Non-Af 71, BUN/Creatinine Ratio 14.3, Glucose 90, Calcium 8.4 L Micro: Microbiology 05/03/22 20:45 Blood Culture (Wb) - Left Hand Blood Culture - Preliminary No growth in 48 hours. 05/03/22 20:10 Blood Culture (Wb) - Left Hand Blood Culture - Preliminary No growth in 48 hours. 05/05/22 07:20 Fluid - Synovial (joint) Gram Stain - Final 05/05/22 07:20 Fluid - Synovial (joint) Body Fluid Culture - Preliminary No growth-Final to follow 05/03/22 20:10 Nasal Secretion SARS-CoV-2 Antigen (Rapid) - Final Rhythm Strip Rhythm Strip: A-fib Rate: 139 Ectopy: None Physical Exam Const alert, oriented x3, no apparent distress and healthy appearing General Appearance: cooperative, well kempt and well developed Orientation / Consciousness: awake, oriented to person, oriented to place and oriented to time HEENT normocephalic and moist oral mucous membranes Eyes PERRL, EOMs intact bilaterally and conjunctivae normal Neck supple, no JVD and thyroid normal General: trachea midline Resp normal respiratory effort, no retractions, no use of accessory muscles and clear to auscultation bilaterally Auscultation: Negative for rales, rhonchi or wheezes Cardio no murmurs, no rub and no gallops Cardio Narrative: Heart rate and rhythm is irregular GI normal to inspection, nondistended, normoactive bowel sounds, soft to palpation, non-tender and non-distended Extremity Extremity Narrative: Patient's left knee is swollen and tender to palpation, it is also is mildly reddened Skin no rashes or lesions noted General Skin Exam: no breakdown Neuro oriented x3, CN's II-XII intact bilaterally, no focal motor deficits and no sensory deficits noted Sensorium / Orientation: awake and alert Speech: speech normal Psych affect normal Assessment & Plan Assessment/Plan (1) Left knee pain: PLAN: Plan 1. 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 #2 permanent atrial fibrillation with RVR-patient's heart rate is currently controlled on rate limiting medications, patient's Eliquis will have to be held due to her upcoming surgery. #3 essential hypertension-patient will continue on her present medications #4 hypothyroidism-patient will remain on her present medication (Synthroid) Charges/Coding Visit Charges Inpatient E&M: 40526 Subs Hosp L2
[2022-05-07] VITALS (21 sets, daily range): BP systolic 100–144; BP diastolic 55–91; PULSE 71–88; RESP 15–18; TEMP 35.6–36.8; O2SAT 93–100; BMI 41.4
[2022-05-07] MEDS: Metoprolol(XL)Succ 50 MG Tablet PO ×2 (10:12→22:08)
[2022-05-07 12:58] LABS: Vancomycin, Trough Level 16.9 ug/mL (5.0-15.0)
[2022-05-07] MEDS: Vancomycin IV 1,000 MG/20 ML Vial 1000 MG IV (16:00)
--- NOTE | 2022-05-07 16:32 | PCM.RX.CS ---
Consult Pharmacy has been consulted to manage selected antiobiotic: Vancomycin Type of Consult: Follow-up Suspected Infection: Skin/Soft tissue Prior Doses of Antibiotics Received/Current Regimen: Currently on 1250mg iv q12h. Labs: Sodium 138 mmol/L (136-145) 05/06/22 06:30 Potassium 3.8 mmol/L (3.5-5.1) 05/06/22 06:30 Chloride 107 mmol/L (98-107) 05/06/22 06:30 Carbon Dioxide 28.0 mmol/L (21.0-32.0) 05/06/22 06:30 Anion Gap 3 (5-15) L 05/06/22 06:30 BUN 12 mg/dL (7-18) 05/06/22 06:30 Creatinine 0.84 mg/dL (0.55-1.02) 05/06/22 06:30 Est GFR (MDRD) Af Amer 86 mL/min (>60) 05/06/22 06:30 Est GFR (MDRD) Non-Af 71 mL/min (>60) 05/06/22 06:30 BUN/Creatinine Ratio 14.3 RATIO (10-20) 05/06/22 06:30 Glucose 90 mg/dL (74-106) 05/06/22 06:30 Vancomycin Trough 16.9 ug/mL (5.0-15.0) H 05/07/22 12:25 Microbiology: Microbiology 05/03/22 23:57 Mucosa - Nose Respiratory Panel (PCR) - Final 05/03/22 20:45 Blood Culture (Wb) - Left Hand Blood Culture - Preliminary No growth in 48 hours. 05/03/22 20:10 Blood Culture (Wb) - Left Hand Blood Culture - Preliminary No growth in 48 hours. 05/05/22 07:20 Fluid - Synovial (joint) Gram Stain - Final 05/05/22 07:20 Fluid - Synovial (joint) Body Fluid Culture - Preliminary No growth-Final to follow 05/03/22 20:10 Nasal Secretion SARS-CoV-2 Antigen (Rapid) - Final Weight used for dosin kg Estimated Creatinine Clearance: 71ml/min Goal Trough: 15-20 mcg/mL Pharmacy Plan for Drug Dosing: Today's trough level was 16.9 and in therapeutic range. Using adjusted body weight of 73.8kg, SCrCl was calculated to be ~71ml/min. Will continue same dose and frequency with another trough level before 4th dose. Pharmacy Service will continue to monitor and adjust dosing as required. Follow-Up Labs: Trough Vancomycin - 05.09.22
--- NOTE | 2022-05-07 16:40 | OP.PCM_ITS ---
Operative Report Date of Procedure: 05/07/22 Preoperative diagnosis: Septic left total knee acute Postoperative diagnosis: Same Procedure: Open irrigation debridement of synovium washout and polyethylene liner exchange Anesthesia: General LMA EBL: 200 Complications: None Condition: Stable to PACU Implants: [place] tibial baseplate polyethylene size 9 posterior stabilized X3 Tourniquet time: 36 minutes 300 mmHg Mammal Control Agent Adrian Persaud. My physician medical record assistant was a vital part of this case. He was important in appropriate retraction during the case, and protection of soft tissues during procedure. His intimate knowledge of the case and my steps aided in safe and expedient completion of the procedure as well as appropriate position of the extremity during the case. He was also vital in assisting with closure under my direct supervision. Indication for procedure: 71-year-old female who underwent total knee arthroplasty in October 2018 patient did have problems with postoperative stiffness and did have a manipulation under anesthesia 6 weeks after she has been fine ever since, she was recently admitted the hospital with A. yaquelin with RVR at which time she had a fever and elevated inflammatory markers and was complaining that over the past 2 weeks she had increased pain and warmth in the left knee. She was started on antibiotics by her admitting physician. I was consulted and did perform an aspiration of her left knee which demonstrated 33,000 white blood cell count with 85% neutrophils, elevated ESR and CRP, this gave her 3 minor criteria and periprosthetic joint infection is assumed, stating however that symptoms were only 2 weeks we discussed risks and benefits of polyethylene exchange with thorough washout and debridement versus a two-stage revision, patient and family member wish to proceed with surgery risk benefits and alternatives were reviewed including risk of bleeding infection nerve, artery, b one, tissue damage, blood clot need for further surgery and continued pain, continued infection. Procedure: Patient was met in the preoperative holding area and the operative extremity was identified by both patient and physician and was marked. Patient was met by anesthesia and brought back to the operating 1 wheeled cart and transferred to the operating table in the supine position anesthesia was started. A well-padded tourniquet was placed on the operative extremity and the patient was prepped and draped in the usual sterile fashion a timeout was called to ensure the proper patient procedure and extremity were being contemplated. Her previous incision was marked and a 10 blade scalpel was used to make full- thickness flaps until the joint capsule was reached hemostasis was achieved with the use of an aqua mantis and electrocautery a medial parapatellar arthrotomy was performed however the patient has significant stiffness of only 70 degrees of flexion therefore quadriceps snip was performed. A radical synovectomy was performed and 2 synovial tissue samples were sent for culture aerobic and anaerobic. The polyethylene spacer was removed with an osteotome and thorough debridement of the posterior joint space was also performed there was some cloudy synovial fluid but no purulence. Thorough irrigation of the knee was performed followed by a Betadine rinse that was allowed to sit for 3 minutes. Curettes were used to further agitate the tissue in the posterior recess as well as the gutters and around the joint capsule ,this was thoroughly irrigated out. A hydrogen peroxide solution with 50:50 3% hydrogen peroxide and normal saline was allowed to sit within the knee joint and it was agitated in the posterior recess for 3 minutes. This was thoroughly irrigated out a scrub brush was used during this time on all metal surfaces to remove any biofilm as well after this was allowed to sit it was thoroughly rinsed out with more saline a total of 6 L of irrigation was used through the pulse lavage. Following this we inserted a new polyethylene component after a when changed her gloves and new instruments were used. We then used an Irrisept lavage and closed the quadriceps with #2 FiberWire and the retinaculum with #1 Ethibond subcutaneous closure was performed with 0 Vicryl and 2-0 Vicryl. [place] in the skin and a Mepilex Ag dressing was placed tourniquet was let down prior to the insertion of the polyethylene component and hemostasis was under control. Patient was brought back to the PACU in stable condition all counts were correct no intraoperative complications she will follow her total knee protocol.
[2022-05-07] MEDS: Lactated Ringers 1,000 ML 125 ML IV (17:43)
--- NOTE | 2022-05-07 20:01 | PCM.PN.HOSP ---
Subjective Subjective Patient was seen and examined today, she went for open irrigation and debridement of synovium washout and polyethylene liner exchange of her left knee. Patient has postsurgical pain at this time but is not complain of any shortness of breath or chest discomfort Objective Data Objective Data Vital Signs: Vital Signs Temp Pulse Resp BP Pulse Ox O2 Del Method O2 Flow Rate 97 F L 71 16 100/55 L 98 Room Air 2 05/07/22 18:24 05/07/22 18:24 05/07/22 18:24 05/07/22 18:24 05/07/22 19:30 05/07/22 19:30 05/07/22 05:00 Oxygen Flow Rate (L/min) 2 Oxygen Delivery Method Room Air Weight: 106 kg Body Mass Index (BMI) 41.3 Intake & Output: Intake and Output for Last 24 Hours 05/05/22 05/06/22 05/07/22 23:59 23:59 23:59 Intake Total 790 / 790 1340 / 1340 689.58 / 689.58 Output Total 450 / 450 900 / 900 Balance 340 / 340 1340 / 1340 -210.42 / -210.42 Lab / Micro Data Result Diagrams: 05/06/22 06:30 05/06/22 06:30 Labs: Laboratory Results - last 24 hr 05/07/22 12:25: Vancomycin Trough 16.9 H Micro: Microbiology 05/03/22 23:57 Mucosa - Nose Respiratory Panel (PCR) - Final 05/03/22 20:45 Blood Culture (Wb) - Left Hand Blood Culture - Preliminary No growth in 48 hours. 05/03/22 20:10 Blood Culture (Wb) - Left Hand Blood Culture - Preliminary No growth in 48 hours. 05/05/22 07:20 Fluid - Synovial (joint) Gram Stain - Final 05/05/22 07:20 Fluid - Synovial (joint) Body Fluid Culture - Preliminary No growth-Final to follow 05/03/22 20:10 Nasal Secretion SARS-CoV-2 Antigen (Rapid) - Final Rhythm Strip Rhythm Strip: A-fib Rate: 139 Ectopy: None Physical Exam Const alert and oriented x3 Constitutional Narrative: Patient is in moderate distress due to surgical pain in her left knee HEENT head/scalp atraumatic and moist oral mucous membranes Eyes EOMs intact bilaterally and conjunctivae normal Neck supple and no JVD Resp normal respiratory effort, no retractions, no use of accessory muscles and clear to auscultation bilaterally Cardio S1 normal heart sound, S2 normal heart sound, no murmurs and no rub Cardio Narrative: Heart rate and rhythm is irregular GI normal to inspection, nondistended, normoactive bowel sounds, soft to palpation, non-tender and non-distended Neuro oriented x3, CN's II-XII intact bilaterally, moves all extremities and no focal motor deficits Sensorium / Orientation: awake and alert Psych affect normal Assessment & Plan Assessment/Plan (1) S/P total knee arthroplasty: (2) Left knee pain: PLAN: Plan 1. Left periprosthetic knee infection-patient underwent surgery today on her left knee, she will remain on Rocephin and vancomycin #2 permanent atrial fibrillation with RVR-patient's heart rate is currently controlled on rate limiting medications, patient's Eliquis will have to be held due to her upcoming surgery. #3 essential hypertension-patient will continue on her present medications #4 hypothyroidism-patient will remain on her present medication (Synthroid) Charges/Coding Visit Charges Inpatient E&M: 50283 Subs Hosp L2
--- NOTE | 2022-05-07 20:42 | PCM.RX.CS ---
Consult Pharmacy has been consulted to manage selected antiobiotic: Vancomycin Type of Consult: Follow-up Labs: Sodium 138 mmol/L (136-145) 05/06/22 06:30 Potassium 3.8 mmol/L (3.5-5.1) 05/06/22 06:30 Chloride 107 mmol/L (98-107) 05/06/22 06:30 Carbon Dioxide 28.0 mmol/L (21.0-32.0) 05/06/22 06:30 Anion Gap 3 (5-15) L 05/06/22 06:30 BUN 12 mg/dL (7-18) 05/06/22 06:30 Creatinine 0.84 mg/dL (0.55-1.02) 05/06/22 06:30 Est GFR (MDRD) Af Amer 86 mL/min (>60) 05/06/22 06:30 Est GFR (MDRD) Non-Af 71 mL/min (>60) 05/06/22 06:30 BUN/Creatinine Ratio 14.3 RATIO (10-20) 05/06/22 06:30 Glucose 90 mg/dL (74-106) 05/06/22 06:30 Vancomycin Trough 16.9 ug/mL (5.0-15.0) H 05/07/22 12:25 Microbiology: Microbiology 05/03/22 23:57 Mucosa - Nose Respiratory Panel (PCR) - Final 05/03/22 20:45 Blood Culture (Wb) - Left Hand Blood Culture - Preliminary No growth in 48 hours. 05/03/22 20:10 Blood Culture (Wb) - Left Hand Blood Culture - Preliminary No growth in 48 hours. 05/05/22 07:20 Fluid - Synovial (joint) Gram Stain - Final 05/05/22 07:20 Fluid - Synovial (joint) Body Fluid Culture - Preliminary No growth-Final to follow 05/03/22 20:10 Nasal Secretion SARS-CoV-2 Antigen (Rapid) - Final Goal Trough: 15-20 mcg/mL Pharmacy Plan for Drug Dosing: VANCOMYCIN LEVEL RECEIVED Current Vancomycin Dose: 1250MG IV Q12H Number of Doses Received:3 Vancomycin Level: 16.9 Hours Since Last Dose: 11HR Renal Function: 0.84 Renal Function Trend: stable Vancomycin Plan/Comments: The patient had a trough drawn which resulted in a value of 16.9 (15-20). Will continue current dose and recheck a trough. Of note: pt was in surgery and didnt have afternoon dose until 1737. Will retime to make new administration times of 0500/1700 Pending Level: 05/09/22 @1630 Pharmacy Service will continue to monitor and adjust dosing as required.
[2022-05-07] MEDS: HYDROcodone Bitartrate/Apap 5/325 Tablet PO (22:02)
[2022-05-08] VITALS (16 sets, daily range): BP systolic 92–128; BP diastolic 63–81; PULSE 84–98; RESP 16–18; TEMP 35.6–36.2; O2SAT 95–98
[2022-05-08 05:21] LABS: Hematocrit 33.4 % (37-47); Hemoglobin 10.9 g/dL (12.0-15.0); Mean Corp Hgb Conc 32.6 g/dL (32-36); Mean Corpuscular Hgb 32.9 pg (27.0-32.0); Mean Corpuscular Volume 100.9 fL (81-99); Mean Platelet Vol. 9.5 fl (6.2-12.0); Platelet Count 216 K/mm3 (150-450); RBC Distribution Width CV 13.7 % (11.6-14.6); RBC Distribution Width SD 50.9 fl (35.1-43.9); Red Blood Count 3.31 M/mm3 (4.2-5.4); White Blood Count 9.9 K/mm3 (4.4-11.0)
[2022-05-08] MEDS: Acetaminophen 500 MG Tablet 1000 MG PO ×2 (05:37→15:39)
[2022-05-08] MEDS: APIXABAN 5 MG TABLET PO ×2 (05:38→20:16)
[2022-05-08] MEDS: Levothyroxine 175 MCG Tablet PO (05:40)
[2022-05-08 05:45] LABS: Anion Gap 7 (5-15); BUN 13 mg/dL (7-18); BUN/Creat Ratio 16.3 RATIO (10-20); Calcium,Total 7.6 mg/dL (8.5-10.1); Chloride 104 mmol/L (98-107); EST Glomerular Filtration Rate 75 mL/min (>60); Est Glom Filt Rate - Afr Amer 91 mL/min (>60); Estimated Creatinine Clearance 52.58 ml/min; Glucose 129 mg/dL (74-106); Sodium Level 137 mmol/L (136-145)
--- NOTE | 2022-05-08 08:46 | PCM.PN.ORT ---
Subjective Subjective Seen and examined. Doing well pain controlled denies fevers or chills no complaints. Objective Data Objective Data Vital Signs: Vital Signs Temp Pulse Resp BP Pulse Ox O2 Del Method O2 Flow Rate 96.1 F L 91 16 112/73 96 Room Air 2 05/08/22 05:00 05/08/22 07:00 05/08/22 05:00 05/08/22 05:00 05/08/22 05:00 05/08/22 05:00 05/08/22 05:00 Oxygen Flow Rate (L/min) 2 Oxygen Delivery Method Room Air Weight: 233 lb 11.04 oz Body Mass Index (BMI) 41.3 Intake & Output: Intake and Output for Last 24 Hours 05/06/22 05/07/22 05/08/22 23:59 23:59 23:59 Intake Total 1340 / 1340 689.58 / 689.58 275 / 275 Output Total 900 / 900 Balance 1340 / 1340 -210.42 / -210.42 275 / 275 Lab / Micro Data Result Diagrams: 05/08/22 05:04 05/08/22 05:04 Labs: Laboratory Results - last 24 hr 05/07/22 12:25: Vancomycin Trough 16.9 H 05/08/22 05:04: WBC 9.9, RBC 3.31 L, Hgb 10.9 L, Hct 33.4 L, MCV 100.9 H, MCH 32.9 H, MCHC 32.6, RDW Std Deviation 50.9 H, RDW Coeff of Jeovanny 13.7, Plt Count 216, MPV 9.5 05/08/22 05:04: Sodium 137, Potassium 4.0, Chloride 104, Carbon Dioxide 26.0, Anion Gap 7, BUN 13, Creatinine 0.80, Estim Creat Clear Calc 52.58, Est GFR (MDRD) Af Amer 91, Est GFR (MDRD) Non-Af 75, BUN/Creatinine Ratio 16.3, Glucose 129 H, Calcium 7.6 L Micro: Microbiology 05/03/22 23:57 Mucosa - Nose Respiratory Panel (PCR) - Final 05/03/22 20:45 Blood Culture (Wb) - Left Hand Blood Culture - Preliminary No growth in 48 hours. 05/03/22 20:10 Blood Culture (Wb) - Left Hand Blood Culture - Preliminary No growth in 48 hours. 05/05/22 07:20 Fluid - Synovial (joint) Gram Stain - Final 05/05/22 07:20 Fluid - Synovial (joint) Body Fluid Culture - Preliminary No growth-Final to follow 05/03/22 20:10 Nasal Secretion SARS-CoV-2 Antigen (Rapid) - Final Rhythm Strip Rhythm Strip: A-fib Rate: 139 Ectopy: None Physical Exam Const alert, oriented x3 and no apparent distress Extremity Extremity Narrative: Left knee dressing clean dry and intact compartments soft neurovascular intact Assessment & Plan Assessment/Plan (1) Infection of total knee replacement: PLAN: Plan Postop day #1 open washout debridement polyethylene exchange left knee Continue IV antibiotics 6 weeks per infectious disease PT OT weightbearing as tolerated DVT prophylaxis resuming Eliquis preoperative dose Dressing should be left on until thursday then removed prior to for shower begin cleaning daily with antibacterial soap on Thursday but do not submerge, dressing should be changed daily beginning Thursday reapply with a dry dressing and JOHN hose. Follow-up with me in 2 weeks in my office Patient should begin outpatient physical therapy as soon as possible.
--- NOTE | 2022-05-08 09:57 | PCM.PN.ID ---
Physical Exam Narrative Knee pain controlled s/p OR. No fever, no n/v/d. Const alert and no apparent distress Resp normal air movement and clear to auscultation bilaterally Cardio regular rate and regular rhythm GI soft to palpation, non-tender and non-distended Skin no rashes or lesions noted Skin Narrative: Knee wrapped ID ID: Route of nutrition/ use of supplements: [] Nutritional Intake: [] IV Site: [] Navarro Catheter: [] Assessment & Plan Assessment/Plan (1) S/P total knee arthroplasty: (2) Left knee pain: PLAN: Aspiration with elevated wbc, poly predominant. Ortho following. Cxs neg so far and crystal study neg. On empiric vanc/ceftriaxone. Taken to OR 05/07/[address] Westfall for I&D and poly exchange. Surg cx pending. Will order picc and 6 weeks iv vanc/ceftriaxone, stop date 06/18/22 with weekly labs. ID followup in 2 weeks. Will request micro lab hold surg cx for 2 weeks. Will follow (3) Fever:
[2022-05-08] MEDS: HYDROcodone Bitartrate/Apap 5/325 Tablet PO ×2 (10:07→20:16)
[2022-05-08] MEDS: Multivitamins,Therapeutic Tablet 1 TABLET PO (10:10)
[2022-05-08] MEDS: 0.9% Saline Lock 10 ML Syringe IV (10:10)
--- NOTE | 2022-05-08 10:21 | CASEMGMT ---
Addendum entered by Inez Chambers 05/08/22 16:28: Call from [facility] and they cannot accept pt. Referral sent to [facility] via [facility]. CM to follow. Gal DEL CID CM Addendum entered by Inez Chambers 05/08/22 15:28: Per Saige at [facility], they are working on getting staffing set up for pt this weekend and will call RN LANG back once figured out. CM to follow. Pt states [facility] would be her 2nd choice, if [facility] cannot accept. Gal DEL CID CM Addendum entered by Inez Chambers 05/08/22 14:48: Pt/ state they would like [facility] and message left with Saige at [facility] regarding same. Per [facility], pt has a weekly co-pay of $119.68 and pt/ updated. CM to follow. Gal DEL CID CM Addendum entered by Inez Chambers 05/08/22 12:06: Order placed for SN, PT/OT. Gal DEL CID CM Addendum entered by Inez Chambers 05/08/22 12:04: Pt/ would like to go home with [facility] and IV antibx set up thru [facility]. Pt/ perusing [facility] list and this RN CM will check back. Referral for IV antibx sent via [facility]. CM to follow. Gal DEL CID CM Original Note: Pt will need IV antibx x2 at discharge and therapy s/p septic knee surgery. Pt states would like to go home at discharge but states will be coming in about 1100. This RN LANG to check back when arrives and pt to be provided with list of SNF and [facility] providers including quality and resource use data and consistent w/ the pt's preferred geographic region, medical needs, and insurance network. Pt will need to be on vancomycin 1.25 gram IV every 12 hours and ceftriaxone 2 g IV every 24 hours. Gal DEL CID CM
--- NOTE | 2022-05-08 13:40 | RAD_ITS ---
STUDY: X-RAY CHEST REASON FOR EXAM: Female, 71 years old. picc line placement TECHNIQUE: Single AP portable view of the chest. COMPARISON: Comparison is made with prior study dated 05/03/2022. FINDINGS: A right-sided PICC line catheter has been inserted. The tip is coiled in the region of the right subclavian vein. EKG electrodes are seen. The lungs are clear and expanded. There is no demonstrated pleural abnormality. Normal size heart. Normal mediastinum and leatha. Normal visualized pulmonary arteries. There is atherosclerotic calcification of the aortic arch with tortuosity. Normal visualized thoracic spine. Normal visualized ribs, clavicles, and shoulders. There is no demonstrated abnormality of the visualized soft tissue structures of the upper abdomen. RAD/CXR for Line Placement IMPRESSION: The tip of the right PICC line catheter is coiled in the region of the right axillary vein. The lungs are clear. Electronically Signed: James Carter MD at 13:59 EST ,
--- NOTE | 2022-05-08 15:10 | RAD_ITS ---
STUDY: X-RAY CHEST REASON FOR EXAM: Female, 71 years old. stat portable for picc line placement -- restarted TECHNIQUE: AP portable COMPARISON: 05/08/2022 1:39 PM FINDINGS: The lungs are clear and expanded. There is no demonstrated pleural abnormality. Normal size heart. Normal mediastinum and leatha. Normal visualized pulmonary arteries. Mildly calcified aortic arch and descending thoracic aorta. PICC line has been placed on the left with tip in the distal superior vena cava. Dorsal spine demonstrates degenerative change. Normal visualized ribs, clavicles, and shoulders. There is no demonstrated abnormality of the visualized soft tissue structures of the upper abdomen. RAD/CXR for Line Placement IMPRESSION: No acute disease status post PICC line placement. Electronically Signed: Dixon Avilez MD at 16:39 EST ,
[2022-05-08] MEDS: Metoprolol(XL)Succ 50 MG Tablet PO ×2 (15:40→20:16)
--- NOTE | 2022-05-08 17:48 | PN.HOSP_ITS ---
Subjective Subjective Patient was seen and examined today, she complains of knee pain today, she has no complaints of any shortness of breath or chest discomfort. Objective Data Objective Data Vital Signs: Vital Signs Temp Pulse Resp BP Pulse Ox O2 Del Method O2 Flow Rate 96.7 F L 96 16 116/81 H 97 Room Air 2 05/08/22 16:00 05/08/22 16:00 05/08/22 16:00 05/08/22 16:00 05/08/22 16:00 05/08/22 16:18 05/08/22 11:00 Oxygen Flow Rate (L/min) 2 Oxygen Delivery Method Room Air Weight: 106 kg Body Mass Index (BMI) 41.3 Intake & Output: Intake and Output for Last 24 Hours 05/06/22 05/07/22 05/08/22 23:59 23:59 23:59 Intake Total 1340 / 1340 689.58 / 689.58 994.5 / 994.5 Output Total 900 / 900 800 / 800 Balance 1340 / 1340 -210.42 / -210.42 194.5 / 194.5 Lab / Micro Data Result Diagrams: 05/08/22 05:04 05/08/22 05:04 Labs: Laboratory Results - last 24 hr 05/08/22 05:04: WBC 9.9, RBC 3.31 L, Hgb 10.9 L, Hct 33.4 L, MCV 100.9 H, MCH 32.9 H, MCHC 32.6, RDW Std Deviation 50.9 H, RDW Coeff of Jeovanny 13.7, Plt Count 216, MPV 9.5 05/08/22 05:04: Sodium 137, Potassium 4.0, Chloride 104, Carbon Dioxide 26.0, Anion Gap 7, BUN 13, Creatinine 0.80, Estim Creat Clear Calc 52.58, Est GFR (MDRD) Af Amer 91, Est GFR (MDRD) Non-Af 75, BUN/Creatinine Ratio 16.3, Glucose 129 H, Calcium 7.6 L Micro: Microbiology 05/07/22 16:15 Tissue - Synovium Gram Stain - Final 05/07/22 16:15 Tissue - Synovium Wound Culture - Preliminary No growth-Final to follow 05/07/22 16:15 Tissue - Synovium Gram Stain - Final 05/07/22 16:15 Tissue - Synovium Wound Culture - Preliminary No growth-Final to follow 05/05/22 07:20 Fluid - Synovial (joint) Gram Stain - Final 05/05/22 07:20 Fluid - Synovial (joint) Body Fluid Culture - Preliminary No growth-Final to follow 05/03/22 23:57 Mucosa - Nose Respiratory Panel (PCR) - Final 05/03/22 20:45 Blood Culture (Wb) - Left Hand Blood Culture - Preliminary No growth in 48 hours. 05/03/22 20:10 Blood Culture (Wb) - Left Hand Blood Culture - Preliminary No growth in 48 hours. 05/03/22 20:10 Nasal Secretion SARS-CoV-2 Antigen (Rapid) - Final Radiography Diagnostic Testing: Radiology Impression Chest X-Ray 05/08/22 13:40 IMPRESSION: The tip of the right PICC line catheter is coiled in the region of the right axillary vein. The lungs are clear. Electronically Signed: James Carter MD at 13:59 EST , Chest X-Ray 05/08/22 15:10 IMPRESSION: No acute disease status post PICC line placement. Electronically Signed: Dixon Avilez MD at 16:39 EST , Rhythm Strip Rhythm Strip: A-fib Rate: 139 Ectopy: None Physical Exam Const alert, oriented x3, no apparent distress and healthy appearing General Appearance: cooperative, well kempt and well developed Orientation / Consciousness: awake, oriented to person, oriented to place and oriented to time HEENT normocephalic, head/scalp atraumatic and moist oral mucous membranes Eyes PERRL, EOMs intact bilaterally and conjunctivae normal Neck supple, no JVD, thyroid normal and no carotid bruits General: trachea midline Resp normal respiratory effort, no retractions, no use of accessory muscles and clear to auscultation bilaterally Auscultation: Negative for rales, rhonchi or wheezes Cardio S1 normal heart sound, S2 normal heart sound, no murmurs, no rub and no gallops Cardio Narrative: Heart rate and rhythm is irregular GI normal to inspection, nondistended, normoactive bowel sounds, soft to palpation, non-tender and non-distended Skin no rashes or lesions noted General Skin Exam: no breakdown Neuro oriented x3, CN's II-XII intact bilaterally, no focal motor deficits and no sensory deficits noted Sensorium / Orientation: awake and alert Speech: speech normal Psych affect normal Assessment & Plan Assessment/Plan (1) S/P total knee arthroplasty: (2) Left knee pain: PLAN: Plan 1. Left periprosthetic knee infection-postop day #1 open washout debridement a nd polyethylene exchange left knee #2 permanent atrial fibrillation with RVR-patient's heart rate is currently controlled on rate limiting medications, patient's Eliquis was resumed today #3 essential hypertension-patient will continue on her present medications #4 hypothyroidism-patient will remain on her present medication (Synthroid) #5 morbid obesity-complicates care, management, recovery, and prognosis Charges/Coding Visit Charges Inpatient E&M: 25164 Subs Hosp L2
[2022-05-09] VITALS (8 sets, daily range): BP systolic 99–122; BP diastolic 61–73; PULSE 86–97; RESP 16–18; TEMP 36.3–36.9; O2SAT 95–98
[2022-05-09] MEDS: 0.9% Saline Lock 10 ML Syringe IV (04:36)
[2022-05-09] MEDS: Levothyroxine 175 MCG Tablet PO (05:17)
[2022-05-09] MEDS: HYDROcodone Bitartrate/Apap 5/325 Tablet PO ×2 (05:17→15:18)
[2022-05-09 06:33] LABS: Hematocrit 32.4 % (37-47); Hemoglobin 10.9 g/dL (12.0-15.0); Mean Corp Hgb Conc 33.6 g/dL (32-36); Mean Corpuscular Hgb 33.2 pg (27.0-32.0); Mean Corpuscular Volume 98.8 fL (81-99); Mean Platelet Vol. 9.6 fl (6.2-12.0); Platelet Count 214 K/mm3 (150-450); RBC Distribution Width CV 13.7 % (11.6-14.6); RBC Distribution Width SD 49.5 fl (35.1-43.9); Red Blood Count 3.28 M/mm3 (4.2-5.4)
[2022-05-09] MEDS: APIXABAN 5 MG TABLET PO (09:15)
[2022-05-09] MEDS: Metoprolol(XL)Succ 50 MG Tablet PO (09:16)
[2022-05-09] MEDS: Multivitamins,Therapeutic Tablet 1 TABLET PO (09:16)
--- NOTE | 2022-05-09 10:24 | CASEMGMT ---
Addendum entered by Cindy Alvarenga 05/09/22 13:29: Per Geraldine @ [facility], they are able to accept pt for SOC tomorrow AM @ 8 AM. Call placed to [facility] and spoke w/Ingrid. She was made aware and states they will deliver medication/supplies to pt's home tonight. Pt to receive 5 PM Vanco IV dose this PM and then to discharge home. [facility] to meet w/pt @ her home tomorrow AM @ 8 AM for SOC. Pt and made aware of all of the above. They deny having other discharge planning needs/concerns. RN, Shanta, special agent in charge, Gloria, and Dr Carlos also notified. Hermes PACHECO RN, CM Addendum entered by Cindy Alvarenga 05/09/22 12:23: [facility] unable to accept pt. Call received back from Guilherme @ [facility]. He was made aware referral has been sent via [facility]. He states they will review referral and get back to [facility]. Hermes PACHECO RN, CM Original Note: RN LANG NOTE: RN CM to room and introduced self and role. Pt made aware [facility] unable to accept and [facility] unable to accept. Pt states her next choice is [facility] beds at the [facility] and if they are not able to accept then she does not have any preference and told RN LANG to send referral to whoever may be able to take her. Call placed to [facility] beds at the [facility] and they are unable to accept d/t staffing. Call placed to [facility]-per Lucy, they do not cover [facility]. Call placed to [facility], [facility], [facility], [facility], [facility], and [facility]. None of these agencies able to take d/t staffing. Call to [facility]-they do not do IV atb's Call to [facility]-they are not in network w/Arjun MCKEE Call to [facility] and VM left w/Guilherme. Awaiting return call. Call to [facility] and spoke to Angie. She requested referral be sent via [employer]. Referral sent at this time. She was made aware pt is ready for discharge today . Awaiting response. PICC insertion documentation sent to [facility] via [facility]. Hermes PACHECO RN CM
--- NOTE | 2022-05-09 12:18 | PN.ID_ITS ---
Physical Exam Narrative Feeling better, knee less sore, no fever Const alert and no apparent distress Resp normal air movement and clear to auscultation bilaterally Cardio regular rate and regular rhythm GI soft to palpation, non-tender and non-distended Extremity General Extremity: edema Skin no rashes or lesions noted ID ID: Route of nutrition/ use of supplements: [] Nutritional Intake: [] IV Site: [] Navarro Catheter: [] Assessment & Plan Assessment/Plan (1) S/P total knee arthroplasty: (2) Left knee pain: PLAN: * Aspiration with elevated wbc, poly predominant. Ortho following. Cxs neg so far and crystal study neg. On empiric vanc/ceftriaxone. Taken to OR 05/07/[address] Westfall for I&D and poly exchange. Surg cx showing some GPC. Picc in for 6 weeks iv vanc/ceftriaxone, stop date 06/18/22 with weekly labs. ID followup in 2 weeks. Requested micro lab hold surg cx for 2 weeks. Will follow (3) Fever:
--- NOTE | 2022-05-09 15:38 | DCINST_ITS ---
Discharge Instructions Diet Discharge Diet: No restrictions Activity Discharge Activity: - (Do not change dressing until 05/12/2022, wash area with antibacterial soap and replace a clean dressing daily) Weight Bearing Status: Weight bearing as tolerated Dressing / Incision Change Dressing in: 3 days (On 05/12/2022, wash area daily with antibacterial soap and apply clean dressing daily to the area) Cleanse incision/area with: Soap & Water (Antibacterial soap and water) Follow Up Care Test Results: Test results from this visit will be discussed in further detail at your follow- up appointment, if applicable. Discharge Plan Admission Admit Date/Time: 05/03/22 22:33 Primary Reason for Your Visit: Left knee infection (septic left total knee) Attending Provider: Parth Carlos Primary Care Provider: Bryce Somers Consulting Providers: Emerita Jarrett ; Armen Westfall ; Kaiden Montes ; Jw Brooks Discharge Orders/Prescriptions Prescriptions: New ceftriaxone 2 gram recon soln 2 g IV Q24H Qty: 40 0RF Rx Instructions: stop date 06/18/22 dx: knee PJI weekly bmp, cbc, vanc trough, and ESR. fax to [phone] routine picc care per protocol vancomycin 1.25 gram recon soln 1.25 g IV Q12H Qty: 80 0RF Rx Instructions: stop date 06/18/22 dx: knee PJI weekly bmp, cbc, vanc trough, and ESR. fax to [phone] routine picc care per protocol hydrocodone-acetaminophen 5-325 mg Tablet 1 tab PO Q4H PRN PRN (Reason: Pain Score 4-10) 7 Days Qty: 42 0RF Continued multivitamin tablet 1 tab PO DAILY lisinopril-hydrochlorothiazide 20-25 mg tablet 0.5 tab PO DAILY levothyroxine 150 mcg tablet 150 mcg PO DAILY metoprolol succinate 50 mg tablet extended release 24 hr 50 mg PO BID Qty: 180 3RF Eliquis 5 mg tablet 5 mg PO BID Qty: 180 3RF Discontinued hydrocodone-acetaminophen 5-325 mg tablet 1 tab PO Q4H PRN (Reason: pain) Qty: 56 0RF Rx Instructions: 1-2 tabs po Q 4hr prn pain Referrals / Follow Up: Bryce Somers DO [Primary Care Provider] - Armen Westfall DO [Med Staff - Active Staff] - See Referral Note (in two weeks- call for appointment) Disposition Disposition (needs filled in before D/C Order can be placed): Home Health Service
--- NOTE | 2022-05-09 15:51 | DS.PCM_ITS ---
Providers Date of Admission: 05/03/22 Date of Discharge: 05/09/22 Primary Care Physician: Dr. Bryce Somers, Consultations 05/04/22 13:49 Consult: Orthopedics Routine Consulting Provider: Armen Westfall Reason for Consult: Left knee pain, warm, r/o septic arthritis EMERGENT Consult: No Notified: Yes Date Notified: 05/04/22 Time Notified: 13:49 Method of Notification: Verbal 05/05/22 11:43 Consult: Infectious Disease Routine Consulting Provider: Jw Brooks Reason for Consult: left knee effusion EMERGENT Consult: No Notified: Yes Date Notified: 05/05/22 Time Notified: 11:43 Method of Notification: Verbal Reason For Visit: FEVER/AFIB WITH RVR Diagnosis Discharge Diagnosis (1) S/P total knee arthroplasty: Status: Acute Code(s): Z96.659 - Presence of unspecified artificial knee joint (2) Left knee pain: Status: Acute Code(s): M25.562 - Pain in left knee (3) Fever: Status: Acute Code(s): R50.9 - Fever, unspecified Plan 1. Left periprosthetic knee infection- #2 permanent atrial fibrillation with RVR-patient's heart rate is currently controlled on rate limiting medications, patient's Eliquis was resumed today #3 essential hypertension-patient will continue on her present medications #4 hypothyroidism-patient will remain on her present medication (Synthroid) #5 morbid obesity-complicates care, management, recovery, and prognosis Medications at Discharge Home Medications levothyroxine 150 mcg tablet 150 mcg PO DAILY thyroid 10/01/18 multivitamin 1 tab PO DAILY supplement 10/06/18 metoprolol succinate 50 mg tablet,extended release 24 hr 50 mg PO BID heart #180 tabs 11/18/21 apixaban 5 mg tablet (Eliquis) 5 mg PO BID afib #180 tabs 01/07/22 lisinopril 20 mg-hydrochlorothiazide 25 mg tablet 0.5 tab PO DAILY blood pressure 05/03/22 ceftriaxone 2 gram intravenous solution 2 g IV Q24H #40 ea 05/08/22 vancomycin 1.25 gram intravenous solution 1.25 g IV Q12H #80 ea 05/08/22 hydrocodone-acetaminophen 5-325mg 5mg-325mg 1 tab PO Q4H PRN PRN Pain Score 4-10 7 days #42 tabs 05/09/22 Hospital Course Operations - (Open irrigation and debridement of synovium washout and polyethylene liner exchange left knee) Procedures 2-D Echocardiogram and PICC line placement Summary of Care Provided Minutes Spent on Discharge: 32 Hospital Course: 71-year-old white female was seen in the emergency room at [facility] with complaints of malaise. found the patient on the floor at home, patient did not believe she fell, thought that the patient had mild confusion. Evaluation in the emergency room showed the patient's temperature to be elevated at 101.3, pulse ox was 90% on room air, patient's heart rate and rhythm was irregular (she has a history of chronic A. fib), patient's pulse rate was 145, patient was started on IV Cardizem (bolus) and given fluids, heart rate decline to 90-105, patient was admitted to PCU for further care. Due to left knee swelling and warmth, orthopedic surgery was consulted, patient was maintained on IV vancomycin and Zosyn, ESR and CRP were noted to be elevated, her A. fib came under good control, patient remain on her home medications for atrial fib. Orthopedic surgery performed a joint aspiration which shows a large number of white blood cells, it was felt that the patient had a left knee periprosthetic infection, she was seen in consultation by infectious diseases and taken to surgery for a polyethylene exchange and left knee washout. Patient was seen by PT and OT following surgery, patient wanted to be discharged home rather than go to a care home facility and arrangements were made for her to receive outpatient IV antibiotic treatment, PICC line was inserted. On 05/09/2022, patient was seen and examined: On examination she appeared in good health and spirits, she does not appear to be in any distress. Vital signs as documented. Skin warm and dry and without overt rashes. Neck without JVD, thyroid appears normal, trachea is midline, neck is supple. Lungs clear, normal air movement was noted. Heart exam notable for irregular rhythm, normal sounds and absence of murmurs, rubs or gallops. Abdomen unremarkable and without evidence of organomegaly, masses, or abdominal aortic enlargement, bowel sounds are present in all 4 quadrants, no abdominal tenderness was noted. Extremities nonedematous, no cyanosis was noted, no clubbing was noted. Neuro: Cranial nerves II through XII are grossly intact, no focal motor deficits were noted, sensation to light touch and pinprick is intact, motor exam 5/5 throughout. Psy ch: Patient is alert and oriented x3, she does not appear anxious or depressed, she does not appear agitated. Patient was discharged home in stable condition on 05/09/2022 Weight / BMI Weight Weight: 106 kg Body Mass Index (BMI) 41.3 ABG / Lab / Microbiology Data Result Diagrams: 05/09/22 06:05 05/08/22 05:04 Laboratory: Laboratory Results - last 24 hr 05/09/22 06:05: WBC 9.0, RBC 3.28 L, Hgb 10.9 L, Hct 32.4 L, MCV 98.8, MCH 33.2 H, MCHC 33.6, RDW Std Deviation 49.5 H, RDW Coeff of Jeovanny 13.7, Plt Count 214, MPV 9.6 Microbiology: Microbiology 05/03/22 20:45 Blood Culture (Wb) - Left Hand Blood Culture - Final No growth in 5 days. 05/03/22 20:10 Blood Culture (Wb) - Left Hand Blood Culture - Final No growth in 5 days. 05/07/22 16:15 Tissue - Synovium Gram Stain - Final 05/07/22 16:15 Tissue - Synovium Wound Culture - Preliminary No growth-Final to follow 05/07/22 16:15 Tissue - Synovium Gram Stain - Final 05/07/22 16:15 Tissue - Synovium Wound Culture - Preliminary No growth-Final to follow 05/05/22 07:20 Fluid - Synovial (joint) Gram Stain - Final 05/05/22 07:20 Fluid - Synovial (joint) Body Fluid Culture - Preliminary No growth-Final to follow 05/03/22 23:57 Mucosa - Nose Respiratory Panel (PCR) - Final 05/03/22 20:10 Nasal Secretion SARS-CoV-2 Antigen (Rapid) - Final Radiography Diagnostic Testing: Radiology Impression Chest X-Ray 05/08/22 15:10 IMPRESSION: No acute disease status post PICC line placement. Electronically Signed: Dixon Avilez MD at 16:39 EST , D/C Instructions Discharge Diet: No restrictions Weight Bearing Status: Weight bearing as tolerated Cleanse incision/area with: Soap & Water (Antibacterial soap and water) Meaningful Use Info Meaningful Use Diagnoses (Choose all that apply): None applicable Discharge Plan Admission Admit Date/Time: 05/03/22 22:33 Primary Reason for Your Visit: Left knee infection (septic left total knee) Attending Provider: Parth Carlos Primary Care Provider: Bryce Somers Consulting Providers: Emerita Jarrett ; Armen Westfall ; Kaiden Montes ; Jw Brooks Discharge Orders/Prescriptions Prescriptions: New ceftriaxone 2 gram recon soln 2 g IV Q24H Qty: 40 0RF Rx Instructions: stop date 06/18/22 dx: knee PJI weekly bmp, cbc, vanc trough, and ESR. fax to [phone] routine picc care per protocol vancomycin 1.25 gram recon soln 1.25 g IV Q12H Qty: 80 0RF Rx Instructions: stop date 06/18/22 dx: knee PJI weekly bmp, cbc, vanc trough, and ESR. fax to [phone] routine picc care per protocol hydrocodone-acetaminophen 5-325 mg Tablet 1 tab PO Q4H PRN PRN (Reason: Pain Score 4-10) 7 Days Qty: 42 0RF Continued multivitamin tablet 1 tab PO DAILY lisinopril-hydrochlorothiazide 20-25 mg tablet 0.5 tab PO DAILY levothyroxine 150 mcg tablet 150 mcg PO DAILY metoprolol succinate 50 mg tablet extended release 24 hr 50 mg PO BID Qty: 180 3RF Eliquis 5 mg tablet 5 mg PO BID Qty: 180 3RF Discontinued hydrocodone-acetaminophen 5-325 mg tablet 1 tab PO Q4H PRN (Reason: pain) Qty: 56 0RF Rx Instructions: 1-2 tabs po Q 4hr prn pain Referrals / Follow Up: Bryce Somers DO [Primary Care Provider] - Armen Westfall DO [Med Staff - Active Staff] - See Referral Note (in two weeks- call for appointment) Disposition Disposition (needs filled in before D/C Order can be placed): Home Health Service Charges/Coding Visit Charges Inpatient E&M: 91491 Disch Hosp
[2022-05-09 17:12] LABS: Vancomycin, Trough Level 19.1 ug/mL (5.0-15.0)
== END 2022-05-09 18:51 | disposition home health service (06) | DRG 486 ==
LOC: ED 22:25 → PCU 22:56
PROVIDERS: Internal Medicine; Internal Medicine Infectious Disease; Orthopaedic Surgery; Admitting Provider Internal Medicine; Emergency Provider Emergency Medicine; PCP Family Medicine; Visit Provider Internal Medicine
PROC: 0SUW09Z Supplement Left Knee Joint, Tibial Surface with Liner, Open Approach (ICD-10-PCS; CPT 27301; principal; 2022-05-07 13:40)
DX: T84.54XA Infection and inflammatory reaction due to internal left knee prosthesis, initial encounter (principal); I48.21 Permanent atrial fibrillation; Z68.41 Body mass index [BMI] 40.0-44.9, adult; T84.84XA Pain due to internal orthopedic prosthetic devices, implants and grafts, initial encounter; E66.01 Morbid (severe) obesity due to excess calories; M25.562 Pain in left knee; E03.9 Hypothyroidism, unspecified; I10 Essential (primary) hypertension; M10.062 Idiopathic gout, left knee; R53.1 Weakness; Z87.891 Personal history of nicotine dependence; Z79.2 Long term (current) use of antibiotics; Z82.3 Family history of stroke; Z79.01 Long term (current) use of anticoagulants; Z96.652 Presence of left artificial knee joint; R50.9 Fever, unspecified
CPT/HCPCS: 36415; 36569; 70450; 71045; 73562; 80048; 80053; 80202; 81001; 82945; 83605; 83735; 84100; 84145; 84157; 84439; 84443; 84484; 84550; 85025; 85027; 85652; 86140; 87015; 87040; 87070; 87075; 87102; 87116; 87176; 87205; 87206; 87633; 87635; 87811; 89050; 89051; 89060; 93005; 93306; 97110; 97162; 97164; 97165; 97168; 97530; 97535; 97802; 97803; 99251; 99285; C1776; J7030; J7040; J7050; J7120; P9612; Q9957; A4216; G0463; J0696; J2405; U0003; U0005

== ENCOUNTER → 2022-05-26 | Outpatient (CLI) | payer MEDICARE, SELFPAY ==
[2022-05-26 11:41] LABS: Erythrocyte Sedimentation Rate 39 mm/hr (0-30)
[2022-05-26 11:42] LABS: Hematocrit 35.7 % (37-47); Hemoglobin 11.4 g/dL (12.0-15.0); Mean Corp Hgb Conc 31.9 g/dL (32-36); Mean Corpuscular Hgb 32.9 pg (27.0-32.0); Mean Corpuscular Volume 102.9 fL (81-99); Platelet Count 286 K/mm3 (150-450); RBC Distribution Width CV 15.4 % (11.6-14.6); RBC Distribution Width SD 57.9 fl (35.1-43.9); Red Blood Count 3.47 M/mm3 (4.2-5.4); White Blood Count 7.4 K/mm3 (4.4-11.0)
[2022-05-26 12:19] LABS: Vancomycin, Trough Level 22.3 ug/mL (5.0-15.0)
[2022-05-26 13:15] LABS: Anion Gap 4 (5-15); BUN 12 mg/dL (7-18); BUN/Creat Ratio 13.9 RATIO (10-20); Calcium,Total 9.1 mg/dL (8.5-10.1); Chloride 105 mmol/L (98-107); Creatinine, Serum 0.86 mg/dL (0.55-1.02); EST Glomerular Filtration Rate 69 mL/min (>60); Est Glom Filt Rate - Afr Amer 83 mL/min (>60); Glucose 91 mg/dL (74-106); Potassium 3.9 mmol/L (3.5-5.1); Sodium Level 140 mmol/L (136-145)
== END | disposition home or self-care (01) ==
LOC: LABSPEC 11:00
PROVIDERS: PCP Family Medicine; Visit Provider Internal Medicine Infectious Disease
DX: T84.54XD Infection and inflammatory reaction due to internal left knee prosthesis, subsequent encounter (principal)
CPT/HCPCS: 80048; 80202; 85027; 85652

== ENCOUNTER → 2022-06-09 | Outpatient (CLI) | payer MEDICARE, SELFPAY ==
[2022-06-09 10:51] LABS: Hematocrit 35.4 % (37-47); Hemoglobin 11.4 g/dL (12.0-15.0); Mean Corp Hgb Conc 32.2 g/dL (32-36); Mean Corpuscular Hgb 32.8 pg (27.0-32.0); Mean Corpuscular Volume 101.7 fL (81-99); Mean Platelet Vol. 10.6 fl (6.2-12.0); Platelet Count 235 K/mm3 (150-450); RBC Distribution Width CV 14.6 % (11.6-14.6); RBC Distribution Width SD 55.4 fl (35.1-43.9); Red Blood Count 3.48 M/mm3 (4.2-5.4); White Blood Count 7.2 K/mm3 (4.4-11.0)
[2022-06-09 11:03] LABS: Erythrocyte Sedimentation Rate 31 mm/hr (0-30)
[2022-06-09 11:04] LABS: Anion Gap 6 (5-15); BUN 17 mg/dL (7-18); BUN/Creat Ratio 20.2 RATIO (10-20); Chloride 105 mmol/L (98-107); Creatinine, Serum 0.84 mg/dL (0.55-1.02); EST Glomerular Filtration Rate 71 mL/min (>60); Est Glom Filt Rate - Afr Amer 86 mL/min (>60); Glucose 106 mg/dL (74-106); Potassium 3.7 mmol/L (3.5-5.1); Sodium Level 140 mmol/L (136-145)
[2022-06-09 11:05] LABS: Vancomycin, Trough Level 19.2 ug/mL (5.0-15.0)
== END | disposition home or self-care (01) ==
LOC: LABSPEC 10:23
PROVIDERS: PCP Family Medicine; Referring Provider Internal Medicine Infectious Disease; Visit Provider Internal Medicine Infectious Disease
DX: T84.54XD Infection and inflammatory reaction due to internal left knee prosthesis, subsequent encounter (principal)
CPT/HCPCS: 80048; 80202; 85027; 85652

== ENCOUNTER 2024-06-21 19:18 | Emergency (ER) | payer MEDICARE, SELFPAY ==
[2024-06-21] VITALS (11 sets, daily range): BP systolic 140–148; BP diastolic 90; PULSE 103–123; RESP 15–26; TEMP 36.1–36.5; O2SAT 96–99; BMI 39.4
--- NOTE | 2024-06-21 19:44 | US_ITS ---
INDICATION: postmenopausal bleeding- heavy EXAMINATION: US Transvaginal Non-OB TECHNIQUE: Transvaginal (for optimal evaluation of the adnexa) pelvic ultrasound was performed. Grayscale, spectral waveform, and color flow Doppler evaluation of the adnexa. COMPARISON: None. FINDINGS: UTERUS: Anteverted. The uterus measures 11 cm in length.. The endometrial stripe measures 2.8 cm in AP diameter which is thickened for a postmenopausal patient. RIGHT OVARY: Not visualized. LEFT OVARY: Not visualized. FREE FLUID: None. US/Transvaginal Non- IMPRESSION: Markedly thickened endometrial stripe in a postmenopausal patient. Differential includes endometrial hyperplasia and endometrial carcinoma. Recommend CRIMINAL RESEARCH SPECIALIST consult and endometrial biopsy. Electronically Signed: Benson Jason MD at 22:52 EST ,
--- NOTE | 2024-06-21 19:47 | EKG12_ITS ---
Test Reason : DYSRHYTHMIA Blood Pressure : */* mmHG Vent. Rate : 103 BPM Atrial Rate : * BPM P-R Int : * ms QRS Dur : 122 ms QT Int : 318 ms P-R-T Axes : * -45 8 degrees QTcB Int : 416 ms Atrial fibrillation with rapid ventricular response Right bundle branch block Left anterior fascicular block Bifascicular block Abnormal ECG Confirmed by MARGE MONCADA, MAURICE ([id number]), map editor JANEY MILLER ([id number]) on 06/23/2024 2:18:31 PM Referred By: Confirmed By: MAURICE BIRD MD
--- NOTE | 2024-06-21 19:54 | EDS_ITS ---
HPI History of Present Illness Chief Complaint: GI Bleed Narrative Narrative: Chief complaint and HPI: Bleeding. 73-year-old female with past medical history of atrial fibrillation on Eliquis, hypothyroidism, HTN presents for evaluation of bleeding. Patient states for the past 6 months she has been having intermittent bleeding. She states she thinks it is vaginal bleeding but is unsure. She states that she took a shower this evening and the bleeding significantly worsened. She states that it was more frequent and heavier. Patient states she believes she may have a bladder or rectal prolapse but she does not know which. Patient has not followed up with a PCP for her vaginal bleeding. She states she has not seen a drilling plant operator in many years. She used to see Dr. Valladares. Patient denies any fever, chills, lightheadedness, dizziness, weakness, abdominal pain, nausea, vomiting, dysuria. Review of systems: See HPI Medications: As listed on the chart Allergies: As listed on the chart PFSH: Per chart Vital signs: As listed on the chart. Reviewed. Physical exam: Gen: A&O x3, NAD Head: Normocephalic, atraumatic Eyes: No sclera icterus, conjunctiva clear ENT: Moist mucous membranes Neck: Trachea midline, No JVD CV: RRR, no murmurs, no peripheral edema Resp: Lungs CTA BL, no w/r/c GI: Abd soft, non-distended, non-tender, no r/r/g Rectal: Normal external examination. No evidence of hemorrhoids or fissures. Normal tone and sensation. No masses, fluctuance, or tenderness. No pain out of proportion. Stool brown. Pelvic: Normal external genitalia. No lesions, masses, or rashes appreciated. Active vaginal bleeding. No drainage. Bleeding through the cervix. Cervix is non-friable. No cervical motion tenderness appreciated. No sign of PID on examination. Musc: Full ROM, no deformity Skin: Warm, dry Neuro: Alert, oriented, grossly intact, sensation intact Psych: Cooperative, appropriate mood and affect [facility] Medical History Chronic anticoagulation Persistent atrial fibrillation Preop cardiovascular exam Obesity Rosacea Cystitis Acquired hypothyroidism Osteoarthritis Essential (primary) hypertension Home Medications ?Medication ?Instructions ?Recorded ?Last Taken ?Type levothyroxine 150 mcg tablet 150 mcg PO DAILY thyroid 10/01/18 05/02/22 History multivitamin 1 tab PO DAILY supplement 10/06/18 05/02/22 History lisinopril 20 0.5 tab PO DAILY blood pressure 05/03/22 05/02/22 History mg-hydrochlorothiazide 25 mg tablet apixaban 5 mg tablet (Eliquis) 5 mg PO BID afib #180 tabs 11/11/22 Unknown Rx metoprolol succinate 50 mg 50 mg PO BID heart #180 tabs 01/15/24 Unknown Rx tablet,extended release 24 hr Allergy/AdvReac Type Severity Reaction Status Date / Time adhesive tape AdvReac Intermediate Rash Verified 06/21/24 19:19 ibuprofen AdvReac Unknown Verified 06/21/24 19:19 latex AdvReac Rash Verified 06/21/24 19:19 sulfamethoxazole (From AdvReac Unknown Verified 06/21/24 19:19 ) trimethoprim (From ) AdvReac Unknown Verified 06/21/24 19:19 Family History Father Heart disease CVA (cerebral vascular accident) Sister Cancer lung cancer Surgical History History of left knee replacement History of tubal ligation History of total right hip replacement Hx of cholecystectomy Social History Smoking Status: Former smoker quit date: 03/22/90 pack-years: 30 alcohol intake: never substance use type: does not use caffeine: Yes what type of physical activity do you participate in: walking seatbelt use: always do you feel safe at home: Yes additional social history: Melvin lee are retired EXAM Physical Exam Const Vital Signs: 06/21/24 19:19 06/21/24 21:18 06/21/24 21:24 Temperature 97 F L Temperature Source Temporal Pulse Rate 123 H 105 H 108 H Respiratory Rate 16 18 16 Blood Pressure 148/90 H Blood Pressure Mean 109 Pulse Ox 99 97 98 Oxygen Delivery Method Room Air Room Air 06/21/24 21:30 06/21/24 21:45 06/21/24 22:00 Temperature Temperature Source Pulse Rate 111 H 110 H 103 H Respiratory Rate 17 19 H 15 Blood Pressure Blood Pressure Mean Pulse Ox 97 98 96 Oxygen Delivery Method 06/21/24 22:15 06/21/24 22:30 06/21/24 22:45 Temperature Temperature Source Pulse Rate 103 H 106 H 108 H Respiratory Rate 16 19 H 26 H Blood Pressure Blood Pressure Mean Pulse Ox 97 98 98 Oxygen Delivery Method 06/21/24 23:00 Temperature Temperature Source Pulse Rate 107 H Respiratory Rate 17 Blood Pressure 142/90 H Blood Pressure Mean 107 Pulse Ox 98 Oxygen Delivery Method MDM MDM MDM Narrative Medical decision making narrative: 73-year-old female with past medical history of atrial fibrillation on Eliquis, hypothyroidism, HTN presents for evaluation of bleeding. On physical exam, patient is bleeding from her vagina and not her rectum. Differential diagnosis includes but is not limited to uterine fibroid, endometrial cancer, anemia, UTI, supratherapeutic anticoagulation. Pelvic ultrasound ordered including basic labs. CBC without leukocytosis or anemia. Coagulation panel unremarkable. BMP relatively unremarkable. UA positive for blood which is consistent with vaginal bleeding. Negative for UTI. Pelvic ultrasound shows markedly thickened endometrial stripe. Differential includes endometrial hyperplasia and endometrial carcinoma. Given concern for possible endometrial carcinoma, patient will need close follow-up with EMPLOYMENT TRAINING SPECIALIST. Given that she saw Dr. Valladares in the past. Their office was consulted. I spoke to the application security specialist. Plan is for patient to call the office on morning to obtain close follow-up and appointment. Patient will likely need endometrial biopsy. Patient was updated on the results and confirmed understand the plan. Given her atrial fibrillation she is to continue her Eliquis given concern for stroke. Return back to the ED if symptoms change or worsen at this point in time patient's vaginal bleeding is improving. Patient is able to discharge home EKG: Interpreted by me/EM physician: EKG shows atrial fibrillation with heart rate of 103. EKG shows right bundle branch block and left anterior fascicular block. No acute ischemic changes. Impression: 1. Abnormal vaginal bleeding in postmenopausal female 2. History of atrial fibrillation on Eliquis Lab Data Labs: Laboratory Results - last 24 hr 06/21/24 06/21/24 19:30 20:05 WBC 10.2 RBC 4.08 L Hgb 13.2 Hct 39.4 MCV 96.6 MCH 32.4 H MCHC 33.5 RDW Std Deviation 44.1 H RDW Coeff of Jeovanny 12.5 Plt Count 230 MPV 10.6 Immature Gran % (Auto) 0.500 Neut % (Auto) 52.7 Lymph % (Auto) 33.8 [place] % (Auto) 10.5 H Eos % (Auto) 1.9 Baso % (Auto) 0.6 Absolute Neuts (auto) 5.4 Absolute Lymphs (auto) 3.44 Nucleated RBC % 0 PT 14.4 INR 1.1 APTT 29.2 Sodium 139 Potassium 3.4 L Chloride 106 Carbon Dioxide 28.0 Anion Gap 5 BUN 17 Creatinine 0.88 Estim Creat Clear Calc 58.97 Est GFR (MDRD) Af Amer 81 Est GFR (MDRD) Non-Af 67 BUN/Creatinine Ratio 19.3 Glucose 107 H Calcium 9.6 Urine Color Red Urine Clarity Cloudy Urine pH 6.0 Ur Specific [place] 1.010 Urine Protein 100 H Urine Glucose (UA) Normal Urine Ketones Negative Urine Occult Blood 250 H Urine Nitrite Negative Urine Bilirubin Negative Urine Urobilinogen Normal Ur Leukocyte Esterase 100 H Urine RBC 50-100 SEEN Urine WBC 0-5 SEEN Ur Squamous Epith Cells 0-5 SEEN Urine Bacteria 0 SEEN Hyaline Casts 0-5 SEEN Urine Mucus 0 SEEN Radiography Diagnostic Testing: Clinical Impression(s) from Imaging Studies Transvaginal US 06/21/24 19:44 IMPRESSION: Markedly thickened endometrial stripe in a postmenopausal patient. Differential includes endometrial hyperplasia and endometrial carcinoma. Recommend EMPLOYMENT TRAINING SPECIALIST consult and endometrial biopsy. Electronically Signed: Benson Jason MD at 22:52 EST Reading Location ID and State: [address] [place] [address] Tel , Service support , Discharge Plan Triage Chief Complaint: GI Bleed ED Provider: Sai Santos Dx/Rx/DC Orders Clinical Impression: Abnormal vaginal bleeding in postmenopausal patient Instructions: Understanding Uterine Bleeding Prescriptions: No Action multivitamin tablet 1 tab PO DAILY Eliquis 5 mg tablet 5 mg PO BID Qty: 180 3RF lisinopril-hydrochlorothiazide 20-25 mg tablet 0.5 tab PO DAILY levothyroxine 150 mcg tablet 150 mcg PO DAILY metoprolol succinate 50 mg tablet extended release 24 hr 50 mg PO BID Qty: 180 3RF Primary Care Provider: Bryce Somers Referrals: Petrilla,Bryce, DO [Primary Care Provider] - 3-5 Days Natalia Valladares MD [Med Staff - Active Staff] - 3-5 Days Activity Restrictions/Additional Instructions: Continue your Eliquis given risk of stroke. Return back to the ED if symptoms change or worsen. Your ultrasound shows a markedly thickened endometrial stripe. Concern is for possible endometrial cancer. You need to follow-up with Dr. Valladares in the [facility]. Call the office on letting them know the ultrasound results and that you need to be seen soon. Print Language: Japanese Disposition Disposition: Home, Self Care
[2024-06-21 19:56] LABS: Absolute Lymphocyte Count 3.44 X10^3/uL (0.83-4.51); Absolute Neutrophil Count 5.4 X10^3/uL (2.0-7.7); Basophil# 0.06 X10^3/uL; Basophil% 0.6 % (0-1); Eosinophil# 0.19 X10^3/uL; Eosinophils% 1.9 % (0-5); Hematocrit 39.4 % (37-47); Hemoglobin 13.2 g/dL (12.0-15.0); Lymphocyte # 3.44 X10^3/ul (0.83-4.51); Lymphocyte % 33.8 % (19-41); Mean Corp Hgb Conc 33.5 g/dL (32-36); Mean Corpuscular Hgb 32.4 pg (27.0-32.0); Mean Corpuscular Volume 96.6 fL (81-99); Mean Platelet Vol. 10.6 fl (6.2-12.0); Monocyte# 1.07 X10^3/uL; Monocyte% 10.5 % (0-10); NRBC Flagged by Analyzer 0 % (0-5); Neutrophil # 5.36 X10^3/uL (2.7-7.7); Neutrophil % 52.7 % (47-70); Platelet Count 230 K/mm3 (150-450); RBC Distribution Width CV 12.5 % (11.6-14.6); RBC Distribution Width SD 44.1 fl (35.1-43.9); Red Blood Count 4.08 M/mm3 (4.2-5.4); White Blood Count 10.2 K/mm3 (4.4-11.0)
[2024-06-21 20:06] LABS: International Normalized Ratio 1.1; Prothrombin Time (Protime)PT. 14.4 SECONDS (11.7-14.9)
[2024-06-21 20:07] LABS: Partial Thromboplast Time 29.2 Seconds (24.1-36.2)
[2024-06-21 20:11] LABS: Anion Gap 5 (5-15); BUN 17 mg/dL (7-18); BUN/Creat Ratio 19.3 RATIO (10-20); Calcium,Total 9.6 mg/dL (8.5-10.1); Chloride 106 mmol/L (98-107); Creatinine, Serum 0.88 mg/dL (0.55-1.02); EST Glomerular Filtration Rate 67 mL/min (>60); Est Glom Filt Rate - Afr Amer 81 mL/min (>60); Estimated Creatinine Clearance 58.97 ml/min; Glucose 107 mg/dL (74-106); Potassium 3.4 mmol/L (3.5-5.1); Sodium Level 139 mmol/L (136-145)
[2024-06-21 20:13] LABS: Bacteria 0 SEEN /hpf (None Seen); Mucous, Urine 0 SEEN /hpf (<or=2+)
[2024-06-21 20:15] LABS: Color, Urine Red (Yellow); Glucose, Dipstick Normal (Normal); Ketone-Dipstick Negative (Negative); Leukocyte Esterase-Dipstick 100 /ul (Negative); Nitrite-Dipstick Negative (Negative); Occult Blood-Urine 250 /ul (Negative); Protein-Dipstick 100 mg/dl (Negative); Urine Bilirubin Dipstick Negative (Negative); Urine Clarity Cloudy (Clear); Urine Urobilinogen Normal (Normal)
[2024-06-21 20:56] LABS: Hyaline Cast 0-5 SEEN /lpf (0-5); Red Blood Cells-Urine 50-100 SEEN /hpf (0-5); Squamous Epithelial Cells - UA 0-5 SEEN /hpf (5-10); White Blood Cells 0-5 SEEN /hpf (0-5)
== END 2024-06-21 23:27 | disposition home or self-care (01) ==
PROVIDERS: Emergency Provider Surgery; PCP Family Medicine; Visit Provider Surgery
DX: N93.9 Abnormal uterine and vaginal bleeding, unspecified (principal); I48.91 Unspecified atrial fibrillation; Z79.01 Long term (current) use of anticoagulants; Z87.891 Personal history of nicotine dependence; I10 Essential (primary) hypertension; Z78.0 Asymptomatic menopausal state; E03.9 Hypothyroidism, unspecified; Z98.51 Tubal ligation status; Z90.49 Acquired absence of other specified parts of digestive tract
CPT/HCPCS: 76830; 80048; 81001; 85025; 85610; 85730; 93005; 99284; A4216

== ENCOUNTER → 2025-05-02 | Outpatient (CLI) | payer MEDICARE, SELFPAY ==
--- NOTE | 2025-05-02 12:30 | BI_ITS ---
EXAM: BI/SCRN MAMM (CAD)W/JOHANA BILAT
== END | disposition home or self-care (01) ==
LOC: OPBI 12:12
PROVIDERS: PCP Family Medicine; Referring Provider Obstetrics & Gynecology; Visit Provider Obstetrics & Gynecology
DX: Z12.31 Encounter for screening mammogram for malignant neoplasm of breast (principal)
CPT/HCPCS: 77063; 77067